=== PATIENT | male | born 1935 | race Caucasian/White ===

== ENCOUNTER 2018-03-18 17:48 | Observation (INO) ==
[2018-03-18 19:08] LABS: Bilirubin,Urine Negative (Negative); Clarity,Urine Clear (Clear); Color,Urine Yellow (Yellw/Straw); Glucose,Urine (UA) Negative (Negative); Leukocyte Esterase,Urine Negative (Negative); Nitrite,Urine Negative (Negative); Specific Gravity,Urine 1.014 (1.002-1.035)
[2018-03-18 19:10] LABS: Baso % (Auto) 0.3 % (0.0-2.0); Eos # (Auto) 0.1 th/mm3 (0.0-0.4); Eos % (Auto) 0.8 % (0.0-4.0); Hematocrit 41.6 % (39.0-51.0); Hemoglobin 13.7 gm/dL (13.0-17.0); Lymph # (Auto) 0.8 th/mm3 (1.0-4.8); Lymph % (Auto) 6.4 % (9.0-44.0); Mean Corpuscular Hemoglobin 28.6 pg (27.0-34.0); Mean Corpuscular Volume 86.8 fL (80.0-100.0); Mean Platelet Volume 8.7 fL (7.0-11.0); Mono % (Auto) 8.1 % (0.0-8.0); Neut % (Auto) 84.4 % (16.0-70.0); Platelet Count 201 th/mm3 (150-450); Red Cell Distribution Width 13.7 % (11.6-17.2); White Blood Count 11.8 th/mm3 (4.0-11.0)
--- NOTE | 2018-03-18 19:19 | XR ---
EXAM DATE: 03/18/2018 7:16 PM EST AGE/SEX: 82 years / Male INDICATIONS: Pain and swelling in entire left foot. CLINICAL DATA: This is the patient's initial encounter. Patient reports that signs and symptoms have been present for 1 day and indicates a pain score of 5/10. MEDICAL/SURGICAL HISTORY: None. None. COMPARISON: No prior exams available for comparison. FINDINGS: No fractures or subluxations are seen of the left foot. Mild talonavicular, navicular/cuneiform and Lisfranc osteoarthritis present. There is associated dors al spurring of the talonavicular joint. Bones are mildly osteopenic. There is mild, generalized soft tissue swelling. No radiopaque foreign b sola demonstrated. CONCLUSION: Intact left foot. Mild hindfoot and midfoot degenerative changes. Nonspecific mild diffuse soft tissue swelling. Electronically signed by: Francis Henry MD 03/18/2018 7:18 PM EST
[2018-03-18 19:28] LABS: Amphetamine Screen,Urine Neg (Neg); Barbiturate Screen,Urine Neg (Neg); Cannabinoid Screen,Urine Neg (Neg); Cocaine Screen,Urine Neg (Neg)
[2018-03-18 19:29] LABS: Opiate Screen,Urine Neg (Neg)
[2018-03-18 19:31] LABS: Alanine Aminotransferase 26 U/L (12-78)
--- NOTE | 2018-03-18 19:31 | CT ---
EXAM DATE: 03/18/2018 7:27 PM EST AGE/SEX: 82 years / Male INDICATIONS: Trauma; head injury. Confusion. CLINICAL DATA: This is the patient's initial encounter. Patient reports that signs and symptoms have been present for 1 day and indicates a pain score of 4/10. MEDICAL/SURGICAL HISTORY: Dementia. None. RADIATION DOSE: 56.35 CTDI (mGy) COMPARISON: POI, MR BRAIN W AND W/O CONTRAST, 01/12/2018. . TECHNIQUE: CT of the head without contrast. Using automated exposure control and adjustment of the mA and/or kV according to patient size, radiation dose was kept as low as reasonably achievable to ob tain optimal diagnostic quality images. DICOM format image data is available electronically for revi ew and comparison. FINDINGS: Cerebrum: The ventricles are normal for age. No evidence of midline shift, mass lesion, hemorrhage or acute infarction. No extraaxial fluid collections are seen. Atrophy and chronic low-attenuation i n the periventricular white matter. 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 Posterior Fossa: The cerebellum and brainstem are intact. The 4th ventricle is midline. The cerebe llopontine angle is unremarkable. Extracranial: The visualized portion of the orbits is intact. Skull: The calvaria is intact. No evidence of skull fracture. CONCLUSION: 1. No bleed or other acute intracranial abnormality. 2. Atrophy and chronic ischemic changes. . Electronically signed by: Francis Henry MD 03/18/2018 7:30 PM EST
[2018-03-18 19:35] LABS: Alkaline Phosphatase 110 U/L (45-117); Total Protein 7.7 g/dL (6.4-8.2)
[2018-03-18 19:36] LABS: Albumin 3.4 g/dL (3.4-5.0); Anion Gap 8 meq/L (5-15); Aspartate Aminotransferase 33 U/L (15-37); Blood Urea Nitrogen 21 mg/dL (7-18); Calcium 9.1 mg/dL (8.5-10.1); Carbon Dioxide 31.6 meq/L (21.0-32.0); Chloride 94 meq/L (98-107); Glomerular Filtration Rate 46 mL/min (>89); Glucose,Random 177 mg/dL (74-106); Magnesium 1.9 mg/dL (1.5-2.5); Potassium 4.4 meq/L (3.5-5.1); Sodium 134 meq/L (136-145)
--- NOTE | 2018-03-18 19:45 | ED ---
HPI General Chief Complaint: Extremity Injury, Lower Stated Complaint: confused Time Seen by Provider: 03/18/18 17:56 Source: patient and family Mode of arrival: ambulatory Limitations: no limitations History of Present Illness HPI narrative: 82 yo M with AMS. + Hx normal pressure hydrocephalus. Increased agitation last few nights per , decreased appetite and generalized weakness. no fever. NPH medication reportedly increased a few days prior by Dr Casillas. L foot pain and swelling reported to be new. No falls. No fever/ chills. No c/o cp/sob. Hx provided mainly by . Related Data Home Medications Medication Instructions Recorded Confirmed amlodipine [Norvasc] 10 mg PO DAILY 03/18/18 03/18/18 aspirin [Aspirin Childrens] 81 mg PO DAILY 03/18/18 03/18/18 atorvastatin [Lipitor] 40 mg PO DAILY 03/18/18 03/18/18 metoprolol succinate [Toprol XL] 25 mg PO DAILY 03/18/18 03/18/18 quetiapine [Seroquel] 400 mg PO BID 03/18/18 03/18/18 triamterene-hydrochlorothiazid 1 cap PO DAILY 03/18/18 03/18/18 Allergies Allergy/AdvReac Type Severity Reaction Status Date / Time benazepril AdvReac Severe swelling Verified 03/18/18 22:51 of face lips captopril AdvReac Severe swelling Verified 03/18/18 22:51 of face lips enalaprilat AdvReac Severe swelling Verified 03/18/18 22:51 of face lips fosinopril AdvReac Severe swelling Verified 03/18/18 22:51 of face lips lisinopril AdvReac Severe swelling Verified 03/18/18 22:51 of face lips quinapril AdvReac Severe swelling Verified 03/18/18 22:51 of face lips Review of Systems ROS: all other systems reviewed are negative PMFSH Social History Social History Substance History: No History of Abuse Smoking Status: Never smoker How Often Do You Have a Drink Containing Alcohol: Never Recent Travel in [place] within the Last 8 Weeks: No Recent Out of Country Travel within the Last 8 Weeks: No Immunization History Tetanus Immunization: >5 Years Exam Narrative Exam Narrative: GENERAL: 82 yo M, WNWD, NAD, speaking full sentences SKIN: Focused skin assessment warm/dry. HEAD: Atraumatic. Normocephalic. EYES: Pupils equal and round. No scleral icterus. No injection or drainage. ENT: No nasal bleeding or discharge. Mucous membranes pink and moist. NECK: Trachea midline. No JVD. CARDIOVASCULAR: Regular rate and rhythm. No murmur appreciated. RESPIRATORY: No accessory muscle use. Clear to auscultation. Breath sounds equal bilaterally. GASTROINTESTINAL: Abdomen soft, non-tender, nondistended. Hepatic and splenic margins not palpable. MUSCULOSKELETAL: Tenderness w edema and warmth about dorsal L foot. 2+ DP bilaterally. RLE normal. No significant calf tenderness or swelling. NEUROLOGICAL: Answers questions. Normal speech. CN III-XII normal. Recent memory limited. PSYCHIATRIC: Appropriate mood and affect; insight and judgment normal. Course Initial Documented Vital Signs Pulse Rate 101 H 03/18/18 17:50 Blood Pressure 149/69 H 03/18/18 17:50 Pulse Oximetry 96 03/18/18 17:50 Last Documented Vital Signs Temperature 100.0 F H 03/18/18 22:05 Pulse Rate 97 H 03/18/18 22:44 Respiratory Rate 21 03/18/18 22:00 Blood Pressure 140/60 03/18/18 22:00 Pulse Oximetry 99 03/18/18 22:44 Critical Care Time Critical Care Time: Yes Total Critical Care Time: 35 Attestation: Aggregate critical care time was 35 minutes. Time to perform other separately billable procedures was not included in the critical care time. My time did not include minutes spent treating any other patients simultaneously or on activities that did not directly contribute to the patient's treatment. The services I provided to this patient were to treat and/or prevent clinically significant deterioration that could result in: septic shock, MODS I provided critical care services requiring my management, as noted below: Chart data review, documentation time, medication orders and management, vital sign assessments/reviewing monitor data, ordering and reviewing lab tests, ordering and interpreting/reviewing x-rays and diagnostic studies, care of the patient and discussion of the patient with the admitting physicians. Medical Decision Making MDM Narrative Medical decision making narrative: Upon reassessment fever 100.0 observed. Sepsis work up started. Possible L foot cellulitis as etiology. AMS with infection present. Keflex started for foot. Influenza pending. Call to [facility] at 1043pm. d/w Dr Artis at 1055pm. Medical Screen Exam Complete: Yes Emergency Medical Condition: Yes Differential Diagnosis Differential Diagnosis: infection, metabolic abnormality, polypharmacy, normal pressure hydrocephalus, CVA Lab Data Lab results reviewed: Yes I reviewed the patient's lab results. Result diagrams: 03/18/18 18:36 03/18/18 18:36 Lab Results 03/18/18 03/18/18 03/18/18 Range/Units 18:19 18:36 18:36 WBC 11.8 H (4.0-11.0) th/mm3 RBC 4.80 (4.50-5.90) mil/mm3 Hgb 13.7 (13.0-17.0) gm/dL Hct 41.6 (39.0-51.0) % MCV 86.8 (80.0-100.0) fL MCH 28.6 (27.0-34.0) pg MCHC 33.0 (32.0-36.0) % RDW 13.7 (11.6-17.2) % Plt Count 201 (150-450) th/mm3 MPV 8.7 (7.0-11.0) fL Neut % (Auto) 84.4 H (16.0-70.0) % Lymph % (Auto) 6.4 L (9.0-44.0) % Hall % (Auto) 8.1 H (0.0-8.0) % Eos % (Auto) 0.8 (0.0-4.0) % Baso % (Auto) 0.3 (0.0-2.0) % Neut # (Auto) 10.0 H (1.8-7.7) th/mm3 Lymph # (Auto) 0.8 L (1.0-4.8) th/mm3 Hall # (Auto) 1.0 H (0.0-0.9) th/mm3 Eos # (Auto) 0.1 (0.0-0.4) th/mm3 Baso # (Auto) 0.0 (0.0-0.2) th/mm3 WBC Differential . Differential Comment Auto diff final Sodium 134 L (136-145) meq/L Potassium 4.4 (3.5-5.1) meq/L Chloride 94 L (98-107) meq/L Carbon Dioxide 31.6 (21.0-32.0) meq/L Anion Gap 8 (5-15) meq/L BUN 21 H (7-18) mg/dL Creatinine 1.45 H (0.60-1.30) mg/dL Estimated GFR 46 L (>89) mL/min Random Glucose 177 H (74-106) mg/dL Lactic Acid (0.4-2.0) mmol/L Calcium 9.1 (8.5-10.1) mg/dL Magnesium 1.9 (1.5-2.5) mg/dL Total Bilirubin 0.8 (0.2-1.0) mg/dL AST 33 (15-37) U/L ALT 26 (12-78) U/L Alkaline Phosphatase 110 (45-117) U/L Troponin I Less than 0.02 L (0.02-0.05) ng/mL Total Protein 7.7 (6.4-8.2) g/dL Albumin 3.4 (3.4-5.0) g/dL Urine Color Yellow (Yellw/Straw) Urine Clarity Clear (Clear) Urine pH 7.0 (5.0-8.5) Ur Specific Matthews 1.014 (1.002-1.035) Urine Protein 30 H (Neg-Trace) mg/dL Urine Glucose (UA) Negative (Negative) mg/dL Urine Ketones Negative (Negative) mg/dL Urine Occult Blood Moderate H (Negative) Urine Nitrate Negative (Negative) Urine Bilirubin Negative (Negative) Urine Urobilinogen Less than 2 (Less than 2) mg/dL Ur Leukocyte Esterase Negative (Negative) Urine RBC 20 H (0-3) /hpf Urine WBC 1 (0-5) /hpf Micro UA Comment Culture not ind Ur Microscopic Review Not Reportable Urine Culture Comments Culture not ind Urine Opiates Screen (Neg) Ur Barbiturates Screen (Neg) Ur Amphetamines Screen (Neg) U Benzodiazepines Scrn (Neg) Urine Cocaine Screen (Neg) U Cannabinoids Screen (Neg) 03/18/18 03/18/18 Range/Units 22:30 Unknown WBC (4.0-11.0) th/mm3 RBC (4.50-5.90) mil/mm3 Hgb (13.0-17.0) gm/dL Hct (39.0-51.0) % MCV (80.0-100.0) fL MCH (27.0-34.0) pg MCHC (32.0-36.0) % RDW (11.6-17.2) % Plt Count (150-450) th/mm3 MPV (7.0-11.0) fL Neut % (Auto) (16.0-70.0) % Lymph % (Auto) (9.0-44.0) % Hall % (Auto) (0.0-8.0) % Eos % (Auto) (0.0-4.0) % Baso % (Auto) (0.0-2.0) % Neut # (Auto) (1.8-7.7) th/mm3 Lymph # (Auto) (1.0-4.8) th/mm3 Hall # (Auto) (0.0-0.9) th/mm3 Eos # (Auto) (0.0-0.4) th/mm3 Baso # (Auto) (0.0-0.2) th/mm3 WBC Differential Differential Comment Sodium (136-145) meq/L Potassium (3.5-5.1) meq/L Chloride (98-107) meq/L Carbon Dioxide (21.0-32.0) meq/L Anion Gap (5-15) meq/L BUN (7-18) mg/dL Creatinine (0.60-1.30) mg/dL Estimated GFR (>89) mL/min Random Glucose (74-106) mg/dL Lactic Acid 1.5 (0.4-2.0) mmol/L Calcium (8.5-10.1) mg/dL Magnesium (1.5-2.5) mg/dL Total Bilirubin (0.2-1.0) mg/dL AST (15-37) U/L ALT (12-78) U/L Alkaline Phosphatase (45-117) U/L Troponin I (0.02-0.05) ng/mL Total Protein (6.4-8.2) g/dL Albumin (3.4-5.0) g/dL Urine Color (Yellw/Straw) Urine Clarity (Clear) Urine pH (5.0-8.5) Ur Specific Matthews (1.002-1.035) Urine Protein (Neg-Trace) mg/dL Urine Glucose (UA) (Negative) mg/dL Urine Ketones (Negative) mg/dL Urine Occult Blood (Negative) Urine Nitrate (Negative) Urine Bilirubin (Negative) Urine Urobilinogen (Less than 2) mg/dL Ur Leukocyte Esterase (Negative) Urine RBC (0-3) /hpf Urine WBC (0-5) /hpf Micro UA Comment Ur Microscopic Review Urine Culture Comments Urine Opiates Screen Neg (Neg) Ur Barbiturates Screen Neg (Neg) Ur Amphetamines Screen Neg (Neg) U Benzodiazepines Scrn Neg (Neg) Urine Cocaine Screen Neg (Neg) U Cannabinoids Screen Neg (Neg) Imaging Data Radiologist's impression: Foot X-Ray 03/18/18 18:18 CONCLUSION: Intact left foot. Mild hindfoot and midfoot degenerative changes. Nonspecific mild diffuse soft tissue swelling. Head CT 03/18/18 18:18 CONCLUSION: 1. No bleed or other acute intracranial abnormality. 2. Atrophy and chronic ischemic changes. . Venous Doppler Study 03/18/18 18:18 CONCLUSION: 1. No sonographic evidence for lower extremity DVT. Chest X-Ray 03/18/18 21:56 CONCLUSION: No acute cardiopulmonary disease. Discharge Plan Discharge Disposition Patient Disposition: 30 Still Patient Physicians Team ED Provider: Aiden Castillo Primary Care Provider: UNKNOWN, Attending Provider: Eva Artis Status ED Status: Admitted Patient
--- NOTE | 2018-03-18 21:53 | US ---
EXAM DATE: 03/18/2018 9:50 PM EST AGE/SEX: 82 years / Male INDICATIONS: Right foot redness and swelling. CLINICAL DATA: This is the patient's initial encounter. Patient reports that signs and symptoms have been present for 1 week and indicates a pain score of 7/10. MEDICAL/SURGICAL HISTORY: Hypertension. Hypercholesterolemia. Chronic obstructive pulmonary d isease. CAD. . Spinal surgery. COMPARISON: No prior exams available for comparison. TECHNIQUE: Venous ultrasound of both lower extremities was performed from the inguinal ligament to t he proximal calf. Real-time, color Doppler and spectral tracing, compression and augmentation techni ques were used. FINDINGS: Right Leg: Normal compression of the deep venous system from the inguinal region to the proximal yvonne f. No echogenic clot is seen. Normal response of the venous system to augmentation and respiration. Left Leg: Normal compression of the deep venous system from the inguinal region to the proximal calf . No echogenic clot is seen. Normal response of the venous system to augmentation and respiration. Other: None. CONCLUSION: 1. No sonographic evidence for lower extremity DVT. Electronically signed by: Carlos Coats MD 03/18/2018 9:52 PM EST
[2018-03-18] MEDS ORDERED: Acetaminophen 325 MG Tablet PO ONE (22:05)
[2018-03-18] MEDS ORDERED: Sod Chloride 0.9% Inj 1,000 ML IV.SIG SCH ×2 (22:15)
--- NOTE | 2018-03-18 22:24 | XR ---
EXAM DATE: 03/18/2018 10:18 PM EST AGE/SEX: 82 years / Male INDICATIONS: Fever. Congestion. CLINICAL DATA: This is the patient's initial encounter. Patient reports that signs and symptoms have been present for 3 days and indicates a pain score of 5/10. MEDICAL/SURGICAL HISTORY: None. None. COMPARISON: [facility], XR CHEST PA AND LAT, 08/04/2017. . FINDINGS: No infiltrate, effusion or pneumothorax demonstrated. Heart size stable, within normal limits. Mildly tortuous thoracic aorta. CONCLUSION: No acute cardiopulmonary disease. Electronically signed by: Francis Henry MD 03/18/2018 10:23 PM EST
[2018-03-19] MEDS ORDERED: Bisacodyl 10 MG Supp RECTAL PRN (01:02)
--- NOTE | 2018-03-19 01:09 | P.HP ---
History of Present Illness Service: [facility] Primary Care Physician: UNKNOWN History of Present Illness: 82-year-old male with a past medical history significant for normal pressure hydrocephalus, peripheral vascular disease, hypertension, dementia and hyperlipidemia presents to the emergency department accompanied by his for the evaluation of altered mental status and a painful, swollen left foot. The patient's reports that on Wednesday the patient became increasingly agitated with confusion and insomnia. She spoke to the patient's neurologist who prescribed Seroquel 25 mg tablets. The patient reports that the pills did not help her and she increase the dose giving him up to 6 and a 24-hour period with no improvement in behavior. She also states that at approximately 9 PM last night the patient began to complain of left foot pain and would no longer bear weight on that foot. She states he has had right lower extremity weakness that also began yesterday which she noticed while trying to get him to stand with his walker. No fevers/chills. No chest pain or shortness of breath. No abdominal pain. No nausea/vomiting/diarrhea. Inpatient Certification: I certify that the inpatient services were ordered in accordance with Medicare regulations governing the order. This includes certification that hospital inpatient services are reasonable and necessary and in the case of services not specified as inpatient-only under 42 CFR 419.22(n), that they are appropriately provided as inpatient services in accordance to with the 2-midnight benchmark under 43 CFR 412.3(e) Review of Systems All other systems reviewed negative except as stated in [facility] - History History Provided By: Patient, Family Member - Medical History Medical History: Medical History (Last Updated 03/19/18 @ 01:07 by Eva Artis MD) Dementia Hyperlipidemia Hypertension Normal pressure hydrocephalus Peripheral vascular disease - Surgical History Surgical History: Surgical History (Last Updated 03/19/18 @ 01:08 by Eva Artis MD) Status post transcatheter aortic valve replacement - Tobacco History Smoking Status: Never smoker - Alcohol History How Often Do You Have a Drink Containing Alcohol: Never - Substance Use History Substance History: No History of Abuse - Travel History Recent Travel in the [place] Within the Last 8 Weeks: No Recent Travel Out of the Country Within the Last 8 Weeks: No - Immunization History Tetanus Immunization: >5 Years Medications and Allergies Active Medications: Active Medications Acetaminophen (Tylenol) 650 mg PO Q4H PRN PRN Reason: Temp > 100.4 Al Hydroxide/Mg Hydroxide (Milk Of Magnesia Liq) 30 ml PO Q12H PRN PRN Reason: Mild Constipation Amlodipine Besylate (Norvasc) 10 mg PO DAILY [facility] Aspirin (Aspirin Chew) 81 mg PO DAILY [facility] Atorvastatin Calcium (Lipitor) 40 mg PO DAILY [facility] Bisacodyl (Dulcolax Supp) 10 mg RECTAL DAILY PRN PRN Reason: SEVERE CONSITIPATION Cephalexin Monohydrate (Keflex) 500 mg PO Q6HR [facility] Heparin Sodium (Porcine) (Heparin Inj) 5,000 units SQ Q12H [facility] Sodium Chloride (Ns Inj) 1,000 mls @ 0 mls/hr IV.SIG .Q0M [facility] Last Infusion: 03/19/18 00:26 Dose: Infused Sodium Chloride (Ns Inj) 1,000 mls @ 0 mls/hr IV.SIG .Q0M [facility] Last Infusion: 03/19/18 00:27 Dose: Infused Sodium Chloride (Ns Inj) 1,000 mls @ 70 mls/hr IV.CONT .[id number] [facility] Lactulose (Lactulose Liq) 30 ml PO DAILY PRN PRN Reason: SEVERE CONSITIPATION Metoprolol Succinate (Toprol Xl) 25 mg PO DAILY [facility] Ondansetron HCl (Zofran Inj) 4 mg IV.PUSH Q6H PRN PRN Reason: NAUSEA OR VOMITING Senna/Docusate Sodium (Radha-Colace) 1 tab PO BID [facility] Sennosides (Senokot) 17.2 mg PO Q12H PRN PRN Reason: Moderate Constipation Sodium Chloride (Ns Flush) 2 ml IV.FLUSH PRN PRN PRN Reason: FLUSH AFTER USING IV ACCESS Last Admin: 03/18/18 21:56 Dose: 2 ml Triamterene/HCTZ (Dyazide 37.5/25 Mg) 1 cap PO DAILY [facility] Allergies Allergy/AdvReac Type Severity Reaction Status Date / Time benazepril AdvReac Severe swelling Verified 03/18/18 22:51 of face lips captopril AdvReac Severe swelling Verified 03/18/18 22:51 of face lips enalaprilat AdvReac Severe swelling Verified 03/18/18 22:51 of face lips fosinopril AdvReac Severe swelling Verified 03/18/18 22:51 of face lips lisinopril AdvReac Severe swelling Verified 03/18/18 22:51 of face lips quinapril AdvReac Severe swelling Verified 03/18/18 22:51 of face lips Home Medications Medication Instructions Recorded Confirmed Type amlodipine [Norvasc] 10 mg PO DAILY 03/18/18 03/18/18 History aspirin [Aspirin Childrens] 81 mg PO DAILY 03/18/18 03/18/18 History atorvastatin [Lipitor] 40 mg PO DAILY 03/18/18 03/18/18 History metoprolol succinate [Toprol XL] 25 mg PO DAILY 03/18/18 03/18/18 History quetiapine [Seroquel] 25 mg PO DAILY 03/18/18 03/19/18 History triamterene-hydrochlorothiazid 1 cap PO DAILY 03/18/18 03/18/18 History cyanocobalamin (vitamin B-12) 1 cap PO DAILY 03/19/18 03/19/18 History [Vitamin B-12] Exam Vital signs: Vital Signs 03/18/18 17:50 03/18/18 17:54 03/18/18 22:00 Temperature Pulse Rate 101 H 102 H 102 H Respiratory Rate 18 21 Blood Pressure 149/69 H 149/69 H 140/60 Pulse Oximetry 96 94 L 96 03/18/18 22:05 03/18/18 22:44 03/19/18 00:27 Temperature 100.0 F H 99.9 F H Pulse Rate 97 H 94 H Respiratory Rate Blood Pressure Pulse Oximetry 99 Intake & Output 03/18/18 03/18/18 03/19/18 06:59 18:59 06:59 Intake Total 2099 Output Total 500 / 500 Balance 1600 / 1600 Weight 194 kg Intake: IV 2099 NS Inj 1,000 ML @ Wide Open IV. 2099 SIG .Q0M [facility] Rx#:[id number] Output: Urine 500 / 500 Narrative: Gen.: No acute distress Head: Normocephalic. Atraumatic. EENT: Pupils equal round and reactive to light. Nose without drainage. Airway intact. Throat without injection. Cardiovascular: Regular rate and rhythm. No murmurs, rubs or gallops. Respiratory: Lungs clear to auscultation bilaterally. No wheezes or rhonchi. Abdomen: Soft, nontender, nondistended. No peritoneal signs. Musculoskeletal: No gross deformities. Swollen, painful left foot/ankle without redness Skin: No obvious rashes or erythema. Neuro: Sensory and motor grossly intact. Cranial nerves II through XII grossly intact. 5/5 upper and lower extremity strength. Results - Labs CBC & Chem 7: 03/18/18 18:36 03/18/18 18:36 Labs: Laboratory Results - last 24 hr 03/18/18 03/18/18 03/18/18 18:19 18:36 18:36 WBC 11.8 H RBC 4.80 Hgb 13.7 Hct 41.6 MCV 86.8 MCH 28.6 MCHC 33.0 RDW 13.7 Plt Count 201 MPV 8.7 Neut % (Auto) 84.4 H Lymph % (Auto) 6.4 L [place] % (Auto) 8.1 H Eos % (Auto) 0.8 Baso % (Auto) 0.3 Neut # (Auto) 10.0 H Lymph # (Auto) 0.8 L [place] # (Auto) 1.0 H Eos # (Auto) 0.1 Baso # (Auto) 0.0 WBC Differential . Differential Comment Auto diff final Sodium 134 L Potassium 4.4 Chloride 94 L Carbon Dioxide 31.6 Anion Gap 8 BUN 21 H Creatinine 1.45 H Estimated GFR 46 L Random Glucose 177 H Lactic Acid Calcium 9.1 Magnesium 1.9 Total Bilirubin 0.8 AST 33 ALT 26 Alkaline Phosphatase 110 Troponin I Less than 0.02 L Total Protein 7.7 Albumin 3.4 Urine Color Yellow Urine Clarity Clear Urine pH 7.0 Ur Specific [place] 1.014 Urine Protein 30 H Urine Glucose (UA) Negative Urine Ketones Negative Urine Occult Blood Moderate H Urine Nitrate Negative Urine Bilirubin Negative Urine Urobilinogen Less than 2 Ur Leukocyte Esterase Negative Urine RBC 20 H Urine WBC 1 Micro UA Comment Culture not ind Ur Microscopic Review Not Reportable Urine Culture Comments Culture not ind Urine Opiates Screen Ur Barbiturates Screen Ur Amphetamines Screen U Benzodiazepines Scrn Urine Cocaine Screen U Cannabinoids Screen 03/18/18 03/18/18 22:30 Unknown WBC RBC Hgb Hct MCV MCH MCHC RDW Plt Count MPV Neut % (Auto) Lymph % (Auto) [place] % (Auto) Eos % (Auto) Baso % (Auto) Neut # (Auto) Lymph # (Auto) [place] # (Auto) Eos # (Auto) Baso # (Auto) WBC Differential Differential Comment Sodium Potassium Chloride Carbon Dioxide Anion Gap BUN Creatinine Estimated GFR Random Glucose Lactic Acid 1.5 Calcium Magnesium Total Bilirubin AST ALT Alkaline Phosphatase Troponin I Total Protein Albumin Urine Color Urine Clarity Urine pH Ur Specific [place] Urine Protein Urine Glucose (UA) Urine Ketones Urine Occult Blood Urine Nitrate Urine Bilirubin Urine Urobilinogen Ur Leukocyte Esterase Urine RBC Urine WBC Micro UA Comment Ur Microscopic Review Urine Culture Comments Urine Opiates Screen Neg Ur Barbiturates Screen Neg Ur Amphetamines Screen Neg U Benzodiazepines Scrn Neg Urine Cocaine Screen Neg U Cannabinoids Screen Neg - Imaging Impressions Foot X-Ray 03/18/18 18:18 CONCLUSION: Intact left foot. Mild hindfoot and midfoot degenerative changes. Nonspecific mild diffuse soft tissue swelling. Head CT 03/18/18 18:18 CONCLUSION: 1. No bleed or other acute intracranial abnormality. 2. Atrophy and chronic ischemic changes. . Venous Doppler Study 03/18/18 18:18 CONCLUSION: 1. No sonographic evidence for lower extremity DVT. Chest X-Ray 03/18/18 21:56 CONCLUSION: No acute cardiopulmonary disease. Caprini VTE Risk Assessment Caprini VTE Risk Assessment: Moderate/High Risk (score >= 2) Caprini Risk Assessment Model: Point Value = 1 Point Value = 2 Point Value = 3 Point Value = 5 Age 41-60 Minor surgery BMI > 25 kg/m2 Swollen legs Varicose veins or History of unexplained or recurrent spontaneous Oral contraceptives or hormone replacement Sepsis (< 1 month) Serious lung disease, including pneumonia (< 1 month) Abnormal pulmonary function Acute myocardial infarction Congestive heart failure (< 1 month) History of inflammatory bowel disease Medical patient at bed rest Age 61-74 Arthroscopic surgery Major open surgery (> 45 min) Laparoscopic surgery (> 45 min) Malignancy Confined to bed (> 72 hours) Immobilizing plaster cast Central venous access Age >= 75 History of VTE Family history of VTE Factor V Leiden Prothrombin [id number] Lupus anticoagulant Anticardiolipin antibodies Elevated serum homocysteine Heparin-induced thrombocytopenia Other congenital or acquired thrombophilia Stroke (< 1 month) Elective arthroplasty Hip, pelvis, or leg fracture Acute spinal cord injury (< 1 month) Prophylaxis Regimen: Total Risk Factor Score Risk Level Prophylaxis Regimen 0-1 Low Early ambulation 2 Moderate Order ONE of the following: *Sequential Compression Device (SCD) *Heparin 5000 units SQ BID 3-4 Higher Order ONE of the following medications: *Heparin 5000 units SQ TID *Enoxaparin/Lovenox 40 mg SQ daily (WT < 150 kg, CrCl > 30 mL/min) *Enoxaparin/Lovenox 30 mg SQ daily (WT < 150 kg, CrCl > 10-29 mL/min) *Enoxaparin/Lovenox 30 mg SQ BID (WT < 150 kg, CrCl > 30 mL/min) AND/OR *Sequential Compression Device (SCD) 5 or more Highest Order ONE of the following medications: *Heparin 5000 units SQ TID (Preferred with Epidurals) *Enoxaparin/Lovenox 40 mg SQ daily (WT < 150 kg, CrCl > 30 mL/min) *Enoxaparin/Lovenox 30 mg SQ daily (WT < 150 kg, CrCl > 10-29 mL/min) *Enoxaparin/Lovenox 30 mg SQ BID (WT < 150 kg, CrCl > 30 mL/min) AND *Sequential Compression Device (SCD) Assessment and Plan - Plan Assessment/plan: 1. Altered mental status/dementia Unclear etiology Head CT negative for acute process Urine drug screen negative Neurology consulted, appreciate recommendations T-max 100.0 on arrival, no obvious signs of infection. Chest x-ray negative for acute process, UA negative Concern for possible cellulitis of left foot, per patient's it was red and hot. Keflex 3. Left foot swelling/pain ? Cellulitis -ABX as above Foot x-ray negative Ankle x-ray pending as patient refusing to bear weight Lower extremity ultrasound negative for DVT 4. Hypertension/hyperlipidemia/dementia Continue home medication 5. NPH Neurology consulted as above 6. AK I At noon 1.45, baseline unknown May be chronic component IV fluid hydration Monitor renal function FEN Regular diet Electrolytes: Monitor and replete as needed Heparin NS at 70 cc/hour
[2018-03-19] MEDS ORDERED: Sod Chloride 0.9% Inj 1,000 ML IV.CONT SCH (01:15)
[2018-03-19] MEDS: Heparin - SQ 10,000 UNITS/ML Vial SQ SCH ×2 (05:04→17:08)
[2018-03-19] MEDS: amLODIPine 10 MG Tablet PO SCH (08:27)
[2018-03-19] MEDS: Senna/Docusate Sodium 8.6/50 MG Tablet PO SCH ×2 (08:27→22:00)
--- NOTE | 2018-03-19 08:56 | XR ---
EXAM DATE: 03/19/2018 8:52 AM EST AGE/SEX: 82 years / Male INDICATIONS: Swelling. CLINICAL DATA: This is the patient's initial encounter. Patient reports that signs and symptoms have been present for 1 day and indicates a pain score of 6/10. MEDICAL/SURGICAL HISTORY: . Hypertension. Hypercholesterolemia. Chronic obstructive pulmonary d isease. CAD. . Spinal surgery. . COMPARISON: [facility], FOOT COMPLETE LEFT 3V, 03/18/2018. . FINDINGS: No acute fracture is seen. The ankle is normally aligned. There are bony density seen inferior to the medial malleolus presumably representing the sequela of prior injury. There is hypertrophic spurring seen at the dorsal aspect of the proximal navicular bone. The bones appear osteopenic. CONCLUSION: No acute bony abnormality is seen. Electronically signed by: Francis Palencia MD 03/19/2018 8:54 AM EST
[2018-03-19] MEDS: Escitalopram 10 MG Tablet PO SCH (09:59)
--- NOTE | 2018-03-19 10:10 | MB ---
cc: Carl Osei MD DATE: 03/19/2018 HISTORY OF PRESENT ILLNESS: An 82-year-old right-handed male with hypertension, hypercholesterolemia, aortic valve replacement with a tissue valve. He takes baby aspirin a day. He had prostate cancer without mets. 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 Was seen in [place] and also the [facility]. Evidently had 2 lumbar drains which may have helped his gait a little bit, but not too much, and it was recommended by the neurology neurosurgeon to his not to put a shunt in. As such, shunt has not been put in. He follows Dr. Casillas in the office. He has been belligerent and very critical, especially over the last month or so. He has been put on Seroquel about a week ago. He has had some difficulty walking. Came in, his right foot is swollen and warm. He has been running a fever. Some peripheral vascular disease apparently, according to his . MEDICATIONS AT HOME: 1. Norvasc. 2. Aspirin. 3. Lipitor. 4. Metoprolol. 5. Seroquel 400 twice a day. 6. Triamterene. CURRENT MEDICATIONS HERE: He is on 1. Lipitor. 2. Aspirin. 3. Keflex. 4. Some subcutaneous heparin. ALLERGIES: HE IS ALLERGIC TO 1. BENAZEPRIL 2. CAPTOPRIL 3. ENALAPRIL. 4. FOSINOPRIL 5. LISINOPRIL. 6. QUINAPRIL. SOCIAL HISTORY: Nonsmoker, drinker, lives with his . FAMILY HISTORY: Negative for cancer, seizure, or stroke. REVIEW OF SYSTEMS: According to his . No diabetes, RI, stent, angioplasty, AFib, Coumadin, renal, hepatic, or pulmonary disease, thyroid disease, lupus, ulcer, seizure, or stroke. PHYSICAL EXAMINATION: VITAL SIGNS: T-max 100, 84, 18, 157/72. NECK: There were no carotid bruits. HEART: Regular rhythm. I did not detect a murmur. NEUROLOGIC: Pupils are equal. Visual rivers are full. Extraocular movements are intact without nystagmus. Face is symmetric with normal sensation. Tongue was midline. There is no drift. He had normal strength in upper and lower extremities bilaterally including the left iliopsoas, hamstring, quadriceps, and toe extensors. It is tender on the left foot and it is swollen. It feels warm. DTRs are trace to absent throughout. Toes were downgoing bilaterally. Pinprick was intact throughout, except for slightly decreased in the left foot. He is not ataxic on [id number]. He does not know the year or the month. He can repeat well, but his short-term memory is 0/3 at 3 and 5 minutes. His mood is good today. LABORATORY STUDIES: His white count was 11.8. CBC otherwise is normal. BMP: His creatinine is 1.45, otherwise normal. LFTs were normal. Troponin negative. UA negative. Urine drug screen negative. CT scan of the brain shows an old right parietal infarct and significant ventriculomegaly and some [id number] cortical atrophy, but it does appear to be consistent with NPH, I would say. He had a venous Doppler of his leg taken. No evidence for DVT on either leg. He had an ankle x-ray that was normal. IMPRESSION: Normal pressure hydrocephalus with dementia. We will try him on some Namenda. We can keep him off of Seroquel for now, see how he does. Physical therapy ambulated him and he did not do too bad with favored that right leg due to pain. Certainly without a shunt and the NPH, he has developed significant dementia and he can follow up with Dr. Casillas for that. We will stick him on some Namenda here. When his infection in his foot is resolved, he could be discharged. Since he has been very hypercritical, I am going to start him on some Lexapro here. He has had an old stroke, right parietal, and I am going to defer to his followup with Dr. Casillas about any workup that has been done in the past or that he needs for that. MD ALCIDES Boyce/gerald , 09:30 AM , 09:39 AM
--- NOTE | 2018-03-19 13:41 | ECG ---
Date Performed: 03/18/2018 Time Performed: 18:43:45 PTAGE: 82 years EKG: Sinus rhythm WITH FIRST DEGREE AV BLOCK MARKED LEFT AXIS DEVIATION INTRAVENTRICULAR CONDUCTION DELAY ABNORMAL ECG NO PREVIOUS TRACING DOCTOR: Danny Torres Interpretating Date/Time 03/19/2018 13:40:42
[2018-03-19] MEDS ORDERED: Polyethylene Glycol 3350 17 GM Packet PO ONE (15:00)
[2018-03-19 19:43] LABS: Uric Acid 5.9 mg/dl (2.6-7.2)
--- NOTE | 2018-03-19 19:51 | CT ---
EXAM DATE: 03/19/2018 7:33 PM EST AGE/SEX: 82 years / Male INDICATIONS: Left ankle pain and swelling. No known injury. CLINICAL DATA: This is the patient's initial encounter. Patient reports that signs and symptoms have been present for > 1 year and indicates a pain score of 10/10. MEDICAL/SURGICAL HISTORY: Hypertension. Dementia. PVD. None. RADIATION DOSE: 7.29 CTDI (mGy) COMPARISON: [facility], ANKLE COMPLETE LEFT MIN 3V, 03/19/2018. . TECHNIQUE: Multiple contiguous axial images were acquired using a multirow detector CT scanner witho ut contrast. Multiplanar reconstruction was performed in the sagittal and coronal planes. Using aut omated exposure control and adjustment of the mA and/or kV according to patient size, radiation dose was kept as low as reasonably achievable to obtain optimal diagnostic quality images. DICOM format i mage data is available electronically for review and comparison. FINDINGS: There is generalized osteopenia. No acute fractures or subluxations are demonstrated. There is mild t o moderate ankle, subtalar, talonavicular and calcaneocuboid osteoarthritis. Small osteochondral bodi es are seen posteriorly of the tibiotalar joint. There are old, small avulsion fracture fragments of the tip of the medial malleolus and to a lesser extent the tip of the lateral malleolus. Focal benign -appearing cystic change seen of the calcaneus in the region of the ligament of the sinus Tarsi. Ther e does appear to be some synovial thickening within the sinus Tarsi. Mild thickening and marginal indistinctness of the peroneus brevis and longus tendons. No evidence of tear. There is mild thickening of the Achilles tendon. There is fairly generalized but lateral predominant subcutaneous edema. Nothing organized or drainabl e. CONCLUSION: 1. No fracture or subluxation of the left ankle. No destructive bone changes are demonstrated. 2. 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 3. Probable synovitis in the sinus Tarsi, nonspecific. 4. Evidence of old medial and lateral ankle sprains/avulsion fractures. No acute ligamentous abnorm ality demonstrated. 5. Mild peroneal tendinosis without evidence of tear. 6. Mild Achilles tendinosis. 7. Lateral predominant subcutaneous edema. No organized or drainable fluid seen. Electronically signed by: Francis Henry MD 03/19/2018 7:49 PM EST
[2018-03-20] MEDS ORDERED: Melatonin 5 MG Tablet PO ONE (01:59)
[2018-03-20] MEDS: Heparin - SQ 10,000 UNITS/ML Vial SQ SCH ×2 (06:35→17:11)
[2018-03-20 07:11] LABS: Baso % (Auto) 0.2 % (0.0-2.0); Eos # (Auto) 0.2 th/mm3 (0.0-0.4); Hematocrit 34.5 % (39.0-51.0); Hemoglobin 11.7 gm/dL (13.0-17.0); Lymph # (Auto) 0.7 th/mm3 (1.0-4.8); Mean Corpuscular HGB Conc 33.8 % (32.0-36.0); Mean Corpuscular Hemoglobin 29.7 pg (27.0-34.0); Mean Corpuscular Volume 87.7 fL (80.0-100.0); Mean Platelet Volume 9.2 fL (7.0-11.0); Mono # (Auto) 0.8 th/mm3 (0.0-0.9); Mono % (Auto) 8.3 % (0.0-8.0); Neut # (Auto) 8.3 th/mm3 (1.8-7.7); Neut % (Auto) 82.5 % (16.0-70.0); Platelet Count 190 th/mm3 (150-450); Red Blood Count 3.93 mil/mm3 (4.50-5.90); Red Cell Distribution Width 13.6 % (11.6-17.2); White Blood Count 10.1 th/mm3 (4.0-11.0)
[2018-03-20 07:21] LABS: Calcium 8.5 mg/dL (8.5-10.1); Carbon Dioxide 30.5 meq/L (21.0-32.0); Potassium 3.8 meq/L (3.5-5.1)
--- NOTE | 2018-03-20 07:55 | P.PN ---
Subjective Interval history: Follow-up on patient with normal pressure hydrocephalus, left ankle pain. Patient seen and examined. is at the bedside. Also discussed with nursing staff, patient did not sleep well last night. Patient's states he has been more confused today similar to what she has been witnessing at home for the past 10 days. Patient states that the swelling and pain in the left ankle has improved. communicates the patient's had some difficulty swallowing at home. Patient still has not had a bowel movement. He denies any fever, chills or cough. He denies any chest pain or shortness of breath. He denies any nausea, vomiting or abdominal pain. Physical Exam Vital signs: Vital Signs 03/19/18 08:00 03/19/18 12:00 03/19/18 12:19 Temperature 99.5 F 98.6 F Pulse Rate 84 80 Respiratory Rate 18 18 Blood Pressure 157/72 H 169/72 H Pulse Oximetry 95 94 L 96 03/19/18 12:25 03/19/18 15:04 03/19/18 16:00 Temperature 98.3 F Pulse Rate 85 86 Respiratory Rate 12 18 Blood Pressure 137/63 Pulse Oximetry 94 L 03/19/18 17:29 03/19/18 17:40 03/19/18 20:00 Temperature 98.9 F Pulse Rate 82 85 Respiratory Rate 20 Blood Pressure 157/71 H Pulse Oximetry 96 92 L 03/19/18 20:30 03/20/18 00:00 03/20/18 01:04 Temperature 98.8 F Pulse Rate 82 86 Respiratory Rate 20 16 Blood Pressure 140/87 Pulse Oximetry 91 L 03/20/18 04:00 03/20/18 07:00 Temperature 97.3 F L Pulse Rate 85 Respiratory Rate 20 12 Blood Pressure 161/72 H Pulse Oximetry 91 L Intake & Output 03/19/18 03/20/18 03/20/18 18:59 06:59 18:59 Intake Total 640 / 640 Output Total 750 / 750 Balance -110 / -110 Weight 98.9 kg Intake: IV 140 / 140 NS Inj 1,000 ML @ 70 mls/hr IV. 140 / 140 CONT .[id number] [facility] Rx#:[id number] Oral 500 / 500 Output: Urine 750 / 750 Other: Post Void Residual 3 Date of Last Bowel Movement 03/17/18 03/17/18 Narrative: GENERAL: Well-developed well-nourished elderly male patient, no acute distress. Awake and alert. Confused. is at the bedside. SKIN: Warm and dry. No generalized rash. +Lipomas right upper back. HEENT: Atraumatic. Normocephalic. Pupils equal and round. No scleral icterus. No injection or drainage. No nasal bleeding or discharge. Mucous membranes pink and moist. NECK: Trachea midline. CARDIOVASCULAR: Regular rate and rhythm. RESPIRATORY: No accessory muscle use. Clear to auscultation. Breath sounds equal bilaterally. GASTROINTESTINAL: Abdomen soft, non-tender, nondistended. +BS. MUSCULOSKELETAL: Extremities without clubbing or cyanosis, or edema. Left foot/ ankle edema less prominent. Mildly tender to palpation. Patient has tenderness to palpation of the instep of the right foot. No signs or symptoms of infection. NEUROLOGICAL: Awake and alert. Confused. Partially oriented. No obvious cranial nerve deficits. Able to move all extremities spontaneously. Nonfocal. Normal speech. PSYCHIATRIC: Calm and cooperative. Judgment and insight are poor. Results - Labs CBC & Chem 7: 03/20/18 04:23 03/20/18 04:23 Laboratory Results - last 24 hr 03/19/18 03/19/18 03/20/18 18:46 18:46 04:23 WBC 10.1 RBC 3.93 L Hgb 11.7 L D Hct 34.5 L MCV 87.7 MCH 29.7 MCHC 33.8 RDW 13.6 Plt Count 190 MPV 9.2 Neut % (Auto) 82.5 H Lymph % (Auto) 7.0 L Ogle % (Auto) 8.3 H Eos % (Auto) 2.0 Baso % (Auto) 0.2 Neut # (Auto) 8.3 H Lymph # (Auto) 0.7 L Ogle # (Auto) 0.8 Eos # (Auto) 0.2 Baso # (Auto) 0.0 WBC Differential . Differential Comment Auto diff final ESR 52 H Sodium Potassium Chloride Carbon Dioxide Anion Gap BUN Creatinine Estimated GFR Random Glucose Uric Acid 5.9 Calcium C-Reactive Protein 23.00 H 03/20/18 04:23 WBC RBC Hgb Hct MCV MCH MCHC RDW Plt Count MPV Neut % (Auto) Lymph % (Auto) Ogle % (Auto) Eos % (Auto) Baso % (Auto) Neut # (Auto) Lymph # (Auto) Ogle # (Auto) Eos # (Auto) Baso # (Auto) WBC Differential Differential Comment ESR Sodium 140 Potassium 3.8 Chloride 101 Carbon Dioxide 30.5 Anion Gap 9 BUN 29 H Creatinine 1.44 H Estimated GFR 47 L Random Glucose 186 H Uric Acid Calcium 8.5 C-Reactive Protein Microbiology 03/18/18 22:30 Blood - Peripheral Aerobic Blood Culture - Preliminary No growth in 1 day 03/18/18 22:30 Blood - Peripheral Anaerobic Blood Culture - Preliminary No growth in 1 day 03/18/18 22:30 Blood - Peripheral Aerobic Blood Culture - Preliminary No growth in 1 day 03/18/18 22:30 Blood - Peripheral Anaerobic Blood Culture - Preliminary No growth in 1 day - Imaging Impressions Ankle CT 03/19/18 00:00 CONCLUSION: 1. No fracture or subluxation of the left ankle. No destructive bone changes are demonstrated. 2. 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 3. Probable synovitis in the sinus Tarsi, nonspecific. 4. Evidence of old medial and lateral ankle sprains/avulsion fractures. No acute ligamentous abnormality demonstrated. 5. Mild peroneal tendinosis without evidence of tear. 6. Mild Achilles tendinosis. 7. Lateral predominant subcutaneous edema. No organized or drainable fluid seen. Ankle X-Ray 03/19/18 00:00 CONCLUSION: No acute bony abnormality is seen. Assessment and Plan - Plan 82-year-old male with a past medical history significant for normal pressure hydrocephalus, peripheral vascular disease, hypertension, dementia and hyperlipidemia presents to the emergency department accompanied by his for the evaluation of altered mental status and a painful, swollen left foot. Altered mental status/acute encephalopathy likely multifactorial in patient with normal pressure hydrocephalus with dementia. Also patient with insomnia/ poor sleep last night which may be contributing factor. Unclear etiology Head CT negative for acute process Urine drug screen negative Neurology consulted, appreciate recommendations T-max 100.0 on arrival, no obvious signs of infection. Chest x-ray negative for acute process, UA negative Concern for possible cellulitis of left foot, per patient's it was red and hot. Keflex NPH -Nephrology following, appreciate assistance. Started on Namenda and Lexapro. Keep patient off of Seroquel. Cleared for discharge, needs to follow-up with Dr. Casillas as outpatient. Left foot swelling/pain, improved ? Cellulitis Possible gout/pseudogout ESR 52, CRP 23 Foot x-ray negative Ankle x-ray negative CT ankle no evidence of fracture or subluxation, osteoarthritis, probable synovitis and tendinosis, subcutaneous edema without organized or drainable fluid Lower extremity ultrasound negative for DVT -Continue on Keflex -Continue on Colchicine -Continue to monitor for improvement Hypertension/hyperlipidemia/dementia -Continue patient on Dyazide, Norvasc and Toprol XL -Continue on Lipitor 40 mg daily Suspected chronic kidney disease At noon 1.45, baseline unknown May be chronic component IV fluid hydration Monitor renal function Diabetes HgbA1c 8.3 -Change to heart healthy diabetic diet -Start on Accu-Cheks with insulin sliding scale Chronic right leg/foot pain Hx of PVD -continue with PT Dysphagia -Consult speech therapy for swallow evaluation Insomnia -Started on Risperdal by neurology DVT prophylaxis -Patient is on Heparin Discussed Condition With: patient, nursing staff, Dr. Jensen Discharge Planning: Likely discharge in next 24-48 hours to [place]. Case management assisting with discharge planning.
[2018-03-20] MEDS: Escitalopram 10 MG Tablet PO SCH (08:43)
[2018-03-20] MEDS: Senna/Docusate Sodium 8.6/50 MG Tablet PO SCH ×2 (08:43→21:09)
[2018-03-20] MEDS: amLODIPine 10 MG Tablet PO SCH (08:43)
[2018-03-20 09:27] LABS: Hemoglobin A1c 8.3 % (4.3-6.0)
[2018-03-20] MEDS ORDERED: Temazepam 15 MG Capsule PO PRN (11:01)
--- NOTE | 2018-03-20 11:05 | P.PNNEU ---
Subjective Active Medications: Active Medications Acetaminophen (Tylenol) 650 mg PO Q4H PRN PRN Reason: Temp > 100.4 Al Hydroxide/Mg Hydroxide (Milk Of Magnesia Liq) 30 ml PO Q12H PRN PRN Reason: Mild Constipation Last Admin: 03/20/18 08:42 Dose: 30 ml Amlodipine Besylate (Norvasc) 10 mg PO DAILY [facility] Last Admin: 03/20/18 08:43 Dose: 10 mg Aspirin (Aspirin Chew) 81 mg PO DAILY [facility] Last Admin: 03/20/18 08:43 Dose: 81 mg Atorvastatin Calcium (Lipitor) 40 mg PO DAILY [facility] Last Admin: 03/20/18 08:42 Dose: 40 mg Bisacodyl (Dulcolax Supp) 10 mg RECTAL DAILY PRN PRN Reason: SEVERE CONSITIPATION Cephalexin Monohydrate (Keflex) 500 mg PO Q6HR [facility] Last Admin: 03/20/18 06:35 Dose: 500 mg Colchicine (Colcrys) 0.6 mg PO DAILY [facility] Escitalopram Oxalate (Lexapro) 10 mg PO DAILY [facility] Last Admin: 03/20/18 08:43 Dose: 10 mg Heparin Sodium (Porcine) (Heparin Inj) 5,000 units SQ Q12H [facility] Last Admin: 03/20/18 06:35 Dose: 5,000 units Lactulose (Lactulose Liq) 30 ml PO DAILY PRN PRN Reason: SEVERE CONSITIPATION Melatonin (Melatonin) 5 mg PO HS PRN PRN Reason: INSOMNIA Memantine (Namenda) 5 mg PO DAILY [facility] Last Admin: 03/20/18 08:43 Dose: 5 mg Metoprolol Succinate (Toprol Xl) 25 mg PO DAILY [facility] Last Admin: 03/20/18 08:43 Dose: 25 mg Ondansetron HCl (Zofran Inj) 4 mg IV.PUSH Q6H PRN PRN Reason: NAUSEA OR VOMITING Last Admin: 03/19/18 09:05 Dose: 4 mg Risperidone (Risperdal) 0.25 mg PO DAILY [facility] Senna/Docusate Sodium (Radha-Colace) 1 tab PO BID [facility] Last Admin: 03/20/18 08:43 Dose: 1 tab Sennosides (Senokot) 17.2 mg PO Q12H PRN PRN Reason: Moderate Constipation Sodium Chloride (Ns Flush) 2 ml IV.FLUSH PRN PRN PRN Reason: FLUSH AFTER USING IV ACCESS Last Admin: 03/18/18 21:56 Dose: 2 ml Temazepam (Restoril) 15 mg PO HS PRN PRN Reason: INSOMNIA Triamterene/HCTZ (Dyazide 37.5/25 Mg) 1 cap PO DAILY [facility] Last Admin: 03/20/18 08:43 Dose: 1 cap Allergies/Adverse Reactions: Allergies Allergy/AdvReac Type Severity Reaction Status Date / Time benazepril AdvReac Severe swelling Verified 03/18/18 22:51 of face lips captopril AdvReac Severe swelling Verified 03/18/18 22:51 of face lips enalaprilat AdvReac Severe swelling Verified 03/18/18 22:51 of face lips fosinopril AdvReac Severe swelling Verified 03/18/18 22:51 of face lips lisinopril AdvReac Severe swelling Verified 03/18/18 22:51 of face lips quinapril AdvReac Severe swelling Verified 03/18/18 22:51 of face lips Physical Exam Vital signs: Vital Signs 03/19/18 12:00 03/19/18 12:19 03/19/18 12:25 Temperature 98.6 F Pulse Rate 80 85 Respiratory Rate 18 Blood Pressure 169/72 H Pulse Oximetry 94 L 96 03/19/18 15:04 03/19/18 16:00 03/19/18 17:29 Temperature 98.3 F Pulse Rate 86 82 Respiratory Rate 12 18 Blood Pressure 137/63 Pulse Oximetry 94 L 03/19/18 17:40 03/19/18 20:00 03/19/18 20:30 Temperature 98.9 F Pulse Rate 85 82 Respiratory Rate 20 Blood Pressure 157/71 H Pulse Oximetry 96 92 L 03/20/18 00:00 03/20/18 01:04 03/20/18 04:00 Temperature 98.8 F 97.3 F L Pulse Rate 86 85 Respiratory Rate 20 16 20 Blood Pressure 140/87 161/72 H Pulse Oximetry 91 L 91 L 03/20/18 07:00 03/20/18 08:00 03/20/18 09:16 Temperature 98.1 F Pulse Rate 77 77 Respiratory Rate 12 20 Blood Pressure 156/72 H Pulse Oximetry 95 Intake & Output 03/19/18 03/20/18 03/20/18 18:59 06:59 18:59 Intake Total 640 / 640 Output Total 750 / 750 Balance -110 / -110 Weight 98.9 kg Intake: IV 140 / 140 NS Inj 1,000 ML @ 70 mls/hr IV. 140 / 140 CONT .[id number] [facility] Rx#:[id number] Oral 500 / 500 Output: Urine 750 / 750 Other: Post Void Residual 3 Date of Last Bowel Movement 03/17/18 03/17/18 Narrative: awake alert confused Objective Laboratory Results - last 24 hr 03/19/18 03/19/18 03/20/18 18:46 18:46 04:23 WBC 10.1 RBC 3.93 L Hgb 11.7 L D Hct 34.5 L MCV 87.7 MCH 29.7 MCHC 33.8 RDW 13.6 Plt Count 190 MPV 9.2 Neut % (Auto) 82.5 H Lymph % (Auto) 7.0 L Dolores % (Auto) 8.3 H Eos % (Auto) 2.0 Baso % (Auto) 0.2 Neut # (Auto) 8.3 H Lymph # (Auto) 0.7 L Dolores # (Auto) 0.8 Eos # (Auto) 0.2 Baso # (Auto) 0.0 WBC Differential . Differential Comment Auto diff final ESR 52 H Sodium Potassium Chloride Carbon Dioxide Anion Gap BUN Creatinine Estimated GFR Random Glucose Hemoglobin A1c Uric Acid 5.9 Calcium C-Reactive Protein 23.00 H 03/20/18 03/20/18 04:23 04:23 WBC RBC Hgb Hct MCV MCH MCHC RDW Plt Count MPV Neut % (Auto) Lymph % (Auto) Dolores % (Auto) Eos % (Auto) Baso % (Auto) Neut # (Auto) Lymph # (Auto) Dolores # (Auto) Eos # (Auto) Baso # (Auto) WBC Differential Differential Comment ESR Sodium 140 Potassium 3.8 Chloride 101 Carbon Dioxide 30.5 Anion Gap 9 BUN 29 H Creatinine 1.44 H Estimated GFR 47 L Random Glucose 186 H Hemoglobin A1c 8.3 H Uric Acid Calcium 8.5 C-Reactive Protein Microbiology 03/18/18 22:30 Aerobic Blood Culture - Preliminary Blood - Peripheral No growth in 2 days Anaerobic Blood Culture - Preliminary No growth in 2 days 03/18/18 22:30 Aerobic Blood Culture - Preliminary Blood - Peripheral No growth in 2 days Anaerobic Blood Culture - Preliminary No growth in 2 days Review/Management - Review/Management Plan: imp did not sleep well oob sleep regiment i dw ok by me to rehab
[2018-03-20] MEDS ORDERED: Bisacodyl 10 MG Supp RECTAL ONE (15:31)
[2018-03-20] MEDS ORDERED: Dextrose 50% in Water 50 ML Vial IV.PUSH PRN (15:45)
[2018-03-20] MEDS: Insulin NovoLOG Aspart Correctional Sugar Inj SQ SCH ×2 (16:35→21:10)
[2018-03-20] MEDS: Melatonin 5 MG Tablet PO PRN (21:09)
[2018-03-21] MEDS: Heparin - SQ 10,000 UNITS/ML Vial SQ SCH ×2 (05:57→18:00)
--- NOTE | 2018-03-21 08:41 | P.PNNEU ---
Subjective Active Medications: Active Medications Acetaminophen (Tylenol) 650 mg PO Q4H PRN PRN Reason: Temp > 100.4 Al Hydroxide/Mg Hydroxide (Milk Of Magnesia Liq) 30 ml PO Q12H PRN PRN Reason: Mild Constipation Last Admin: 03/20/18 08:42 Dose: 30 ml Amlodipine Besylate (Norvasc) 10 mg PO DAILY [facility] Last Admin: 03/20/18 08:43 Dose: 10 mg Aspirin (Aspirin Chew) 81 mg PO DAILY [facility] Last Admin: 03/20/18 08:43 Dose: 81 mg Atorvastatin Calcium (Lipitor) 40 mg PO DAILY [facility] Last Admin: 03/20/18 08:42 Dose: 40 mg Bisacodyl (Dulcolax Supp) 10 mg RECTAL DAILY PRN PRN Reason: SEVERE CONSITIPATION Cephalexin Monohydrate (Keflex) 500 mg PO Q6HR [facility] Last Admin: 03/21/18 05:57 Dose: 500 mg Colchicine (Colcrys) 0.6 mg PO DAILY [facility] Last Admin: 03/20/18 11:14 Dose: 0.6 mg Dextrose (D50w Vial) 50 ml IV.PUSH UNSCH PRN PRN Reason: PER HYPOGLYCEMIA PROTOCOL Escitalopram Oxalate (Lexapro) 10 mg PO DAILY [facility] Last Admin: 03/20/18 08:43 Dose: 10 mg Glucagon (Glucagon Inj) 1 mg OTHER PRN PRN PRN Reason: for Hypoglycemia Protocol Heparin Sodium (Porcine) (Heparin Inj) 5,000 units SQ Q12H [facility] Last Admin: 03/21/18 05:57 Dose: 5,000 units Insulin Aspart (Novolog Insulin Correctional Sugar Inj) 0 unit SQ [facility]; Protocol Last Admin: 03/20/18 21:10 Dose: 100 unit Lactulose (Lactulose Liq) 30 ml PO DAILY PRN PRN Reason: SEVERE CONSITIPATION Melatonin (Melatonin) 5 mg PO HS PRN PRN Reason: INSOMNIA Last Admin: 03/20/18 21:09 Dose: 5 mg Memantine (Namenda) 5 mg PO DAILY [facility] Last Admin: 03/20/18 08:43 Dose: 5 mg Metoprolol Succinate (Toprol Xl) 25 mg PO DAILY [facility] Last Admin: 03/20/18 08:43 Dose: 25 mg Ondansetron HCl (Zofran Inj) 4 mg IV.PUSH Q6H PRN PRN Reason: NAUSEA OR VOMITING Last Admin: 03/19/18 09:05 Dose: 4 mg Risperidone (Risperdal) 0.25 mg PO DAILY [facility] Last Admin: 03/21/18 01:36 Dose: 0.25 mg Senna/Docusate Sodium (Radha-Colace) 1 tab PO BID [facility] Last Admin: 03/20/18 21:09 Dose: 1 tab Sennosides (Senokot) 17.2 mg PO Q12H PRN PRN Reason: Moderate Constipation Sodium Chloride (Ns Flush) 2 ml IV.FLUSH PRN PRN PRN Reason: FLUSH AFTER USING IV ACCESS Last Admin: 03/18/18 21:56 Dose: 2 ml Temazepam (Restoril) 15 mg PO HS PRN PRN Reason: INSOMNIA Triamterene/HCTZ (Dyazide 37.5/25 Mg) 1 cap PO DAILY [facility] Last Admin: 03/20/18 08:43 Dose: 1 cap Allergies/Adverse Reactions: Allergies Allergy/AdvReac Type Severity Reaction Status Date / Time benazepril AdvReac Severe swelling Verified 03/18/18 22:51 of face lips captopril AdvReac Severe swelling Verified 03/18/18 22:51 of face lips enalaprilat AdvReac Severe swelling Verified 03/18/18 22:51 of face lips fosinopril AdvReac Severe swelling Verified 03/18/18 22:51 of face lips lisinopril AdvReac Severe swelling Verified 03/18/18 22:51 of face lips quinapril AdvReac Severe swelling Verified 03/18/18 22:51 of face lips Physical Exam Vital signs: Vital Signs 03/20/18 09:16 03/20/18 12:00 03/20/18 13:54 Temperature 98.5 F Pulse Rate 77 76 77 Respiratory Rate 20 Blood Pressure 138/88 Pulse Oximetry 92 L 03/20/18 16:00 03/20/18 16:23 03/20/18 17:07 Temperature 97.8 F Pulse Rate 73 Respiratory Rate 20 12 Blood Pressure 139/63 Pulse Oximetry 92 L 92 L 03/20/18 20:00 03/21/18 00:00 03/21/18 01:09 Temperature 98.1 F 98.5 F Pulse Rate 82 79 Respiratory Rate 18 18 16 Blood Pressure 161/74 H 160/73 H Pulse Oximetry 94 L 95 03/21/18 04:00 Temperature 98.2 F Pulse Rate 80 Respiratory Rate 18 Blood Pressure 158/73 H Pulse Oximetry 95 Intake & Output 03/20/18 03/21/18 03/21/18 18:59 06:59 18:59 Intake Total 240 / 240 Output Total 200 / 200 Balance 239 / 239 -200 / -200 Weight 98.8 kg Intake: Oral 240 / 240 Output: Urine 200 / 200 Other: Date of Last Bowel Movement 03/17/18 03/20/18 # Bowel Movements 1 Narrative: awake alert restless Objective Laboratory Results - last 24 hr 03/20/18 03/20/18 03/20/18 04:23 16:25 21:08 POC Glucose 236 H 178 H Hemoglobin A1c 8.3 H Microbiology 03/18/18 22:30 Aerobic Blood Culture - Preliminary Blood - Peripheral No growth in 2 days Anaerobic Blood Culture - Preliminary No growth in 2 days 03/18/18 22:30 Aerobic Blood Culture - Preliminary Blood - Peripheral No growth in 2 days Anaerobic Blood Culture - Preliminary No growth in 2 days Review/Management - Review/Management Plan: imp did not sleep well oob sleep regiment i dw ok by me to rehab 03/21/18 slep 4.5 hours last pm restless this am wants him on antipsychotic during vivek so i added the seroquel in am i warned her yest of inc morbidity and mortality of these meds she is insistent i told her better to just work on sleep more but she wants daytime dose so i started oob work of energy keep awake during day lexapro at higher dose in future and off antipsychotics lobsterman would be better but willuse for now
[2018-03-21] MEDS: amLODIPine 10 MG Tablet PO SCH (10:09)
[2018-03-21] MEDS: Escitalopram 10 MG Tablet PO SCH (10:10)
[2018-03-21] MEDS: Senna/Docusate Sodium 8.6/50 MG Tablet PO SCH ×2 (10:10→23:18)
[2018-03-21] MEDS: QUEtiapine 25 MG Tablet PO SCH (10:10)
[2018-03-21] MEDS: Insulin NovoLOG Aspart Correctional Sugar Inj SQ SCH ×4 (10:12→23:28)
--- NOTE | 2018-03-21 17:55 | P.PN ---
Subjective Interval history: Late entry, patient seen earlier this morning Follow-up on patient with normal pressure hydrocephalus, left ankle pain. Patient seen and examined. is at the bedside. Patient still had a difficult night last night with recurrent agitation. Patient's voices concern to leave her 's bedside. Patient's also states that he was very congested last night she could hear audible wheezing. Patient remains pleasantly confused. He does report that the pain in his feet is better. He denies any fever or chills. He denies any chest pain or shortness of breath. Physical Exam Vital signs: Vital Signs 03/20/18 20:00 03/21/18 00:00 03/21/18 01:09 Temperature 98.1 F 98.5 F Pulse Rate 82 79 Respiratory Rate 18 18 16 Blood Pressure 161/74 H 160/73 H Pulse Oximetry 94 L 95 03/21/18 04:00 03/21/18 08:00 03/21/18 11:56 Temperature 98.2 F 97.5 F L 98.1 F Pulse Rate 80 73 85 Respiratory Rate 18 18 20 Blood Pressure 158/73 H 138/65 153/70 H Pulse Oximetry 95 94 L 94 L Intake & Output 03/20/18 03/21/18 03/21/18 18:59 06:59 18:59 Intake Total 240 / 240 Output Total 200 / 200 Balance 239 / 239 -200 / -200 Weight 98.8 kg Intake: Oral 240 / 240 Output: Urine 200 / 200 Other: Date of Last Bowel Movement 03/17/18 03/20/18 # Bowel Movements 1 Narrative: GENERAL: Well-developed well-nourished elderly male patient, no acute distress. Awake and alert. Confused. Restless. is at the bedside. SKIN: Warm and dry. No generalized rash. +Lipoma right upper back. HEENT: Atraumatic. Normocephalic. EOMI. No scleral icterus. No injection or drainage. No nasal bleeding or discharge. Mucous membranes pink and moist. NECK: Trachea midline. CARDIOVASCULAR: Regular rate and rhythm. RESPIRATORY: No accessory muscle use. Poor effort. Clear to auscultation. Breath sounds equal bilaterally. No rhonchi or wheezing appreciated. GASTROINTESTINAL: Abdomen soft, non-tender, nondistended. +BS. MUSCULOSKELETAL: Extremities without clubbing or cyanosis, or edema. Left foot/ ankle edema less prominent. NTTP bilateral feet. NEUROLOGICAL: Awake and alert. Confused. Partially oriented. No obvious cranial nerve deficits. Able to move all extremities spontaneously. Nonfocal. Rambling speech. PSYCHIATRIC: Calm and cooperative. Judgment and insight are poor. Results - Labs CBC & Chem 7: 03/20/18 04:23 03/20/18 04:23 Laboratory Results - last 24 hr 03/20/18 03/21/18 03/21/18 21:08 08:36 13:12 POC Glucose 178 H 172 H 210 H Microbiology 03/18/18 22:30 Blood - Peripheral Aerobic Blood Culture - Preliminary No growth in 3 days 03/18/18 22:30 Blood - Peripheral Anaerobic Blood Culture - Preliminary No growth in 3 days 03/18/18 22:30 Blood - Peripheral Aerobic Blood Culture - Preliminary No growth in 3 days 03/18/18 22:30 Blood - Peripheral Anaerobic Blood Culture - Preliminary No growth in 3 days Assessment and Plan - Plan 82-year-old male with a past medical history significant for normal pressure hydrocephalus, peripheral vascular disease, hypertension, dementia and hyperlipidemia presents to the emergency department accompanied by his for the evaluation of altered mental status and a painful, swollen left foot. Altered mental status/acute encephalopathy likely multifactorial in patient with normal pressure hydrocephalus with dementia. Also patient with insomnia/ poor sleep last night which may be contributing factor. Unclear etiology Head CT negative for acute process Urine drug screen negative Neurology consulted, appreciate recommendations T-max 100.0 on arrival, no obvious signs of infection. Chest x-ray negative for acute process, UA negative Concern for possible cellulitis of left foot, per patient's it was red and hot. Keflex NPH -Neurology following, appreciate assistance. Started on Namenda and Lexapro. Cleared for discharge, needs to follow-up with Dr. Casillas as outpatient. Patient's is requesting of Dr. Casillas can see patient while he is in- house. Left foot swelling/pain, improved ? Cellulitis Possible gout/pseudogout ESR 52, CRP 23 Foot x-ray negative Ankle x-ray negative CT ankle no evidence of fracture or subluxation, osteoarthritis, probable synovitis and tendinosis, subcutaneous edema without organized or drainable fluid Lower extremity ultrasound negative for DVT -Continue on Keflex -Continue on Colchicine -Continue to monitor for improvement Hypertension/hyperlipidemia/dementia -BP elevated, possibly due to increased agitation. Increase Toprol-XL to 50 mg daily. Add clonidine as needed with parameters. Continue patient on Dyazide and Norvasc. -Continue on Lipitor 40 mg daily Suspected chronic kidney disease May be chronic component creatinine 1.44, suspect near baseline -s/p IV fluid hydration -Monitor renal function Diabetes HgbA1c 8.3 -Change to heart healthy diabetic diet -continue on Accu-Cheks with insulin sliding scale -consult to entry level electrician Chronic right leg/foot pain Hx of PVD -continue with PT Dysphagia -evaluated by speech therapy and placed on nectar thickened liquids. Re- evaluated by speech therapy and changed to thin liquids. Insomnia, possibly contributing to increased agitation -Started on Risperdal by neurology. Seroquel added as well. Deconditioned Impaired ADLs -continue participation with PT/OT. Jacob has submitted authorization for admission. DVT prophylaxis -Patient is on Heparin Discussed Condition With: patient, , nursing staff, Dr. Jensen Discharge Planning: Likely discharge in next 24-48 hours to [place]. Case management assisting with discharge planning.
--- NOTE | 2018-03-21 18:02 | P.DS ---
Date of admission: 03/18/18 23:01 Primary care physician: UNKNOWN Attending physician on discharge: Ami Jensen Brief History from admission: 82-year-old male with a past medical history significant for normal pressure hydrocephalus, peripheral vascular disease, hypertension, dementia and hyperlipidemia presents to the emergency department accompanied by his for the evaluation of altered mental status and a painful, swollen left foot. The patient's reports that on Wednesday the patient became increasingly agitated with confusion and insomnia. She spoke to the patient's neurologist who prescribed Seroquel 25 mg tablets. The patient reports that the pills did not help her and she increase the dose giving him up to 6 and a 24-hour period with no improvement in behavior. She also states that at approximately 9 PM last night the patient began to complain of left foot pain and would no longer bear weight on that foot. She states he has had right lower extremity weakness that also began yesterday which she noticed while trying to get him to stand with his walker. No fevers/chills. No chest pain or shortness of breath. No abdominal pain. No nausea/vomiting/diarrhea. Patient update on day of discharge: Follow-up on patient with normal pressure hydrocephalus, left ankle pain. Patient seen and examined. is at the bedside. Patient still had a difficult night last night with recurrent agitation. Patient's voices concern to leave her 's bedside. Patient's also states that he was very congested last night she could hear audible wheezing. Patient remains pleasantly confused. He does report that the pain in his feet is better. He denies any fever or chills. He denies any chest pain or shortness of breath. DS: Diagnosis - Discharge Diagnosis (1) Cellulitis of foot without toes, left Status: Acute (2) Encephalopathy Status: Acute (3) Dementia Status: Acute (4) NPH (normal pressure hydrocephalus) Status: Acute (5) Diabetes Status: Acute DS: Summary Hospital Course: Patient admitted with acute encephalopathy likely multifactorial in patient with normal pressure hydrocephalus with dementia. Head CT negative for acute process. UDS negative. Concern for cellulitis left foot with pain and swelling. Xray of the left foot and ankle unremarkable. CT ankle no evidence of fracture or subluxation, osteoarthritis, probable synovitis and tendinosis, subcutaneous edema without organized or drainable fluid. US negative for DVT. Started on Keflex with improvement. Also treated with short course of colchicine. Found to have hyperglycemia with elevated A1c of 8.3 c/w diabetes. [employer] Splitter was consulted for diabetic education. Patient was seen in consultation by Neurology who started patient on Lexapro and Namenda. Risperdal and Seroquel were added as well to help with insomnia and nighttime agitation. Patient worked with PT/OT. Patient reached the maximum benefit from his hospitalization. He was evaluated by [facility] and accepted for admission to continue with inpatient rehabilitation. - Time Spent with Patient Total time spent providing and/or coordinating discharge services: Greater than 30 minutes - Quality: VTE Deep Vein Thrombosis/Pulmonary Embolism Present on Admission: No Exam Vital signs: Vital Signs 03/20/18 20:00 03/21/18 00:00 03/21/18 01:09 Temperature 98.1 F 98.5 F Pulse Rate 82 79 Respiratory Rate 18 18 16 Blood Pressure 161/74 H 160/73 H Pulse Oximetry 94 L 95 03/21/18 04:00 03/21/18 08:00 03/21/18 11:56 Temperature 98.2 F 97.5 F L 98.1 F Pulse Rate 80 73 85 Respiratory Rate 18 18 20 Blood Pressure 158/73 H 138/65 153/70 H Pulse Oximetry 95 94 L 94 L 03/21/18 16:00 Temperature 98.3 F Pulse Rate 85 Respiratory Rate 18 Blood Pressure 180/62 H Pulse Oximetry 91 L Intake & Output 03/20/18 03/21/18 03/21/18 18:59 06:59 18:59 Intake Total 240 / 240 Output Total 200 / 200 Balance 239 / 239 -200 / -200 Weight 98.8 kg Intake: Oral 240 / 240 Output: Urine 200 / 200 Other: Date of Last Bowel Movement 03/17/18 03/20/18 # Bowel Movements 1 Narrative: GENERAL: Well-developed well-nourished elderly male patient, no acute distress. Awake and alert. Confused. Restless. is at the bedside. SKIN: Warm and dry. No generalized rash. +Lipoma right upper back. HEENT: Atraumatic. Normocephalic. EOMI. No scleral icterus. No injection or drainage. No nasal bleeding or discharge. Mucous membranes pink and moist. NECK: Trachea midline. CARDIOVASCULAR: Regular rate and rhythm. RESPIRATORY: No accessory muscle use. Poor effort. Clear to auscultation. Breath sounds equal bilaterally. No rhonchi or wheezing appreciated. GASTROINTESTINAL: Abdomen soft, non-tender, nondistended. +BS. MUSCULOSKELETAL: Extremities without clubbing or cyanosis, or edema. Left foot/ ankle edema less prominent. NTTP bilateral feet. NEUROLOGICAL: Awake and alert. Confused. Partially oriented. No obvious cranial nerve deficits. Able to move all extremities spontaneously. Nonfocal. Rambling speech. PSYCHIATRIC: Calm and cooperative. Judgment and insight are poor. Results Procedures completed during hospitalization: None Labs on day of discharge: Labs from last 24 hours 03/21/18 03/21/18 03/20/18 13:12 08:36 21:08 POC Glucose 210 H 172 H 178 H Preliminary micro results at discharge 03/18/18 22:30 Aerobic Blood Culture - Preliminary Blood - Peripheral No growth in 3 days Anaerobic Blood Culture - Preliminary No growth in 3 days 03/18/18 22:30 Aerobic Blood Culture - Preliminary Blood - Peripheral No growth in 3 days Anaerobic Blood Culture - Preliminary No growth in 3 days - Impressions ITS Impressions Foot X-Ray 03/18/18 18:18 CONCLUSION: Intact left foot. Mild hindfoot and midfoot degenerative changes. Nonspecific mild diffuse soft tissue swelling. Head CT 03/18/18 18:18 CONCLUSION: 1. No bleed or other acute intracranial abnormality. 2. Atrophy and chronic ischemic changes. . Venous Doppler Study 03/18/18 18:18 CONCLUSION: 1. No sonographic evidence for lower extremity DVT. Chest X-Ray 03/18/18 21:56 CONCLUSION: No acute cardiopulmonary disease. Ankle CT 03/19/18 00:00 CONCLUSION: 1. No fracture or subluxation of the left ankle. No destructive bone changes are demonstrated. 2. 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 3. Probable synovitis in the sinus Tarsi, nonspecific. 4. Evidence of old medial and lateral ankle sprains/avulsion fractures. No acute ligamentous abnormality demonstrated. 5. Mild peroneal tendinosis without evidence of tear. 6. Mild Achilles tendinosis. 7. Lateral predominant subcutaneous edema. No organized or drainable fluid seen. Ankle X-Ray 03/19/18 00:00 CONCLUSION: No acute bony abnormality is seen. Discharge Plan - Discharge Disposition Patient Disposition: [facility] Re[facility] Inpatient - Discharge Condition Condition: Stable - Discharge Order Discharge Orders: Discharge Order (Routine); Ordered 03/21/18 Ordered By: Kaia Camacho - Discharge Details Anticipated Discharge Date: 03/21/18 Discharge Comment: Discharge pending [place] insurance authorization - Physicians Team Primary Care Provider: UNKNOWN, Attending Provider: Ami Jensen Other Providers: Carl Stevens MD
--- NOTE | 2018-03-21 19:06 | XR ---
EXAM DATE: 03/21/2018 6:58 PM EST AGE/SEX: 82 years / Male INDICATIONS: Congestion CLINICAL DATA: This is the patient's subsequent encounter. Patient reports that signs and symptoms h ave been present for 3 days and indicates a pain score of 0/10. MEDICAL/SURGICAL HISTORY: Cardiovascular disease. . Heart valve replacement COMPARISON: [facility], CHEST 1V SINGLE AP, 03/18/2018. . FINDINGS: The heart is enlarged. The pulmonary vascularity is normal. Minimal parental changes medial basal seg ment left lower lobe. Right lung clear. No significant peribronchial thickening. No pleural effusion. The portion of the bony skeleton visualized is unremarkable. CONCLUSION: Compensated cardiomegaly with minimal airspace disease left base that has progressed in the interval. . Electronically signed by: Dickson Garcia MD 03/21/2018 7:05 PM EST
[2018-03-21] MEDS: Melatonin 5 MG Tablet PO PRN (23:18)
[2018-03-22] MEDS: Heparin - SQ 10,000 UNITS/ML Vial SQ SCH ×2 (05:29→17:21)
--- NOTE | 2018-03-22 07:52 | P.PN ---
Subjective Interval history: Patient seen and examined. Patient appears improved. His mentation is more clear. He is calmer. He denies any complaints of bilateral foot pain. He denies any fever or chills. He denies any chest pain or dyspnea. He denies any N/V or abdominal pain. Physical Exam Vital signs: Vital Signs 03/21/18 08:00 03/21/18 11:56 03/21/18 16:00 Temperature 98.7 F 98.1 F 98.3 F Pulse Rate 85 85 85 Respiratory Rate 18 20 18 Blood Pressure 130/64 153/70 H 180/62 H Pulse Oximetry 95 94 L 91 L 03/21/18 20:00 03/22/18 00:00 03/22/18 04:00 Temperature 98.8 F 98.5 F Pulse Rate 85 70 59 L Respiratory Rate 18 18 Blood Pressure 180/122 H 154/72 H 183/81 H Pulse Oximetry 90 L 93 L Intake & Output 03/21/18 03/22/18 03/22/18 18:59 06:59 18:59 Output Total 800 / 800 Balance -800 / -800 Output: Urine 800 / 800 Other: Date of Last Bowel Movement 03/20/18 03/20/18 Narrative: GENERAL: Well-developed well-nourished elderly male patient. Awake and alert. Sitting up in bedside chair. Family is at the bedside. Not in any acute distress. NECK: Trachea midline. CARDIOVASCULAR: Regular rate and rhythm. RESPIRATORY: No accessory muscle use. Fair air entry. Mild wheezing noted. Breath sounds equal bilaterally. GASTROINTESTINAL: Abdomen soft, non-tender, nondistended. +BS. MUSCULOSKELETAL: Extremities without clubbing or cyanosis, or edema. Bilateral feet benign, NTTP. NEUROLOGICAL: Awake and alert. CN II-XII grossly intact. Able to move all extremities spontaneously. Nonfocal. Normal speech. PSYCHIATRIC: Calm and cooperative. Judgment and insight are poor. Results - Labs CBC & Chem 7: 03/20/18 04:23 03/20/18 04:23 Laboratory Results - last 24 hr 03/21/18 03/21/18 03/21/18 08:36 13:12 17:57 POC Glucose 172 H 210 H 167 H 03/21/18 23:20 POC Glucose 170 H Microbiology 03/18/18 22:30 Blood - Peripheral Aerobic Blood Culture - Preliminary No growth in 3 days 03/18/18 22:30 Blood - Peripheral Anaerobic Blood Culture - Preliminary No growth in 3 days 03/18/18 22:30 Blood - Peripheral Aerobic Blood Culture - Preliminary No growth in 3 days 03/18/18 22:30 Blood - Peripheral Anaerobic Blood Culture - Preliminary No growth in 3 days - Imaging Impressions Chest X-Ray 03/21/18 00:00 CONCLUSION: Compensated cardiomegaly with minimal airspace disease left base that has progressed in the interval.. - Procedures None Assessment and Plan - Assessment (1) Cellulitis of foot without toes, left Code(s): L03.116 - Cellulitis of left lower limb Status: Acute (2) Encephalopathy Code(s): G93.40 - Encephalopathy, unspecified Status: Acute (3) Dementia Code(s): F03.90 - Unspecified dementia without behavioral disturbance Status: Acute (4) NPH (normal pressure hydrocephalus) Code(s): G91.2 - (Idiopathic) normal pressure hydrocephalus Status: Acute (5) Diabetes Code(s): E11.9 - Type 2 diabetes mellitus without complications Status: Acute - Plan 82-year-old male with a past medical history significant for normal pressure hydrocephalus, peripheral vascular disease, hypertension, dementia and hyperlipidemia presents to the emergency department accompanied by his for the evaluation of altered mental status and a painful, swollen left foot. Altered mental status/acute encephalopathy likely multifactorial in patient with normal pressure hydrocephalus with dementia. Also patient with insomnia/ poor sleep last night which may be contributing factor. Unclear etiology Head CT negative for acute process Urine drug screen negative Neurology consulted, appreciate recommendations T-max 100.0 on arrival, no obvious signs of infection. Chest x-ray negative for acute process, UA negative Concern for possible cellulitis of left foot, per patient's it was red and hot. Keflex started, continue NPH -Neurology following, appreciate assistance. Started on Namenda and Lexapro. Cleared for discharge, needs to follow-up with Dr. Casillas as outpatient. Patient's is requesting of Dr. Casillas can see patient while he is in- house. Left foot swelling/pain, improved ? Cellulitis Possible gout/pseudogout ESR 52, CRP 23 Foot x-ray negative Ankle x-ray negative CT ankle no evidence of fracture or subluxation, osteoarthritis, probable synovitis and tendinosis, subcutaneous edema without organized or drainable fluid Lower extremity ultrasound negative for DVT -Continue on Keflex -Continue on Colchicine -Continue to monitor for improvement Hypertension/hyperlipidemia/dementia -BP elevated, possibly due to increased agitation. Increase Toprol-XL to 50 mg daily. Add clonidine as needed with parameters. Continue patient on Dyazide and Norvasc. -Continue on Lipitor 40 mg daily Suspected chronic kidney disease May be chronic component creatinine 1.44, suspect near baseline -s/p IV fluid hydration -Monitor renal function Diabetes HgbA1c 8.3 Blood sugars running around mid 100s -Changed to heart healthy diabetic diet -continue on Accu-Cheks with insulin sliding scale -consult to wood fence installer Chronic right leg/foot pain Hx of PVD -continue with PT Dysphagia -evaluated by speech therapy and placed on nectar thickened liquids. Re- evaluated by speech therapy and changed to thin liquids. Insomnia, possibly contributing to increased agitation -Started on Risperdal by neurology. Seroquel added as well. Deconditioned Impaired ADLs -continue participation with PT/OT. [facility] has submitted authorization for admission - peer to peer completed today, awaiting insurance determination. Patient and family also looking at SNF facilities. DVT prophylaxis -Patient is on Heparin Discussed Condition With: patient, nursing staff, Dr. Jensen Discharge Planning: Likely discharge in next 24-48 hours to [facility]. Case management assisting with discharge planning.
[2018-03-22] MEDS: Insulin NovoLOG Aspart Correctional Sugar Inj SQ SCH ×4 (09:48→21:19)
[2018-03-22] MEDS: QUEtiapine 25 MG Tablet PO SCH (09:50)
[2018-03-22] MEDS: amLODIPine 10 MG Tablet PO SCH (09:50)
[2018-03-22] MEDS: Senna/Docusate Sodium 8.6/50 MG Tablet PO SCH ×2 (09:50→22:39)
[2018-03-22] MEDS: Escitalopram 10 MG Tablet PO SCH (09:50)
--- NOTE | 2018-03-22 19:00 | P.PNNEU ---
Subjective Subjective Comments: Asked the patient. Seen in the office history of dementia with behavioral disturbance. Having a lot of delusions, more obsessive compulsive fidgety. He has been requiring higher dose of Seroquel outpatient to help him calm down. This is also occurred in the hospital and today the states he is more calm than he has been in some time. Active Medications: Active Medications Acetaminophen (Tylenol) 650 mg PO Q4H PRN PRN Reason: Temp > 100.4 Al Hydroxide/Mg Hydroxide (Milk Of Magnesia Liq) 30 ml PO Q12H PRN PRN Reason: Mild Constipation Last Admin: 03/20/18 08:42 Dose: 30 ml Amlodipine Besylate (Norvasc) 10 mg PO DAILY [facility] Last Admin: 03/22/18 09:50 Dose: 10 mg Aspirin (Aspirin Chew) 81 mg PO DAILY [facility] Last Admin: 03/22/18 09:50 Dose: 81 mg Atorvastatin Calcium (Lipitor) 40 mg PO DAILY [facility] Last Admin: 03/22/18 09:50 Dose: 40 mg Bisacodyl (Dulcolax Supp) 10 mg RECTAL DAILY PRN PRN Reason: SEVERE CONSITIPATION Cephalexin Monohydrate (Keflex) 500 mg PO Q6HR [facility] Last Admin: 03/22/18 17:20 Dose: 500 mg Clonidine HCl (Catapres) 0.1 mg PO Q6H PRN PRN Reason: SBP>180, DBP>95 Last Admin: 03/22/18 04:52 Dose: 0.1 mg Colchicine (Colcrys) 0.6 mg PO DAILY [facility] Last Admin: 03/22/18 09:50 Dose: 0.6 mg Dextrose (D50w Vial) 50 ml IV.PUSH UNSCH PRN PRN Reason: PER HYPOGLYCEMIA PROTOCOL Escitalopram Oxalate (Lexapro) 10 mg PO DAILY [facility] Last Admin: 03/22/18 09:50 Dose: 10 mg Glucagon (Glucagon Inj) 1 mg OTHER PRN PRN PRN Reason: for Hypoglycemia Protocol Heparin Sodium (Porcine) (Heparin Inj) 5,000 units SQ Q12H [facility] Last Admin: 03/22/18 17:21 Dose: 5,000 units Insulin Aspart (Novolog Insulin Correctional Sugar Inj) 0 unit SQ ACHS [facility]; Protocol Last Admin: 03/22/18 17:21 Dose: Not Given Lactulose (Lactulose Liq) 30 ml PO DAILY PRN PRN Reason: SEVERE CONSITIPATION Melatonin (Melatonin) 5 mg PO HS PRN PRN Reason: INSOMNIA Last Admin: 03/21/18 23:18 Dose: 5 mg Memantine (Namenda) 5 mg PO DAILY [facility] Last Admin: 03/22/18 09:50 Dose: 5 mg Metoprolol Succinate (Toprol Xl) 50 mg PO DAILY [facility] Last Admin: 03/22/18 09:50 Dose: 50 mg Ondansetron HCl (Zofran Inj) 4 mg IV.PUSH Q6H PRN PRN Reason: NAUSEA OR VOMITING Last Admin: 03/19/18 09:05 Dose: 4 mg Quetiapine Fumarate (Seroquel) 25 mg PO DAILY [facility] Last Admin: 03/22/18 09:50 Dose: 25 mg Risperidone (Risperdal) 0.25 mg PO DAILY [facility] Last Admin: 03/22/18 09:50 Dose: 0.25 mg Senna/Docusate Sodium (Radha-Colace) 1 tab PO BID [facility] Last Admin: 03/22/18 09:50 Dose: 1 tab Sennosides (Senokot) 17.2 mg PO Q12H PRN PRN Reason: Moderate Constipation Sodium Chloride (Ns Flush) 2 ml IV.FLUSH PRN PRN PRN Reason: FLUSH AFTER USING IV ACCESS Last Admin: 03/18/18 21:56 Dose: 2 ml Temazepam (Restoril) 15 mg PO HS PRN PRN Reason: INSOMNIA Triamterene/HCTZ (Dyazide 37.5/25 Mg) 1 cap PO DAILY [facility] Last Admin: 03/22/18 09:59 Dose: 1 cap Allergies/Adverse Reactions: Allergies Allergy/AdvReac Type Severity Reaction Status Date / Time benazepril AdvReac Severe swelling Verified 03/18/18 22:51 of face lips captopril AdvReac Severe swelling Verified 03/18/18 22:51 of face lips enalaprilat AdvReac Severe swelling Verified 03/18/18 22:51 of face lips fosinopril AdvReac Severe swelling Verified 03/18/18 22:51 of face lips lisinopril AdvReac Severe swelling Verified 03/18/18 22:51 of face lips quinapril AdvReac Severe swelling Verified 03/18/18 22:51 of face lips Review of Systems All other systems reviewed negative except as stated in HPI Physical Exam Vital signs: Vital Signs 03/21/18 20:00 03/22/18 00:00 03/22/18 04:00 Temperature 98.8 F 98.5 F Pulse Rate 85 70 59 L Respiratory Rate 18 18 Blood Pressure 180/122 H 154/72 H 183/81 H Pulse Oximetry 90 L 93 L 03/22/18 08:00 03/22/18 09:04 03/22/18 12:00 Temperature 98.5 F 97.3 F L Pulse Rate 66 83 Respiratory Rate 16 16 Blood Pressure 121/58 L 187/82 H Pulse Oximetry 95 93 L 98 03/22/18 16:00 Temperature 97.8 F Pulse Rate 64 Respiratory Rate 16 Blood Pressure 167/71 H Pulse Oximetry 95 Intake & Output 03/21/18 03/22/18 03/22/18 18:59 06:59 18:59 Output Total 800 / 800 Balance -800 / -800 Output: Urine 800 / 800 Other: Date of Last Bowel Movement 03/20/18 03/20/18 03/20/18 Narrative: GENERAL: Well-developed well-nourished elderly male patient, no acute distress. NECK: Trachea midline. CARDIOVASCULAR: Regular rate and rhythm. RESPIRATORY: No accessory muscle use. Poor effort. Clear to auscultation. Breath sounds equal bilaterally. No rhonchi or wheezing appreciated. GASTROINTESTINAL: Abdomen soft, non-tender, nondistended. +BS. MUSCULOSKELETAL: Extremities without clubbing or cyanosis, or edema NEUROLOGICAL: Awake and alert. Sitting up in a chair, recognizes his spouse thinks he see me before appears pleasant follows moving all 70 gravity gait not assessed secondary fall risk PSYCHIATRIC: Calm and cooperative. Judgment and insight are poor. - Constitutional no acute distress - Routine HEENT Exam Head: Present: normocephalic Eye: Present: EOMI Objective Laboratory Results - last 24 hr 03/21/18 03/22/18 03/22/18 23:20 08:29 12:17 POC Glucose 170 H 168 H 143 H 03/22/18 16:35 POC Glucose 155 H Microbiology 03/18/18 22:30 Aerobic Blood Culture - Preliminary Blood - Peripheral No growth in 4 days Anaerobic Blood Culture - Preliminary No growth in 4 days 03/18/18 22:30 Aerobic Blood Culture - Preliminary Blood - Peripheral No growth in 4 days Anaerobic Blood Culture - Preliminary No growth in 4 days Review/Management - Diagnosis (1) Behavioral disorder Status: Acute Current Visit: Yes (2) Encephalopathy Code(s): G93.40 - Encephalopathy, unspecified Status: Acute Current Visit: Yes (3) Dementia Code(s): F03.90 - Unspecified dementia without behavioral disturbance Status: Acute Current Visit: Yes (4) Diabetes Code(s): E11.9 - Type 2 diabetes mellitus without complications Status: Acute Current Visit: Yes - Review/Management Plan: Fluctuating mental status. 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 Ramesh Magallon Would appreciate psychiatry evaluation and assistance He may benefit from inpatient hospitalization in the geriatric psychiatry [facility] Discussed with patient, spouse, daughter and medical
[2018-03-22] MEDS: Melatonin 5 MG Tablet PO PRN (22:39)
[2018-03-23] MEDS: Heparin - SQ 10,000 UNITS/ML Vial SQ SCH ×2 (06:06→18:18)
--- NOTE | 2018-03-23 08:55 | P.PNNEU ---
Subjective Active Medications: Active Medications Acetaminophen (Tylenol) 650 mg PO Q4H PRN PRN Reason: Temp > 100.4 Al Hydroxide/Mg Hydroxide (Milk Of Magnesia Liq) 30 ml PO Q12H PRN PRN Reason: Mild Constipation Last Admin: 03/20/18 08:42 Dose: 30 ml Amlodipine Besylate (Norvasc) 10 mg PO DAILY [facility] [place] Last Admin: 03/22/18 09:50 Dose: 10 mg Aspirin (Aspirin Chew) 81 mg PO DAILY [facility] [place] Last Admin: 03/22/18 09:50 Dose: 81 mg Atorvastatin Calcium (Lipitor) 40 mg PO DAILY [facility] [place] Last Admin: 03/22/18 09:50 Dose: 40 mg Bisacodyl (Dulcolax Supp) 10 mg RECTAL DAILY PRN PRN Reason: SEVERE CONSITIPATION Cephalexin Monohydrate (Keflex) 500 mg PO Q6HR [facility] [place] Last Admin: 03/23/18 06:06 Dose: 500 mg Clonidine HCl (Catapres) 0.1 mg PO Q6H PRN PRN Reason: SBP>180, DBP>95 Last Admin: 03/22/18 04:52 Dose: 0.1 mg Colchicine (Colcrys) 0.6 mg PO DAILY [facility] [place] Last Admin: 03/22/18 09:50 Dose: 0.6 mg Dextrose (D50w Vial) 50 ml IV.PUSH UNSCH PRN PRN Reason: PER HYPOGLYCEMIA PROTOCOL Escitalopram Oxalate (Lexapro) 10 mg PO DAILY [facility] [place] Last Admin: 03/22/18 09:50 Dose: 10 mg Glucagon (Glucagon Inj) 1 mg OTHER PRN PRN PRN Reason: for Hypoglycemia Protocol Heparin Sodium (Porcine) (Heparin Inj) 5,000 units SQ Q12H [facility] [place] Last Admin: 03/23/18 06:06 Dose: 5,000 units Insulin Aspart (Novolog Insulin Correctional Sugar Inj) 0 unit SQ ACHS [facility] [place]; Protocol Last Admin: 03/22/18 21:19 Dose: Not Given Lactulose (Lactulose Liq) 30 ml PO DAILY PRN PRN Reason: SEVERE CONSITIPATION Melatonin (Melatonin) 5 mg PO HS PRN PRN Reason: INSOMNIA Last Admin: 03/22/18 22:39 Dose: 5 mg Memantine (Namenda) 5 mg PO DAILY [facility] [place] Last Admin: 03/22/18 09:50 Dose: 5 mg Metoprolol Succinate (Toprol Xl) 50 mg PO DAILY [facility] [place] Last Admin: 03/22/18 09:50 Dose: 50 mg Ondansetron HCl (Zofran Inj) 4 mg IV.PUSH Q6H PRN PRN Reason: NAUSEA OR VOMITING Last Admin: 03/19/18 09:05 Dose: 4 mg Quetiapine Fumarate (Seroquel) 25 mg PO DAILY [facility] [place] Last Admin: 03/22/18 09:50 Dose: 25 mg Risperidone (Risperdal) 0.25 mg PO DAILY [facility] [place] Last Admin: 03/22/18 09:50 Dose: 0.25 mg Senna/Docusate Sodium (Radha-Colace) 1 tab PO BID [facility] [place] Last Admin: 03/22/18 22:39 Dose: 1 tab Sennosides (Senokot) 17.2 mg PO Q12H PRN PRN Reason: Moderate Constipation Sodium Chloride (Ns Flush) 2 ml IV.FLUSH PRN PRN PRN Reason: FLUSH AFTER USING IV ACCESS Last Admin: 03/18/18 21:56 Dose: 2 ml Temazepam (Restoril) 15 mg PO HS PRN PRN Reason: INSOMNIA Triamterene/HCTZ (Dyazide 37.5/25 Mg) 1 cap PO DAILY [facility] [place] Last Admin: 03/22/18 09:59 Dose: 1 cap Allergies/Adverse Reactions: Allergies Allergy/AdvReac Type Severity Reaction Status Date / Time benazepril AdvReac Severe swelling Verified 03/18/18 22:51 of face lips captopril AdvReac Severe swelling Verified 03/18/18 22:51 of face lips enalaprilat AdvReac Severe swelling Verified 03/18/18 22:51 of face lips fosinopril AdvReac Severe swelling Verified 03/18/18 22:51 of face lips lisinopril AdvReac Severe swelling Verified 03/18/18 22:51 of face lips quinapril AdvReac Severe swelling Verified 03/18/18 22:51 of face lips Review of Systems All other systems reviewed negative except as stated in HPI Physical Exam Vital signs: Vital Signs 03/22/18 09:04 03/22/18 12:00 03/22/18 16:00 Temperature 97.3 F L 97.8 F Pulse Rate 83 64 Respiratory Rate 16 16 Blood Pressure 187/82 H 167/71 H Pulse Oximetry 93 L 98 95 03/22/18 20:00 03/23/18 00:00 03/23/18 04:00 Temperature 97.7 F 98 F 97.4 F L Pulse Rate 63 65 60 Respiratory Rate 16 18 18 Blood Pressure 141/67 H 177/71 H 143/65 H Pulse Oximetry 93 L 65 L 97 03/23/18 08:00 Temperature 98.4 F Pulse Rate 68 Respiratory Rate Blood Pressure 148/68 H Pulse Oximetry 97 Intake & Output 03/22/18 03/23/18 03/23/18 18:59 06:59 18:59 Output Total 1000 / 1000 Balance -1000 / -1000 Weight 90.5 kg Output: Urine 1000 / 1000 Other: Date of Last Bowel Movement 03/20/18 03/22/18 Narrative: GENERAL: Well-developed well-nourished elderly male patient, no acute distress. NECK: Trachea midline. CARDIOVASCULAR: Regular rate and rhythm. RESPIRATORY: No accessory muscle use. Poor effort. Clear to auscultation. Breath sounds equal bilaterally. No rhonchi or wheezing appreciated. GASTROINTESTINAL: Abdomen soft, non-tender, nondistended. +BS. MUSCULOSKELETAL: Extremities without clubbing or cyanosis, or edema NEUROLOGICAL: Awake and alert. Oriented to self, laying in bed, looks comfortable, articulate, pleasant follows moving all 4 extremities to gravity gait not assessed secondary fall risk PSYCHIATRIC: Calm and cooperative. Judgment and insight are poor. - Constitutional no acute distress - Routine HEENT Exam Head: Present: normocephalic Eye: Present: EOMI Objective Laboratory Results - last 24 hr 03/22/18 03/22/18 03/22/18 12:17 16:35 21:18 POC Glucose 143 H 155 H 144 H 03/23/18 07:33 POC Glucose 134 H Microbiology 03/18/18 22:30 Aerobic Blood Culture - Preliminary Blood - Peripheral No growth in 4 days Anaerobic Blood Culture - Preliminary No growth in 4 days 03/18/18 22:30 Aerobic Blood Culture - Preliminary Blood - Peripheral No growth in 4 days Anaerobic Blood Culture - Preliminary No growth in 4 days Review/Management - Diagnosis (1) Behavioral disorder Status: Acute Current Visit: Yes (2) Encephalopathy Code(s): G93.40 - Encephalopathy, unspecified Status: Acute Current Visit: Yes (3) Dementia Code(s): F03.90 - Unspecified dementia without behavioral disturbance Status: Acute Current Visit: Yes (4) Diabetes Code(s): E11.9 - Type 2 diabetes mellitus without complications Status: Acute Current Visit: Yes - Review/Management Plan: Fluctuating mental status. 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 Ramesh Magallon Would appreciate psychiatry evaluation and assistance-pending He may benefit from inpatient hospitalization in the geriatric psychiatry [facility]
[2018-03-23] MEDS: Insulin NovoLOG Aspart Correctional Sugar Inj SQ SCH ×4 (08:56→21:34)
[2018-03-23] MEDS: amLODIPine 10 MG Tablet PO SCH (09:18)
[2018-03-23] MEDS: Escitalopram 10 MG Tablet PO SCH (09:19)
[2018-03-23] MEDS: QUEtiapine 25 MG Tablet PO SCH (09:19)
[2018-03-23] MEDS: Senna/Docusate Sodium 8.6/50 MG Tablet PO SCH ×2 (09:19→21:31)
--- NOTE | 2018-03-23 12:27 | XR ---
EXAM DATE: 03/23/2018 12:21 PM EST AGE/SEX: 82 years / Male INDICATIONS: Respiratory disease. CLINICAL DATA: This is the patient's subsequent encounter. Patient reports that signs and symptoms h ave been present for 4 - 6 days and indicates a pain score of 0/10. MEDICAL/SURGICAL HISTORY: None. . Aortic valve. COMPARISON: [facility] [place], CHEST 1V SINGLE AP, 03/21/2018. . FINDINGS: A single AP view of the chest demonstrates the lungs to be symmetrically aerated without evidence of mass, infiltrate or effusion. The cardiomediastinal contours are unremarkable. Osseous structures a re intact. CONCLUSION: No acute disease Electronically signed by: Francis Guillen MD 03/23/2018 12:25 PM EST
--- NOTE | 2018-03-23 12:34 | P.PN ---
Subjective Interval history: Follow up on patient with NPH, dementia. Patient seen and examined. Patient complaining of non productive cough and chest congestion. Patient denies any fever or chills. He denies any chest pain or dyspnea. He reports good BM. He denies any dysuria. Physical Exam Vital signs: Vital Signs 03/22/18 16:00 03/22/18 20:00 03/23/18 00:00 Temperature 97.8 F 97.7 F 98 F Pulse Rate 64 63 65 Respiratory Rate 16 16 18 Blood Pressure 167/71 H 141/67 H 177/71 H Pulse Oximetry 95 93 L 65 L 03/23/18 04:00 03/23/18 08:00 Temperature 97.4 F L 98.4 F Pulse Rate 60 68 Respiratory Rate 18 Blood Pressure 143/65 H 148/68 H Pulse Oximetry 97 97 Intake & Output 03/22/18 03/23/18 03/23/18 18:59 06:59 18:59 Output Total 1000 / 1000 Balance -1000 / -1000 Weight 90.5 kg Output: Urine 1000 / 1000 Other: Date of Last Bowel Movement 03/20/18 03/22/18 03/22/18 Narrative: GENERAL: Well-developed well-nourished elderly male patient, no acute distress. Awake and alert. Sitting up in bedside chair. Family is at the bedside. NECK: Trachea midline. CARDIOVASCULAR: Regular rate and rhythm. RESPIRATORY: No accessory muscle use. Fair air entry. Mild wheezing noted. Breath sounds equal bilaterally. GASTROINTESTINAL: Abdomen soft, non-tender, nondistended. +BS. MUSCULOSKELETAL: Extremities without clubbing or cyanosis, or edema NEUROLOGICAL: Awake and alert. CN II-XII grossly intact. Able to move all extremities spontaneously. Nonfocal. Normal speech. PSYCHIATRIC: Calm and cooperative. Judgment and insight are poor. Results - Labs CBC & Chem 7: 03/20/18 04:23 03/20/18 04:23 Laboratory Results - last 24 hr 03/22/18 03/22/18 03/22/18 12:17 16:35 21:18 POC Glucose 143 H 155 H 144 H 03/23/18 07:33 POC Glucose 134 H Microbiology 03/18/18 22:30 Blood - Peripheral Aerobic Blood Culture - Final No growth in 5 days 03/18/18 22:30 Blood - Peripheral Anaerobic Blood Culture - Final No growth in 5 days 03/18/18 22:30 Blood - Peripheral Aerobic Blood Culture - Final No growth in 5 days 03/18/18 22:30 Blood - Peripheral Anaerobic Blood Culture - Final No growth in 5 days - Procedures None Assessment and Plan - Assessment (1) Cellulitis of foot without toes, left Code(s): L03.116 - Cellulitis of left lower limb Status: Acute (2) Encephalopathy Code(s): G93.40 - Encephalopathy, unspecified Status: Acute (3) Dementia Code(s): F03.90 - Unspecified dementia without behavioral disturbance Status: Acute (4) NPH (normal pressure hydrocephalus) Code(s): G91.2 - (Idiopathic) normal pressure hydrocephalus Status: Acute (5) Diabetes Code(s): E11.9 - Type 2 diabetes mellitus without complications Status: Acute - Plan 82-year-old male with a past medical history significant for normal pressure hydrocephalus, peripheral vascular disease, hypertension, dementia and hyperlipidemia presents to the emergency department accompanied by his for the evaluation of altered mental status and a painful, swollen left foot. Altered mental status/acute encephalopathy likely multifactorial in patient with normal pressure hydrocephalus with dementia. Also patient with insomnia/poor sleep last night which may be contributing factor. Head CT negative for acute process Urine drug screen negative Neurology consulted, appreciate recommendations. Started on low dose Seroquel, Namenda and Risperdal. Also started on Lexapro. Has requested patient be seen by Psychiatry and feels may benefit from inpatient hospitalization in the geriatric psychiatry [facility] NPH -Neurology following as above, appreciate assistance. -Patient evaluated at [place] for possible DATA DESIGNER shunt but not felt to be likely effective Left foot swelling/pain, improved ? Cellulitis Possible gout/pseudogout ESR 52, CRP 23 Foot x-ray negative Ankle x-ray negative CT ankle no evidence of fracture or subluxation, osteoarthritis, probable synovitis and tendinosis, subcutaneous edema without organized or drainable fluid Lower extremity ultrasound negative for DVT Treated with Colchicine -Continue on Keflex -Continue to monitor for improvement Cough, chest congestion -start on scheduled Duonebs and Mucinex -obtain CXR -IS and acapella -monitor respiratory status Hypertension/hyperlipidemia/dementia -BP elevated, possibly due to increased agitation. -Continue on increased dose of Toprol-XL 50 mg daily. Continue patient on Dyazide and Norvasc. -Add Hydralazine 25mg BID. -clonidine as needed with parameters. -Continue on Lipitor 40 mg daily Suspected chronic kidney disease May be chronic component creatinine 1.44, suspect near baseline -s/p IV fluid hydration -Monitor renal function as indicated Diabetes HgbA1c 8.3 -Changed to heart healthy diabetic diet -continue on Accu-Cheks with insulin sliding scale -consult to aco coordinator Chronic right leg/foot pain Hx of PVD -continue with PT Dysphagia -evaluated by speech therapy and placed on nectar thickened liquids. Re- evaluated by speech therapy and changed to thin liquids. Insomnia, possibly contributing to increased agitation -Started on Risperdal by neurology. Seroquel added as well. Deconditioned Impaired ADLs -continue participation with PT/OT. Jacob submitted authorization for admission but was declined by insurance. Family looking at SNF facilities. CM assisting with discharge planning. DVT prophylaxis -Patient is on Heparin Discussed Condition With: patient, nursing staff, Dr. Hicks, family at bedside Discharge Planning: Likely discharge in next 24-48 hours to SNF or possibly inpatient psych pending psych evaluation. Case management assisting with discharge planning.
[2018-03-23] MEDS: guaiFENesin 600 MG ER Tablet PO SCH ×2 (12:57→21:31)
[2018-03-23] MEDS: hydrALAZINE 25 MG Tablet PO SCH ×2 (12:57→21:31)
--- NOTE | 2018-03-23 16:59 | P.DIET ---
Nutritional Evaluation Screening comments: MDC for Diet Education Acknowledged. Pt with fluctuating mental status and is not appropriate for diet teaching at this time. D/C plan indicates he will d/c to a SNF after Psych Eval. RD will remain available if pt's family will be caring for him and need instruction. Family may also need visit from the Piano Technician. RD monitoring.
[2018-03-23] MEDS: Melatonin 5 MG Tablet PO PRN (21:30)
[2018-03-23] MEDS: Acetaminophen 325 MG Tablet PO PRN (21:31)
[2018-03-24] MEDS: Heparin - SQ 10,000 UNITS/ML Vial SQ SCH ×2 (05:29→18:08)
[2018-03-24] MEDS: Insulin NovoLOG Aspart Correctional Sugar Inj SQ SCH ×4 (08:53→21:12)
[2018-03-24] MEDS: hydrALAZINE 25 MG Tablet PO SCH ×2 (09:41→21:11)
[2018-03-24] MEDS: Escitalopram 10 MG Tablet PO SCH (09:41)
[2018-03-24] MEDS: guaiFENesin 600 MG ER Tablet PO SCH ×2 (09:42→21:12)
[2018-03-24] MEDS: QUEtiapine 25 MG Tablet PO SCH (09:43)
[2018-03-24] MEDS: amLODIPine 10 MG Tablet PO SCH (09:44)
[2018-03-24] MEDS: Senna/Docusate Sodium 8.6/50 MG Tablet PO SCH ×2 (09:44→21:12)
--- NOTE | 2018-03-24 15:13 | P.CONPSY ---
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 Altered mental status/acute encephalopathy likely multifactorial in patient with normal pressure hydrocephalus with dementia. Also patient with insomnia/poor sleep last night which may be contributing factor. Head CT negative for acute process. Consulted to psychiatry to address mental status and potential need of admission in inpatient psychiatry. On my psychiatric evaluation I find a patient that is accompanied by his and younger daughter. The patient is calm, cooperative, with a very good sense of humor and very pleasant. He reports that he feels much better, he says that he has been quite confused and disorganized recently. He reports to be in a good mood, denies anhedonia, denies hopelessness, denies helplessness, denies worthlessness, denies problems with appetite, with a sleep and energy at the moment. He denies suicidal and homicidal ideation, he denies visual and auditory hallucinations. The patient at times become tangential, disorganized but he is redirectable, he is partially oriented in time and place, he knows he is in February, but he thinks that we are in 1981. He knows that the vice president of news is Ejobinna Griffith. He is able to recognize his and daughter. Able to repeat 3 words, but unable to remember 3 minutes. No prominent paranoia, no agitation, no aggressive behavior present. But, as per and daughter, the patient was in his usual state of mind of the March 11 when we start having visual hallucinations, became disorganized, paranoid and fixated in TV lights. They say that he was a person highly functional until about a year ago when he was driving his car, went to [facility] and could not find the way back home and since then he could not drive anymore and he was diagnosed with a dementia. However, in the last year even though he has been diagnosed with dementia, he has been able to take showers by himself, to eat by herself, to have pleasant conversation with his family, but since March 11 he has apparently decompensated. He was medicated with Seroquel 25 mg twice daily that was increased to 4 times a day with a poor response. Since he was admitted in the hospital once he was started in the Risperdal Lexapro and his swollen leg was treated he is doing much better and he is very close to baseline. 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 , diagnosed about a year ago, no previous psychiatric admissions, no previous suicide attempts, with a abrupt mental decompensation last March 11, since then he has been on Seroquel 25 mg twice daily, Risperdal 0.25 mg twice daily, Lexapro 10 mg PMHx: with a past medical history significant for normal pressure hydrocephalus , peripheral vascular disease, hypertension, dementia and hyperlipidemia Substance Hx: Denies the use of illegal drugs or alcohol Family Hx: No Family psychiatric history Social Hx: The patient was born and raised in [facility], he is , lives in [place] with his , father of 3 kids, he used to be a tax officer, highest level of education is college Review of Systems All other systems reviewed negative except as stated in HPI Psychiatric: Reports confusion, Reports memory loss PMFSH - History History Provided By: Patient, Family Member - Medical History Medical History: Medical History (Last Reviewed 03/24/18 @ 09:06 by Josselin Parra) Dementia Hyperlipidemia Hypertension Normal pressure hydrocephalus Peripheral vascular disease - Surgical History Surgical History: Surgical History (Last Reviewed 03/24/18 @ 09:06 by Josselin Parra) Status post transcatheter aortic valve replacement - Tobacco History Second Hand Smoke Exposure: Yes (coworkers and family, relatives) Smoking Status: Never smoker - Alcohol History How Often Do You Have a Drink Containing Alcohol: Never - Substance Use History Substance History: No History of Abuse - Travel History Recent Travel in the [facility] Within the Last 8 Weeks: No Recent Travel Out of the Country Within the Last 8 Weeks: No - Immunization History Tetanus Immunization: Unsure Hx Influenza Vaccine This Season: Yes Medications and Allergies Active Medications: Active Medications Acetaminophen (Tylenol) 650 mg PO Q4H PRN PRN Reason: Temp > 100.4 Last Admin: 03/23/18 21:31 Dose: 650 mg Al Hydroxide/Mg Hydroxide (Milk Of Ellen Liq) 30 ml PO Q12H PRN PRN Reason: Mild Constipation Last Admin: 03/20/18 08:42 Dose: 30 ml Albuterol (Duoneb Neb ([facility])) 1 ampul NEB Q6HR WHILE AWAKE NEB [facility] Last Admin: 03/24/18 13:06 Dose: 1 ampul Amlodipine Besylate (Norvasc) 10 mg PO DAILY [facility] Last Admin: 03/24/18 09:44 Dose: 10 mg Aspirin (Aspirin Chew) 81 mg PO DAILY [facility] Last Admin: 03/24/18 09:44 Dose: 81 mg Atorvastatin Calcium (Lipitor) 40 mg PO DAILY [facility] Last Admin: 03/24/18 09:42 Dose: 40 mg Bisacodyl (Dulcolax Supp) 10 mg RECTAL DAILY PRN PRN Reason: SEVERE CONSITIPATION Cephalexin Monohydrate (Keflex) 500 mg PO Q6HR [facility] Last Admin: 03/24/18 13:55 Dose: 500 mg Clonidine HCl (Catapres) 0.1 mg PO Q6H PRN PRN Reason: SBP>180, DBP>95 Last Admin: 03/22/18 04:52 Dose: 0.1 mg Dextrose (D50w Vial) 50 ml IV.PUSH UNSCH PRN PRN Reason: PER HYPOGLYCEMIA PROTOCOL Escitalopram Oxalate (Lexapro) 10 mg PO DAILY [facility] Last Admin: 03/24/18 09:41 Dose: 10 mg Glucagon (Glucagon Inj) 1 mg OTHER PRN PRN PRN Reason: for Hypoglycemia Protocol Guaifenesin (Mucinex Er) 600 mg PO BID [facility] Last Admin: 03/24/18 09:42 Dose: 600 mg Heparin Sodium (Porcine) (Heparin Inj) 5,000 units SQ Q12H [facility] Last Admin: 03/24/18 05:29 Dose: 5,000 units Hydralazine HCl (Apresoline) 25 mg PO BID [facility] Last Admin: 03/24/18 09:41 Dose: 25 mg Insulin Aspart (Novolog Insulin Correctional Sugar Inj) 0 unit SQ ACHS [facility]; Protocol Last Admin: 03/24/18 13:55 Dose: 1 unit Lactulose (Lactulose Liq) 30 ml PO DAILY PRN PRN Reason: SEVERE CONSITIPATION Melatonin (Melatonin) 5 mg PO HS PRN PRN Reason: INSOMNIA Last Admin: 03/23/18 21:30 Dose: 5 mg Memantine (Namenda) 5 mg PO DAILY [facility] Last Admin: 03/24/18 09:41 Dose: 5 mg Metoprolol Succinate (Toprol Xl) 50 mg PO DAILY [facility] Last Admin: 03/24/18 09:43 Dose: 50 mg Ondansetron HCl (Zofran Inj) 4 mg IV.PUSH Q6H PRN PRN Reason: NAUSEA OR VOMITING Last Admin: 03/19/18 09:05 Dose: 4 mg Quetiapine Fumarate (Seroquel) 25 mg PO DAILY [facility] Last Admin: 03/24/18 09:43 Dose: 25 mg Risperidone (Risperdal) 0.25 mg PO DAILY [facility] Last Admin: 03/24/18 09:43 Dose: 0.25 mg Senna/Docusate Sodium (Radha-Colace) 1 tab PO BID [facility] Last Admin: 03/24/18 09:44 Dose: Not Given Sennosides (Senokot) 17.2 mg PO Q12H PRN PRN Reason: Moderate Constipation Sodium Chloride (Ns Flush) 2 ml IV.FLUSH PRN PRN PRN Reason: FLUSH AFTER USING IV ACCESS Last Admin: 03/18/18 21:56 Dose: 2 ml Temazepam (Restoril) 15 mg PO HS PRN PRN Reason: INSOMNIA Triamterene/HCTZ (Dyazide 37.5/25 Mg) 1 cap PO DAILY [facility] Last Admin: 03/24/18 09:44 Dose: 1 cap Allergies Allergy/AdvReac Type Severity Reaction Status Date / Time benazepril AdvReac Severe swelling Verified 03/18/18 22:51 of face lips captopril AdvReac Severe swelling Verified 03/18/18 22:51 of face lips enalaprilat AdvReac Severe swelling Verified 03/18/18 22:51 of face lips fosinopril AdvReac Severe swelling Verified 03/18/18 22:51 of face lips lisinopril AdvReac Severe swelling Verified 03/18/18 22:51 of face lips quinapril AdvReac Severe swelling Verified 03/18/18 22:51 of face lips Home Medications Medication Instructions Recorded Confirmed Type amlodipine [Norvasc] 10 mg PO DAILY 03/18/18 03/18/18 History aspirin [Aspirin Childrens] 81 mg PO DAILY 03/18/18 03/18/18 History atorvastatin [Lipitor] 40 mg PO DAILY 03/18/18 03/18/18 History metoprolol succinate [Toprol XL] 25 mg PO DAILY 03/18/18 03/18/18 History triamterene-hydrochlorothiazid 1 cap PO DAILY 03/18/18 03/18/18 History cyanocobalamin (vitamin B-12) 1 cap PO DAILY 03/19/18 03/19/18 History [Vitamin B-12] Exam Vital signs: Vital Signs 03/23/18 19:44 03/23/18 20:00 03/24/18 00:00 Temperature 98.4 F 99.1 F Pulse Rate 73 67 59 L Respiratory Rate 24 18 18 Blood Pressure 151/68 H 157/70 H Pulse Oximetry 93 L 94 L 03/24/18 04:00 03/24/18 07:55 03/24/18 08:00 Temperature 98.7 F 97.2 F L Pulse Rate 61 58 L 55 L Respiratory Rate 18 20 Blood Pressure 193/84 H 176/82 H Pulse Oximetry 93 L 100 03/24/18 12:00 03/24/18 13:11 Temperature 98.5 F Pulse Rate 84 65 Respiratory Rate 20 16 Blood Pressure 116/67 Pulse Oximetry 96 Intake & Output 03/23/18 03/24/18 03/24/18 18:59 06:59 18:59 Intake Total 1000 / 1000 Output Total 653 / 653 Balance 1000 / 1000 -653 / -653 Weight 88.3 kg Intake: Oral 1000 / 1000 Output: Urine 653 / 653 Other: # Voids 3 Date of Last Bowel Movement 03/22/18 03/22/18 # Bowel Movements 2 Narrative: No tremors, no EPS, no psychomotor agitation or retardation, no catatonia - Constitutional no acute distress - Routine HEENT Exam Head: Present: normocephalic Eye: Present: EOMI, PERRL ENT: Present: mucous membranes moist Mental Status Examination Appearance: Appropriate Consciousness: Alert Orientation: Person, Place Motor Activity: Normal gait Speech: Unremarkable Language: Adequate Fund of Knowledge: Adequate Attention and Concentration: Adequate Memory: Impaired Mood: Appropriate Affect: Appropriate Thought Process & Associations: Loose associations Thought Content: Appropriate Hallucination Type: None Delusion Type: None Suicidal Ideation: No Suicidal Plan: No Suicidal Intention: No Homicidal Ideation: No Homicidal Plan: No Homicidal Intention: No Insight: Adequate Judgment: Adequate Assessment and Plan - Assessment (1) Dementia Code(s): F03.90 - Unspecified dementia without behavioral disturbance Status: Acute - Plan Plan: At the moment of the psychiatric evaluation I find a patient that is calm, cooperative, very pleasant and with a very good sense of humor. The patient does present very clear signs of dementia such as disorientation, the patient is just partially oriented in place and time, impairment in recent and immediate recall, executive function deficits, impairment in abstraction, which is very consistent with his diagnosis of neurocognitive disorder related with normal pressure hydrocephalus. At the moment of my evaluation the patient reports good mood, denies anxiety, denies anhedonia, denies hopelessness, helplessness, denies suicidal and homicidal ideation, denies visual and auditory hallucinations. The patient does not have any prominent attention deficit, fluctuation of consciousness, agitation, paranoia and perceptual disturbances at this moment. He does not meet criteria for involuntary psychiatric admission at this moment. It seems to me that the patient described by the family: Abrupt onset of visual hallucinations, paranoia, agitation, disorganization was most probably related with delirium superimposed to dementia secondary to medical conditions. Patient can continue Seroquel 25 mg twice daily for behavioral control and to prevent delirium. Risperdal 0.25 twice daily can be discontinued. Also can continue Lexapro 10 mg daily. Patient also can benefit of medication to his lower the progression of dementia process: Namenda 5 mg with Aricept 5 mg daily. Extensive support, motivation and psychoeducation. Consult appreciated. Justification for Continued Inpatient Stay: No admission indicated.
--- NOTE | 2018-03-24 16:14 | P.PN ---
Subjective Interval history: Follow up on patient with NPH, dementia. Patient seen and examined. Pt. sitting up in chair, awake, oriented to place, not sure of year, notes with the president is. Following commands. Pleasant and cooperative at this time. BP elevated to 190s overnight, better today. and daughters at bedside. Minimal cough, no wheezing. Per at bedside, wheezing has improved since last night. They are currently meeting with Wilmanol[facility]ia and are planning for future assistance at home, at this time she would like patient to go to SNF facility. Physical Exam Vital signs: Vital Signs 03/23/18 19:44 03/23/18 20:00 03/24/18 00:00 Temperature 98.4 F 99.1 F Pulse Rate 73 67 59 L Respiratory Rate 24 18 18 Blood Pressure 151/68 H 157/70 H Pulse Oximetry 93 L 94 L 03/24/18 04:00 03/24/18 07:55 03/24/18 08:00 Temperature 98.7 F 97.2 F L Pulse Rate 61 58 L 55 L Respiratory Rate 18 20 Blood Pressure 193/84 H 176/82 H Pulse Oximetry 93 L 100 03/24/18 12:00 03/24/18 13:11 Temperature 98.5 F Pulse Rate 84 65 Respiratory Rate 20 16 Blood Pressure 116/67 Pulse Oximetry 96 Intake & Output 03/23/18 03/24/18 03/24/18 18:59 06:59 18:59 Intake Total 1000 / 1000 Output Total 653 / 653 Balance 1000 / 1000 -653 / -653 Weight 88.3 kg Intake: Oral 1000 / 1000 Output: Urine 653 / 653 Other: # Voids 3 Date of Last Bowel Movement 03/22/18 03/22/18 # Bowel Movements 2 Narrative: GENERAL: Well-developed well-nourished elderly male patient, no acute distress. Sitting up in chair. NECK: Trachea midline. CARDIOVASCULAR: Regular rate and rhythm. RESPIRATORY: No accessory muscle use. Fair air entry. Breath sounds equal bilateral, no wheezing noted. GASTROINTESTINAL: Abdomen soft, non-tender, nondistended. +BS. MUSCULOSKELETAL: Extremities without clubbing or cyanosis, or edema NEUROLOGICAL: Awake, alert oriented x2. No focal deficits. Following commands , speech is clear PSYCHIATRIC: Calm and cooperative. Judgment and insight are poor. Results - Labs CBC & Chem 7: 03/20/18 04:23 03/20/18 04:23 Laboratory Results - last 24 hr 03/23/18 03/23/18 03/24/18 17:26 20:19 07:57 POC Glucose 123 H 154 H 127 H 03/24/18 12:35 POC Glucose 158 H - Procedures None Assessment and Plan - Assessment (1) Cellulitis of foot without toes, left Code(s): L03.116 - Cellulitis of left lower limb Status: Acute (2) Encephalopathy Code(s): G93.40 - Encephalopathy, unspecified Status: Acute (3) Dementia Code(s): F03.90 - Unspecified dementia without behavioral disturbance Status: Acute (4) NPH (normal pressure hydrocephalus) Code(s): G91.2 - (Idiopathic) normal pressure hydrocephalus Status: Acute (5) Diabetes Code(s): E11.9 - Type 2 diabetes mellitus without complications Status: Acute - Plan 82-year-old male with a past medical history significant for normal pressure hydrocephalus, peripheral vascular disease, hypertension, dementia and hyperlipidemia presents to the emergency department accompanied by his for the evaluation of altered mental status and a painful, swollen left foot. Altered mental status/acute encephalopathy likely multifactorial in patient with normal pressure hydrocephalus with dementia. Also patient with insomnia/poor sleep last night which may be contributing factor. Head CT negative for acute process Urine drug screen negative Neurology consulted, appreciate recommendations. Started on low dose Seroquel, Namenda and Risperdal. Also started on Lexapro. Has requested patient be seen by Psychiatry and feels may benefit from inpatient hospitalization in the geriatric psychiatry [facility] Psychiatry evaluated today, they believe delirium superimposed on dementia. Recommend to continue Seroquel, Lexapro. Recommends that Risperdal can be discontinued. Agrees with Namenda and also adding Aricept. Patient does not meet criteria for inpatient psychiatric admission. NPH -Neurology following as above, appreciate assistance. -Patient evaluated at [place] for possible [employer] shunt but not felt to be likely effective Left foot swelling/pain, improved ? Cellulitis Possible gout/pseudogout ESR 52, CRP 23 Foot x-ray negative Ankle x-ray negative CT ankle no evidence of fracture or subluxation, osteoarthritis, probable synovitis and tendinosis, subcutaneous edema without organized or drainable fluid Lower extremity ultrasound negative for DVT Treated with Colchicine -Continue on Keflex until tomorrow -Continue to monitor for improvement Cough, chest congestion Sx improved today -Continue with scheduled Duonebs and Mucinex -CXR reviewed, no acute findings. -IS and acapella -monitor respiratory status Hypertension/hyperlipidemia/dementia -BP elevated, possibly due to increased agitation. -Continue on increased dose of Toprol-XL 50 mg daily. Continue patient on Dyazide and Norvasc. -Continue with Hydralazine 25mg BID. -clonidine as needed with parameters. -Continue on Lipitor 40 mg daily Suspected chronic kidney disease May be chronic component creatinine 1.44, suspect near baseline -s/p IV fluid hydration -Monitor renal function as indicated Diabetes HgbA1c 8.3 -Changed to heart healthy diabetic diet -continue on Accu-Cheks with insulin sliding scale -consult to trailers and motor homes salesperson Chronic right leg/foot pain Hx of PVD -continue with PT Dysphagia -evaluated by speech therapy and placed on nectar thickened liquids. Re- evaluated by speech therapy and changed to thin liquids. Insomnia, possibly contributing to increased agitation -Started on Risperdal by neurology. Seroquel added as well. Deconditioned Impaired ADLs -continue participation with PT/OT. Jacob submitted authorization for admission but was declined by insurance. Family looking at SNF facilities. CM assisting with discharge planning. DVT prophylaxis -Patient is on Heparin Hopefully discharge in the next 1-2 days to SNF. Code Status: Full code Discussed Condition With: RN, pt and pt's , CM Discharge Planning: Poss SNF when cleared by neurology Family also sought services from Heather who met with pt in hospital.
--- NOTE | 2018-03-24 19:37 | P.PNNEU ---
Subjective Subjective Comments: no acute events; no cp,mood stable. seen by psych Active Medications: Active Medications Acetaminophen (Tylenol) 650 mg PO Q4H PRN PRN Reason: Temp > 100.4 Last Admin: 03/23/18 21:31 Dose: 650 mg Al Hydroxide/Mg Hydroxide (Milk Of Magndelilah Liq) 30 ml PO Q12H PRN PRN Reason: Mild Constipation Last Admin: 03/20/18 08:42 Dose: 30 ml Albuterol (Duoneb Neb ([facility])) 1 ampul NEB Q6HR WHILE AWAKE NEB [facility] Last Admin: 03/24/18 13:06 Dose: 1 ampul Amlodipine Besylate (Norvasc) 10 mg PO DAILY [facility] Last Admin: 03/24/18 09:44 Dose: 10 mg Aspirin (Aspirin Chew) 81 mg PO DAILY [facility] Last Admin: 03/24/18 09:44 Dose: 81 mg Atorvastatin Calcium (Lipitor) 40 mg PO DAILY [facility] Last Admin: 03/24/18 09:42 Dose: 40 mg Bisacodyl (Dulcolax Supp) 10 mg RECTAL DAILY PRN PRN Reason: SEVERE CONSITIPATION Cephalexin Monohydrate (Keflex) 500 mg PO Q6HR [facility] Last Admin: 03/24/18 18:09 Dose: 500 mg Clonidine HCl (Catapres) 0.1 mg PO Q6H PRN PRN Reason: SBP>180, DBP>95 Last Admin: 03/22/18 04:52 Dose: 0.1 mg Dextrose (D50w Vial) 50 ml IV.PUSH UNSCH PRN PRN Reason: PER HYPOGLYCEMIA PROTOCOL Escitalopram Oxalate (Lexapro) 10 mg PO DAILY [facility] Last Admin: 03/24/18 09:41 Dose: 10 mg Glucagon (Glucagon Inj) 1 mg OTHER PRN PRN PRN Reason: for Hypoglycemia Protocol Guaifenesin (Mucinex Er) 600 mg PO BID [facility] Last Admin: 03/24/18 09:42 Dose: 600 mg Heparin Sodium (Porcine) (Heparin Inj) 5,000 units SQ Q12H [facility] Last Admin: 03/24/18 18:08 Dose: 5,000 units Hydralazine HCl (Apresoline) 25 mg PO BID [facility] Last Admin: 03/24/18 09:41 Dose: 25 mg Insulin Aspart (Novolog Insulin Correctional Sugar Inj) 0 unit SQ ACHS [facility]; Protocol Last Admin: 03/24/18 18:08 Dose: 1 unit Lactulose (Lactulose Liq) 30 ml PO DAILY PRN PRN Reason: SEVERE CONSITIPATION Melatonin (Melatonin) 5 mg PO HS PRN PRN Reason: INSOMNIA Last Admin: 03/23/18 21:30 Dose: 5 mg Memantine (Namenda) 5 mg PO DAILY [facility] Last Admin: 03/24/18 09:41 Dose: 5 mg Metoprolol Succinate (Toprol Xl) 50 mg PO DAILY [facility] Last Admin: 03/24/18 09:43 Dose: 50 mg Ondansetron HCl (Zofran Inj) 4 mg IV.PUSH Q6H PRN PRN Reason: NAUSEA OR VOMITING Last Admin: 03/19/18 09:05 Dose: 4 mg Quetiapine Fumarate (Seroquel) 25 mg PO DAILY [facility] Last Admin: 03/24/18 09:43 Dose: 25 mg Risperidone (Risperdal) 0.25 mg PO DAILY [facility] Last Admin: 03/24/18 09:43 Dose: 0.25 mg Senna/Docusate Sodium (Radha-Colace) 1 tab PO BID [facility] Last Admin: 03/24/18 09:44 Dose: Not Given Sennosides (Senokot) 17.2 mg PO Q12H PRN PRN Reason: Moderate Constipation Sodium Chloride (Ns Flush) 2 ml IV.FLUSH PRN PRN PRN Reason: FLUSH AFTER USING IV ACCESS Last Admin: 03/18/18 21:56 Dose: 2 ml Temazepam (Restoril) 15 mg PO HS PRN PRN Reason: INSOMNIA Triamterene/HCTZ (Dyazide 37.5/25 Mg) 1 cap PO DAILY [facility] Last Admin: 03/24/18 09:44 Dose: 1 cap Allergies/Adverse Reactions: Allergies Allergy/AdvReac Type Severity Reaction Status Date / Time benazepril AdvReac Severe swelling Verified 03/18/18 22:51 of face lips captopril AdvReac Severe swelling Verified 03/18/18 22:51 of face lips enalaprilat AdvReac Severe swelling Verified 03/18/18 22:51 of face lips fosinopril AdvReac Severe swelling Verified 03/18/18 22:51 of face lips lisinopril AdvReac Severe swelling Verified 03/18/18 22:51 of face lips quinapril AdvReac Severe swelling Verified 03/18/18 22:51 of face lips Review of Systems All other systems reviewed negative except as stated in HPI Physical Exam Vital signs: Vital Signs 03/23/18 19:44 03/23/18 20:00 03/24/18 00:00 Temperature 98.4 F 99.1 F Pulse Rate 73 67 59 L Respiratory Rate 24 18 18 Blood Pressure 151/68 H 157/70 H Pulse Oximetry 93 L 94 L 03/24/18 04:00 03/24/18 07:55 03/24/18 08:00 Temperature 98.7 F 97.2 F L Pulse Rate 61 58 L 55 L Respiratory Rate 18 20 Blood Pressure 193/84 H 176/82 H Pulse Oximetry 93 L 100 03/24/18 12:00 03/24/18 13:11 03/24/18 16:00 Temperature 98.5 F 97.4 F L Pulse Rate 84 65 70 Respiratory Rate 20 16 20 Blood Pressure 116/67 176/81 H Pulse Oximetry 96 96 Intake & Output 03/24/18 03/24/18 03/25/18 06:59 18:59 06:59 Output Total 653 / 653 4 / 4 Balance -653 / -653 -4 / -4 Weight 88.3 kg Output: Urine 653 / 653 4 / 4 Other: # Voids 3 Date of Last Bowel Movement 03/22/18 03/22/18 Narrative: GENERAL: Well-developed well-nourished elderly male patient, no acute distress. NECK: Trachea midline. CARDIOVASCULAR: Regular rate and rhythm. RESPIRATORY: No accessory muscle use. getting breathing tx GASTROINTESTINAL: Abdomen soft, non-tender, nondistended. +BS. MUSCULOSKELETAL: Extremities without clubbing or cyanosis, or edema NEUROLOGICAL: Awake and alert. ox 1-2, recognizes me, getting breathing tx. pleasant, follows, gait not assessed secondary fall risk PSYCHIATRIC: Calm and cooperative. - Constitutional no acute distress - Routine HEENT Exam Head: Present: normocephalic Eye: Present: EOMI Objective Laboratory Results - last 24 hr 03/23/18 03/24/18 03/24/18 20:19 07:57 12:35 POC Glucose 154 H 127 H 158 H 03/24/18 17:03 POC Glucose 161 H Review/Management - Diagnosis (1) Behavioral disorder Status: Acute Current Visit: Yes (2) Encephalopathy Code(s): G93.40 - Encephalopathy, unspecified Status: Acute Current Visit: Yes (3) Dementia Code(s): F03.90 - Unspecified dementia without behavioral disturbance Status: Acute Current Visit: Yes (4) Diabetes Code(s): E11.9 - Type 2 diabetes mellitus without complications Status: Acute Current Visit: Yes - Review/Management Plan: Fluctuating mental status. Moderate dementia suspect of Alzheimer's type he also may have Lewy body component based on the recent delusions and almost visual hallucinations and at times sensitivity to neuroleptic agents On low-dose Namenda, low-dose Seroquel, Lexapro Recommendations doing well namenda 10mg bid seen by psych d/c planning
[2018-03-24] MEDS: Melatonin 5 MG Tablet PO PRN (21:12)
[2018-03-25] MEDS: Heparin - SQ 10,000 UNITS/ML Vial SQ SCH ×2 (05:46→18:12)
[2018-03-25] MEDS: guaiFENesin 600 MG ER Tablet PO SCH ×2 (08:13→21:09)
[2018-03-25] MEDS: QUEtiapine 25 MG Tablet PO SCH (08:13)
[2018-03-25] MEDS: Senna/Docusate Sodium 8.6/50 MG Tablet PO SCH ×2 (08:14→21:09)
[2018-03-25] MEDS: hydrALAZINE 25 MG Tablet PO SCH ×2 (08:14→21:09)
[2018-03-25] MEDS: Escitalopram 10 MG Tablet PO SCH (08:14)
[2018-03-25] MEDS: amLODIPine 10 MG Tablet PO SCH (08:14)
[2018-03-25] MEDS: Insulin NovoLOG Aspart Correctional Sugar Inj SQ SCH ×4 (08:15→21:00)
--- NOTE | 2018-03-25 08:36 | P.PNNEU ---
Subjective Subjective Comments: no acute events. no cp, no dyspnea. feels well Active Medications: Active Medications Acetaminophen (Tylenol) 650 mg PO Q4H PRN PRN Reason: Temp > 100.4 Last Admin: 03/23/18 21:31 Dose: 650 mg Al Hydroxide/Mg Hydroxide (Milk Of Magndelilah Liq) 30 ml PO Q12H PRN PRN Reason: Mild Constipation Last Admin: 03/20/18 08:42 Dose: 30 ml Albuterol (Duoneb Neb ([facility])) 1 ampul NEB Q6HR WHILE AWAKE NEB [facility] Last Admin: 03/24/18 19:49 Dose: 1 ampul Amlodipine Besylate (Norvasc) 10 mg PO DAILY [facility] Last Admin: 03/25/18 08:14 Dose: 10 mg Aspirin (Aspirin Chew) 81 mg PO DAILY [facility] Last Admin: 03/25/18 08:14 Dose: 81 mg Atorvastatin Calcium (Lipitor) 40 mg PO DAILY [facility] Last Admin: 03/25/18 08:13 Dose: 40 mg Bisacodyl (Dulcolax Supp) 10 mg RECTAL DAILY PRN PRN Reason: SEVERE CONSITIPATION Cephalexin Monohydrate (Keflex) 500 mg PO Q6HR [facility] Last Admin: 03/25/18 05:46 Dose: 500 mg Clonidine HCl (Catapres) 0.1 mg PO Q6H PRN PRN Reason: SBP>180, DBP>95 Last Admin: 03/22/18 04:52 Dose: 0.1 mg Dextrose (D50w Vial) 50 ml IV.PUSH UNSCH PRN PRN Reason: PER HYPOGLYCEMIA PROTOCOL Escitalopram Oxalate (Lexapro) 10 mg PO DAILY [facility] Last Admin: 03/25/18 08:14 Dose: 10 mg Glucagon (Glucagon Inj) 1 mg OTHER PRN PRN PRN Reason: for Hypoglycemia Protocol Guaifenesin (Mucinex Er) 600 mg PO BID [facility] Last Admin: 03/25/18 08:13 Dose: 600 mg Heparin Sodium (Porcine) (Heparin Inj) 5,000 units SQ Q12H [facility] Last Admin: 03/25/18 05:46 Dose: 5,000 units Hydralazine HCl (Apresoline) 25 mg PO BID [facility] Last Admin: 03/25/18 08:14 Dose: 25 mg Insulin Aspart (Novolog Insulin Correctional Sugar Inj) 0 unit SQ ACHS [facility]; Protocol Last Admin: 03/25/18 08:15 Dose: Not Given Lactulose (Lactulose Liq) 30 ml PO DAILY PRN PRN Reason: SEVERE CONSITIPATION Melatonin (Melatonin) 5 mg PO HS PRN PRN Reason: INSOMNIA Last Admin: 03/24/18 21:12 Dose: 5 mg Memantine (Namenda) 10 mg PO BID [facility] Last Admin: 03/25/18 08:14 Dose: 10 mg Metoprolol Succinate (Toprol Xl) 50 mg PO DAILY [facility] Last Admin: 03/25/18 08:14 Dose: 50 mg Ondansetron HCl (Zofran Inj) 4 mg IV.PUSH Q6H PRN PRN Reason: NAUSEA OR VOMITING Last Admin: 03/19/18 09:05 Dose: 4 mg Quetiapine Fumarate (Seroquel) 25 mg PO DAILY [facility] Last Admin: 03/25/18 08:13 Dose: 25 mg Risperidone (Risperdal) 0.25 mg PO DAILY [facility] Last Admin: 03/25/18 08:14 Dose: 0.25 mg Senna/Docusate Sodium (Radha-Colace) 1 tab PO BID [facility] Last Admin: 03/25/18 08:14 Dose: 1 tab Sennosides (Senokot) 17.2 mg PO Q12H PRN PRN Reason: Moderate Constipation Sodium Chloride (Ns Flush) 2 ml IV.FLUSH PRN PRN PRN Reason: FLUSH AFTER USING IV ACCESS Last Admin: 03/18/18 21:56 Dose: 2 ml Temazepam (Restoril) 15 mg PO HS PRN PRN Reason: INSOMNIA Triamterene/HCTZ (Dyazide 37.5/25 Mg) 1 cap PO DAILY [facility] Last Admin: 03/25/18 08:14 Dose: 1 cap Allergies/Adverse Reactions: Allergies Allergy/AdvReac Type Severity Reaction Status Date / Time benazepril AdvReac Severe swelling Verified 03/18/18 22:51 of face lips captopril AdvReac Severe swelling Verified 03/18/18 22:51 of face lips enalaprilat AdvReac Severe swelling Verified 03/18/18 22:51 of face lips fosinopril AdvReac Severe swelling Verified 03/18/18 22:51 of face lips lisinopril AdvReac Severe swelling Verified 03/18/18 22:51 of face lips quinapril AdvReac Severe swelling Verified 03/18/18 22:51 of face lips Review of Systems All other systems reviewed negative except as stated in HPI Physical Exam Vital signs: Vital Signs 03/24/18 12:00 03/24/18 13:11 03/24/18 16:00 Temperature 98.5 F 97.4 F L Pulse Rate 84 65 70 Respiratory Rate 20 16 20 Blood Pressure 116/67 176/81 H Pulse Oximetry 96 96 03/24/18 19:50 03/24/18 20:00 03/25/18 00:00 Temperature 98.2 F 98.0 F Pulse Rate 61 58 L 57 L Respiratory Rate 18 16 20 Blood Pressure 123/60 176/70 H Pulse Oximetry 95 93 L 03/25/18 04:00 03/25/18 08:00 Temperature 98.2 F 98.6 F Pulse Rate 72 74 Respiratory Rate 20 15 Blood Pressure 108/81 150/67 H Pulse Oximetry 96 93 L Intake & Output 03/24/18 03/25/18 03/25/18 18:59 06:59 18:59 Output Total 154 / 154 Balance -154 / -154 Weight 90.6 kg Output: Urine 154 / 154 Other: # Voids 2 Date of Last Bowel Movement 03/22/18 03/23/18 Narrative: GENERAL: Well-developed well-nourished elderly male patient, no acute distress. NECK: Trachea midline. CARDIOVASCULAR: Regular rate and rhythm. RESPIRATORY: No accessory muscle use. GASTROINTESTINAL: Abdomen soft, non-tender, nondistended. MUSCULOSKELETAL: Extremities without clubbing or cyanosis, or edema NEUROLOGICAL: Awake and alert. ox 1-2, recognizes me, pleasant, follows, vff, face sym, edwards to gravity, gait not assessed secondary fall risk PSYCHIATRIC: Calm and cooperative. - Constitutional no acute distress - Routine HEENT Exam Head: Present: normocephalic Eye: Present: EOMI Objective Laboratory Results - last 24 hr 03/24/18 03/24/18 03/24/18 12:35 17:03 20:24 POC Glucose 158 H 161 H 165 H 03/25/18 07:17 POC Glucose 136 H Review/Management - Diagnosis (1) Behavioral disorder Status: Acute Current Visit: Yes (2) Encephalopathy Code(s): G93.40 - Encephalopathy, unspecified Status: Acute Current Visit: Yes (3) Dementia Code(s): F03.90 - Unspecified dementia without behavioral disturbance Status: Acute Current Visit: Yes (4) Diabetes Code(s): E11.9 - Type 2 diabetes mellitus without complications Status: Acute Current Visit: Yes - Review/Management Plan: Fluctuating mental status. Moderate dementia suspect of Alzheimer's type he also may have Lewy body component based on the recent delusions and almost visual hallucinations and at times sensitivity to neuroleptic agents On low-dose Namenda, low-dose Seroquel, Lexapro Recommendations doing well namenda 10mg bid seen by psych. d/c risperdal and seroquel bid prn d/c planning rehab f/u with me outpatient
[2018-03-25] MEDS ORDERED: QUEtiapine 25 MG Tablet PO PRN (09:00)
--- NOTE | 2018-03-25 11:30 | P.PN ---
Subjective Interval history: Follow up on patient with NPH, dementia. Patient seen and examined. Pt. sitting up at d, eating breakfast. Oriented to place. Disorganized today, refusing to take meds. Wants to wait for . No cough, no wheezing. No acute changes overnight. No fever. No family at [facility] re-evaluated pt. later in the day, and daughter present, per , pt. c/o headache earlier, holding head. He is sleeping at this time. Physical Exam Vital signs: Vital Signs 03/24/18 12:00 03/24/18 13:11 03/24/18 16:00 Temperature 98.5 F 97.4 F L Pulse Rate 84 65 70 Respiratory Rate 20 16 20 Blood Pressure 116/67 176/81 H Pulse Oximetry 96 96 03/24/18 19:50 03/24/18 20:00 03/25/18 00:00 Temperature 98.2 F 98.0 F Pulse Rate 61 58 L 57 L Respiratory Rate 18 16 20 Blood Pressure 123/60 176/70 H Pulse Oximetry 95 93 L 03/25/18 04:00 03/25/18 07:00 03/25/18 08:00 Temperature 98.2 F 98.6 F Pulse Rate 72 74 Respiratory Rate 20 15 Blood Pressure 108/81 150/67 H Pulse Oximetry 96 95 93 L Intake & Output 03/24/18 03/25/18 03/25/18 18:59 06:59 18:59 Output Total 154 / 154 Balance -154 / -154 Weight 90.6 kg Output: Urine 154 / 154 Other: # Voids 2 Date of Last Bowel Movement 03/22/18 03/23/18 Narrative: GENERAL: Well-developed well-nourished elderly male patient, no acute distress. Sitting up in bed. NECK: Trachea midline. CARDIOVASCULAR: Regular rate and rhythm. RESPIRATORY: No accessory muscle use. Fair air entry. Breath sounds equal bilateral, no wheezing noted. GASTROINTESTINAL: Abdomen soft, non-tender, nondistended. +BS. MUSCULOSKELETAL: Extremities without clubbing or cyanosis, or edema NEUROLOGICAL: Awake, oriented x 1. No focal deficits. Following commands, speech is clear PSYCHIATRIC: Disorganized Results - Labs CBC & Chem 7: 03/20/18 04:23 03/20/18 04:23 Laboratory Results - last 24 hr 03/24/18 03/24/18 03/24/18 12:35 17:03 20:24 POC Glucose 158 H 161 H 165 H 03/25/18 07:17 POC Glucose 136 H - Procedures None Assessment and Plan - Assessment (1) Cellulitis of foot without toes, left Code(s): L03.116 - Cellulitis of left lower limb Status: Acute (2) Encephalopathy Code(s): G93.40 - Encephalopathy, unspecified Status: Acute (3) Dementia Code(s): F03.90 - Unspecified dementia without behavioral disturbance Status: Acute (4) NPH (normal pressure hydrocephalus) Code(s): G91.2 - (Idiopathic) normal pressure hydrocephalus Status: Acute (5) Diabetes Code(s): E11.9 - Type 2 diabetes mellitus without complications Status: Acute - Plan 82-year-old male with a past medical history significant for normal pressure hydrocephalus, peripheral vascular disease, hypertension, dementia and hyperlipidemia presents to the emergency department accompanied by his for the evaluation of altered mental status and a painful, swollen left foot. Altered mental status/acute encephalopathy likely multifactorial in patient with normal pressure hydrocephalus with dementia. Also patient with insomnia/poor sleep last night which may be contributing factor. Head CT negative for acute process Urine drug screen negative -Neurology consulted, appreciate recommendations. Started on low dose Seroquel , Namenda and Risperdal. Also started on Lexapro. Has requested patient be seen by Psychiatry and feels may benefit from inpatient hospitalization in the [facility] [place] -Psychiatry evaluated- delirium superimposed on dementia. Recommend to continue Seroquel, Lexapro. Recommends that Risperdal can be discontinued. Agrees with Namenda and also adding Aricept. Patient does not meet criteria for inpatient psychiatric admission. -med changes per [employer] Namenda to 10 mg po bid, Seroequel 25 mg po bid, dc 'd Risperidone. Ok to dc, f/u as OP NPH -Neurology following as above, appreciate assistance. -Patient evaluated at [place] for possible SIDEHAND shunt but not felt to be likely effective Headache, hx of NPH -Tylenol prn -if worsening, will check CT of head. Family wants to hold on for now. Left foot swelling/pain, improved ? Cellulitis Possible gout/pseudogout ESR 52, CRP 23 Foot x-ray negative Ankle x-ray negative CT ankle no evidence of fracture or subluxation, osteoarthritis, probable synovitis and tendinosis, subcutaneous edema without organized or drainable fluid Lower extremity ultrasound negative for DVT Treated with Colchicine -Continue on Keflex until today -left ankle improved, no erythema, no swelling. Cough, chest congestion Improved, no fever, no resp. distress. -Continue with scheduled Duonebs and Mucinex -CXR reviewed, no acute findings. -IS and acapella -monitor respiratory status-stable Hypertension/hyperlipidemia/dementia -BP elevated, possibly due to increased agitation. -Continue on increased dose of Toprol-XL 50 mg daily. Continue patient on Dyazide and Norvasc. -Continue with Hydralazine 25mg BID. -clonidine as needed with parameters. -Continue on Lipitor 40 mg daily Suspected chronic kidney disease May be chronic component creatinine 1.44, suspect near baseline -s/p IV fluid hydration -Monitor renal function as indicated Diabetes HgbA1c 8.3 -Changed to heart healthy diabetic diet -continue on Accu-Cheks with insulin sliding scale-change to BID 0700 and 1700. Difficulty with obtaining sample, pt. becoming anxious and refusing. -consult to teacher of the emotionally disturbed Chronic right leg/foot pain Hx of PVD -continue with PT Dysphagia -evaluated by speech therapy and placed on nectar thickened liquids. Re- evaluated by speech therapy and changed to thin liquids. Insomnia, possibly contributing to increased agitation -Started on Risperdal by neurology. Seroquel added as well. Deconditioned Impaired ADLs -continue participation with PT/OT. Jacob submitted authorization for admission but was declined by insurance. SNF pending, family to provide 3 facility names. DVT prophylaxis -Patient is on Heparin SQ To SNF when arrangements made Heather also evaluated at family's request for home after SNF Code Status: Full code Discussed Condition With: RN, pt., CM addendum, went back to room to discuss with and daughter. They are looking for another SNF to give to . Discharge Planning: to SNF soon, poss tomorrow.
[2018-03-25] MEDS: Melatonin 5 MG Tablet PO PRN (21:09)
[2018-03-26] MEDS: Heparin - SQ 10,000 UNITS/ML Vial SQ SCH ×2 (06:05→17:47)
[2018-03-26] MEDS: Insulin NovoLOG Aspart Correctional Sugar Inj SQ SCH ×2 (09:02→22:40)
[2018-03-26] MEDS: Senna/Docusate Sodium 8.6/50 MG Tablet PO SCH ×2 (09:57→22:37)
[2018-03-26] MEDS: guaiFENesin 600 MG ER Tablet PO SCH ×2 (09:57→22:37)
[2018-03-26] MEDS: amLODIPine 10 MG Tablet PO SCH (09:57)
[2018-03-26] MEDS: Escitalopram 10 MG Tablet PO SCH (09:58)
[2018-03-26] MEDS: hydrALAZINE 25 MG Tablet PO SCH ×2 (09:58→22:39)
--- NOTE | 2018-03-26 10:30 | P.PN ---
Subjective Interval history: Follow up on patient with NPH, dementia. Patient seen and examined. Pt. sitting up at bsd, eating breakfast. Oriented to self and place, less disorganized today. Accepting my help to assist with his breakfast. States he is waiting for his . Denies headache when asked. Per RN, some agitation overnight. Physical Exam Vital signs: Vital Signs 03/25/18 12:00 03/25/18 16:00 03/25/18 20:00 Temperature 97.6 F 98.2 F 98.1 F Pulse Rate 74 62 66 Respiratory Rate 20 18 17 Blood Pressure 126/60 136/61 128/62 Pulse Oximetry 93 L 94 L 94 L 03/25/18 20:06 03/25/18 23:55 03/26/18 04:00 Temperature 98 F 98.1 F Pulse Rate 67 64 65 Respiratory Rate 17 16 16 Blood Pressure 126/61 129/61 Pulse Oximetry 94 L 95 03/26/18 07:54 03/26/18 08:37 Temperature 97.8 F Pulse Rate 77 Respiratory Rate 20 16 Blood Pressure 177/83 H Pulse Oximetry 95 Intake & Output 03/25/18 03/26/18 03/26/18 18:59 06:59 18:59 Intake Total 200 / 200 Output Total 150 / 150 Balance -150 / -150 200 / 200 Weight 90.5 kg Intake: Oral 200 / 200 Output: Urine 150 / 150 Other: # Voids 3 Date of Last Bowel Movement 03/25/18 # Bowel Movements 1 Narrative: GENERAL: Well-developed well-nourished elderly male patient, no acute distress. Sitting up in bed. NECK: Trachea midline. CARDIOVASCULAR: Regular rate and rhythm. RESPIRATORY: No accessory muscle use. Fair air entry. Breath sounds equal bilateral, no wheezing noted. GASTROINTESTINAL: Abdomen soft, non-tender, nondistended. +BS. MUSCULOSKELETAL: Extremities without clubbing or cyanosis, or edema NEUROLOGICAL: Awake, oriented x 2. No focal deficits. Following commands, speech is clear PSYCHIATRIC: Disoriented, calm Results - Labs CBC & Chem 7: 03/20/18 04:23 03/20/18 04:23 Laboratory Results - last 24 hr 03/25/18 03/25/18 03/25/18 11:41 17:36 21:25 POC Glucose 150 H 134 H 166 H 03/26/18 08:58 POC Glucose 149 H - Procedures None Assessment and Plan - Assessment (1) Cellulitis of foot without toes, left Code(s): L03.116 - Cellulitis of left lower limb Status: Acute (2) Encephalopathy Code(s): G93.40 - Encephalopathy, unspecified Status: Acute (3) Dementia Code(s): F03.90 - Unspecified dementia without behavioral disturbance Status: Acute (4) NPH (normal pressure hydrocephalus) Code(s): G91.2 - (Idiopathic) normal pressure hydrocephalus Status: Acute (5) Diabetes Code(s): E11.9 - Type 2 diabetes mellitus without complications Status: Acute - Plan 82-year-old male with a past medical history significant for normal pressure hydrocephalus, peripheral vascular disease, hypertension, dementia and hyperlipidemia presents to the emergency department accompanied by his for the evaluation of altered mental status and a painful, swollen left foot. Altered mental status/acute encephalopathy likely multifactorial in patient with normal pressure hydrocephalus with dementia. Also patient with insomnia/poor sleep last night which may be contributing factor. Head CT negative for acute process Urine drug screen negative -Neurology consulted, appreciate recommendations. Started on low dose Seroquel , Namenda and Risperdal. Also started on Lexapro. Has requested patient be seen by Psychiatry and feels may benefit from inpatient hospitalization in the geriatric psychiatry [facility] -Psychiatry evaluated- delirium superimposed on dementia. Recommend to continue Seroquel, Lexapro. Recommends that Risperdal can be discontinued. Agrees with Namenda and also adding Aricept. Patient does not meet criteria for inpatient psychiatric admission. -med changes per neuro, inc. Namenda to 10 mg po bid, Seroequel 25 mg po bid, dc 'd Risperidone. Ok to dc, f/u as OP -inc agitation especially at night, changed Seroquel from 25 mg po bid PRN to schedule BID, may need PRN at HS NPH -Neurology following as above, appreciate assistance. -Patient evaluated at [place] for possible REAL ESTATE MANAGEMENT SPECIALIST shunt but not felt to be likely effective Headache, hx of NPH -Tylenol prn -if worsening, will check CT of head. Family wants to hold on for now. -Stable today. Left foot swelling/pain, improved ? Cellulitis Possible gout/pseudogout ESR 52, CRP 23 Foot x-ray negative Ankle x-ray negative CT ankle no evidence of fracture or subluxation, osteoarthritis, probable synovitis and tendinosis, subcutaneous edema without organized or drainable fluid Lower extremity ultrasound negative for DVT Treated with Colchicine -Completed Keflex. -left ankle improved, no erythema, no swelling. Cough, chest congestion Improved, no fever, no resp. distress. -Continue with scheduled Duonebs and Mucinex -CXR reviewed, no acute findings. -IS and acapella -monitor respiratory status-stable Hypertension/hyperlipidemia/dementia -BP elevated, possibly due to increased agitation. -Continue on increased dose of Toprol-XL 50 mg daily. Continue patient on Dyazide and Norvasc. -Continue with Hydralazine 25mg BID. -clonidine as needed with parameters. -Continue on Lipitor 40 mg daily Suspected chronic kidney disease May be chronic component creatinine 1.44, suspect near baseline -s/p IV fluid hydration -Monitor renal function as indicated Diabetes HgbA1c 8.3 -Changed to heart healthy diabetic diet -continue on Accu-Cheks with insulin sliding scale-change to BID 0700 and 1700. Difficulty with obtaining sample, pt. becoming anxious and refusing. -consult to shop welder Chronic right leg/foot pain Hx of PVD -continue with PT Dysphagia -evaluated by speech therapy and placed on nectar thickened liquids. Re- evaluated by speech therapy and changed to thin liquids. Insomnia, possibly contributing to increased agitation -Started on Risperdal by neurology. Seroquel added as well. Deconditioned Impaired ADLs -continue participation with PT/OT. Jacob submitted authorization for admission but was declined by insurance. SNF pending, family to provide 3 facility names. DVT prophylaxis -Patient is on Heparin SQ D/W pt's daughter at length, pt. ambulating better with contact guard only. They are leaning to taking him home with HHC and PT. They have secured night time help for supervision and have already started to obtain some equipment including hospital bed CM following, SNF referrals have been sent. Will talk to daughter again to finalize decision on HHC. Pt's brought in living will, discussed goals of care and code status. She confirms that pt. is a DNR and would like code status to be changed. Code Status: Full code Discussed Condition With: RN, pt's family-daughter and , CM D/W Dr. Jensen Discharge Planning: Family leaning towards HHC instead of SNF, to decide today
[2018-03-26] MEDS ORDERED: QUEtiapine 25 MG Tablet PO SCH ×2 (12:00→21:00)
--- NOTE | 2018-03-26 12:56 | P.DCO ---
- Diagnosis (1) Encephalopathy Status: Acute (2) Dementia Status: Acute (3) NPH (normal pressure hydrocephalus) Status: Acute (4) Cellulitis of foot without toes, left Status: Acute (5) Diabetes Status: Acute (6) Behavioral disorder Status: Acute - Physical Therapy Order: Evaluate and treat - Home Health Nursing Order: Medical education, Signs/symptoms of disease process, Medication education-adverse effect, Nursing assessment with vital signs - Case Management Consult Case Management Consult-Home Health: Yes - Certification I have seen patient Enrrique Pimentel on 03/26/18. My clinical findings support the need for the requested home health care services because: high risk for falls, unsteady gait, dementia with behavioral disturbance. Limited mobility due to disease progression, Deconditioned with increased weakness, Limited ability to care for self, Need for psychosocial assistance, Impaired cognition/judgement, High risk of falls I certify that my clinical findings support that this patient is homebound because: Impaired cognitive ability/safety, Unsteady gait/balance, Need for psychosocial assistance
--- NOTE | 2018-03-26 13:43 | P.PN ---
Subjective Interval history: no new issues will change seroquel to 25mg tid and add 0.5mg haldol bid prn for breakthrough Physical Exam Vital signs: Vital Signs 03/25/18 16:00 03/25/18 20:00 03/25/18 20:06 Temperature 98.2 F 98.1 F Pulse Rate 62 66 67 Respiratory Rate 18 17 17 Blood Pressure 136/61 128/62 Pulse Oximetry 94 L 94 L 03/25/18 23:55 03/26/18 04:00 03/26/18 07:54 Temperature 98 F 98.1 F 97.8 F Pulse Rate 64 65 77 Respiratory Rate 16 16 20 Blood Pressure 126/61 129/61 177/83 H Pulse Oximetry 94 L 95 95 03/26/18 08:37 03/26/18 11:53 Temperature 97.9 F Pulse Rate 79 Respiratory Rate 16 18 Blood Pressure 145/68 H Pulse Oximetry 96 Intake & Output 03/25/18 03/26/18 03/26/18 18:59 06:59 18:59 Intake Total 200 / 200 Output Total 150 / 150 Balance -150 / -150 200 / 200 Weight 90.5 kg Intake: Oral 200 / 200 Output: Urine 150 / 150 Other: # Voids 3 Date of Last Bowel Movement 03/25/18 # Bowel Movements 1 - Constitutional no acute distress - Routine HEENT Exam Head: Present: normocephalic Eye: Present: EOMI - Routine Neurological Exam Present: alert, CN II-XII intact Results - Labs CBC & Chem 7: 03/20/18 04:23 03/20/18 04:23 Laboratory Results - last 24 hr 03/25/18 03/25/18 03/26/18 17:36 21:25 08:58 POC Glucose 134 H 166 H 149 H - Procedures None Assessment and Plan - Assessment (1) Behavioral disorder Status: Acute (2) Encephalopathy Code(s): G93.40 - Encephalopathy, unspecified Status: Acute (3) Dementia Code(s): F03.90 - Unspecified dementia without behavioral disturbance Status: Acute (4) Diabetes Code(s): E11.9 - Type 2 diabetes mellitus without complications Status: Acute
[2018-03-26] MEDS ORDERED: Haloperidol 1 MG Tablet PO PRN (14:00)
[2018-03-26] MEDS: QUEtiapine 25 MG Tablet PO SCH ×2 (14:21→17:47)
[2018-03-26] MEDS: Acetaminophen 325 MG Tablet PO PRN (17:48)
[2018-03-27] MEDS: Heparin - SQ 10,000 UNITS/ML Vial SQ SCH ×2 (06:03→18:22)
[2018-03-27] MEDS: hydrALAZINE 25 MG Tablet PO SCH ×2 (10:33→20:46)
[2018-03-27] MEDS: Escitalopram 10 MG Tablet PO SCH (10:33)
[2018-03-27] MEDS: Senna/Docusate Sodium 8.6/50 MG Tablet PO SCH ×2 (10:34→20:45)
[2018-03-27] MEDS: QUEtiapine 25 MG Tablet PO SCH ×3 (10:34→18:22)
[2018-03-27] MEDS: amLODIPine 10 MG Tablet PO SCH (10:34)
[2018-03-27] MEDS: guaiFENesin 600 MG ER Tablet PO SCH ×2 (10:34→20:46)
[2018-03-27] MEDS: Insulin NovoLOG Aspart Correctional Sugar Inj SQ SCH ×2 (10:35→20:46)
--- NOTE | 2018-03-27 10:44 | P.PN ---
Subjective Interval history: Follow up on patient with NPH, dementia. Patient seen and examined. Sitting up in chair, eating breakfast. Disoriented but easily to re-direct. Feeding himself. C/O headache. No recent cough. No fever. No episodes of agitation at night that required PRN Haldol. Left foot pain resolved. Physical Exam Vital signs: Vital Signs 03/26/18 11:53 03/26/18 16:00 03/26/18 19:56 Temperature 97.9 F 97.2 F L Pulse Rate 79 59 L 72 Respiratory Rate 18 18 16 Blood Pressure 145/68 H 140/64 Pulse Oximetry 96 94 L 03/26/18 20:00 03/27/18 00:00 03/27/18 04:00 Temperature 98.0 F 97.6 F 97.9 F Pulse Rate 60 64 65 Respiratory Rate 18 Blood Pressure 164/68 H 160/66 H 165/74 H Pulse Oximetry 95 96 97 03/27/18 07:54 03/27/18 08:29 Temperature 97.8 F Pulse Rate 73 61 Respiratory Rate 18 16 Blood Pressure 161/74 H Pulse Oximetry 96 Intake & Output 03/26/18 03/27/18 03/27/18 18:59 06:59 18:59 Intake Total 1200 / 1200 Output Total 800 / 800 800 / 800 Balance 400 / 400 -800 / -800 Weight 90 kg Intake: Oral 1200 / 1200 Output: Urine 800 / 800 800 / 800 Other: Date of Last Bowel Movement 03/23/18 03/23/18 Narrative: GENERAL: Well-developed well-nourished elderly male patient, no acute distress. Sitting up in bed. NECK: Trachea midline. CARDIOVASCULAR: Regular rate and rhythm. RESPIRATORY: No accessory muscle use. Fair air entry. Breath sounds equal bilateral, no wheezing noted. GASTROINTESTINAL: Abdomen soft, non-tender, nondistended. +BS. MUSCULOSKELETAL: Extremities without clubbing or cyanosis, or edema NEUROLOGICAL: Awake, oriented x 2. No focal deficits. Following commands, speech is clear PSYCHIATRIC: Disoriented, calm Results - Labs CBC & Chem 7: 03/20/18 04:23 03/20/18 04:23 Laboratory Results - last 24 hr 03/27/18 07:51 POC Glucose 144 H - Procedures None Assessment and Plan - Assessment (1) Cellulitis of foot without toes, left Code(s): L03.116 - Cellulitis of left lower limb Status: Acute (2) Encephalopathy Code(s): G93.40 - Encephalopathy, unspecified Status: Acute (3) Dementia Code(s): F03.90 - Unspecified dementia without behavioral disturbance Status: Acute (4) NPH (normal pressure hydrocephalus) Code(s): G91.2 - (Idiopathic) normal pressure hydrocephalus Status: Acute (5) Diabetes Code(s): E11.9 - Type 2 diabetes mellitus without complications Status: Acute - Plan 82-year-old male with a past medical history significant for normal pressure hydrocephalus, peripheral vascular disease, hypertension, dementia and hyperlipidemia presents to the emergency department accompanied by his for the evaluation of altered mental status and a painful, swollen left foot. Altered mental status/acute encephalopathy likely multifactorial in patient with normal pressure hydrocephalus with dementia. Also patient with insomnia/poor sleep last night which may be contributing factor. Head CT negative for acute process Urine drug screen negative -Neurology consulted, appreciate recommendations. Started on low dose Seroquel , Namenda and Risperdal. Also started on Lexapro. Has requested patient be seen by Psychiatry and feels may benefit from inpatient hospitalization in the [facility]iatric psychiatry [place] -Psychiatry evaluated- delirium superimposed on dementia. Recommend to continue Seroquel, Lexapro. Recommends that Risperdal can be discontinued. Agrees with Namenda and also adding Aricept. Patient does not meet criteria for inpatient psychiatric admission. -med changes per neuro, inc. Namenda to 10 mg po bid, Seroequel 25 mg po bid, dc 'd Risperidone. Ok to dc, f/u as OP -appreciate neuro input, d/w Dr. Cornelius yesterday. Inc. Seroquel to 25 mg PO TID and added Haldol 0.5 mg PO BID PRN agitation. -pt. better today. NPH -Neurology following as above, appreciate assistance. -Patient evaluated at [place] for possible EVENT SALES ASSISTANT shunt but not felt to be likely effective Headache, hx of NPH -Tylenol prn -if worsening, will check CT of head. Family wants to hold on for now. -Stable today. Left foot swelling/pain, improved ? Cellulitis Possible gout/pseudogout ESR 52, CRP 23 Foot x-ray negative Ankle x-ray negative CT ankle no evidence of fracture or subluxation, osteoarthritis, probable synovitis and tendinosis, subcutaneous edema without organized or drainable fluid Lower extremity ultrasound negative for DVT Treated with Colchicine -Completed Keflex. -left ankle improved, no erythema, no swelling. Cough, chest congestion Improved, no fever, no resp. distress. -Continue with scheduled Duonebs and Mucinex -CXR reviewed, no acute findings. -IS and acapella -monitor respiratory status-stable Hypertension/hyperlipidemia/dementia -BP elevated, possibly due to increased agitation. -Continue on increased dose of Toprol-XL 50 mg daily. Continue patient on Dyazide and Norvasc. -Continue with Hydralazine 25mg BID. -clonidine as needed with parameters. -Continue on Lipitor 40 mg daily Suspected chronic kidney disease May be chronic component creatinine 1.44, suspect near baseline -s/p IV fluid hydration -Monitor renal function as indicated Diabetes HgbA1c 8.3 -Changed to heart healthy diabetic diet -continue on Accu-Cheks with insulin sliding scale-change to BID 0700 and 1700. Difficulty with obtaining sample, pt. becoming anxious and refusing. -consult to mechanical assembly technician Chronic right leg/foot pain Hx of PVD -continue with PT Dysphagia -evaluated by speech therapy and placed on nectar thickened liquids. Re- evaluated by speech therapy and changed to thin liquids. Insomnia, possibly contributing to increased agitation -Started on Risperdal by neurology. Seroquel added as well. Deconditioned Impaired ADLs -continue participation with PT/OT. Jacob submitted authorization for admission but was declined by insurance. -pt. has improved mobility with walker, and contact guard. Will be going home with HHC/PT and nighttime caregiver. DVT prophylaxis -Patient is on Heparin SQ CM following, HHC/PT arranged. DME has been ordered, will be delivered on Wednesday. Code Status: DNR Discussed Condition With: pt, pt's family, RN, CM Discharge Planning: Home tomorrow with HHC, equipment needs to be delivered.
[2018-03-27] MEDS: Acetaminophen 325 MG Tablet PO PRN (14:49)
[2018-03-28] MEDS: Heparin - SQ 10,000 UNITS/ML Vial SQ SCH ×2 (05:50→17:34)
--- NOTE | 2018-03-28 08:13 | P.PNNEU ---
Subjective Subjective Comments: no acute events. slept well. no cp, no dyspnea. no agitation. d/w rn Active Medications: Active Medications Acetaminophen (Tylenol) 650 mg PO Q4H PRN PRN Reason: Temp > 100.4 Last Admin: 03/27/18 14:49 Dose: 650 mg Al Hydroxide/Mg Hydroxide (Milk Of Magnesia Liq) 30 ml PO Q12H PRN PRN Reason: Mild Constipation Last Admin: 03/20/18 08:42 Dose: 30 ml Amlodipine Besylate (Norvasc) 10 mg PO DAILY [facility] Last Admin: 03/27/18 10:34 Dose: 10 mg Aspirin (Aspirin Chew) 81 mg PO DAILY [facility] Last Admin: 03/27/18 10:33 Dose: 81 mg Atorvastatin Calcium (Lipitor) 40 mg PO DAILY [facility] Last Admin: 03/27/18 10:34 Dose: 40 mg Bisacodyl (Dulcolax Supp) 10 mg RECTAL DAILY PRN PRN Reason: SEVERE CONSITIPATION Clonidine HCl (Catapres) 0.1 mg PO Q6H PRN PRN Reason: SBP>180, DBP>95 Last Admin: 03/22/18 04:52 Dose: 0.1 mg Dextrose (D50w Vial) 50 ml IV.PUSH UNSCH PRN PRN Reason: PER HYPOGLYCEMIA PROTOCOL Escitalopram Oxalate (Lexapro) 10 mg PO DAILY [facility] Last Admin: 03/27/18 10:33 Dose: 10 mg Glucagon (Glucagon Inj) 1 mg OTHER PRN PRN PRN Reason: for Hypoglycemia Protocol Guaifenesin (Mucinex Er) 600 mg PO BID [facility] Last Admin: 03/27/18 20:46 Dose: 600 mg Haloperidol (Haldol) 0.5 mg PO BID PRN PRN Reason: AGITATION AND/OR HALLUCINATION Heparin Sodium (Porcine) (Heparin Inj) 5,000 units SQ Q12H [facility] Last Admin: 03/28/18 05:50 Dose: Not Given Hydralazine HCl (Apresoline) 25 mg PO BID [facility] Last Admin: 03/27/18 20:46 Dose: 25 mg Insulin Aspart (Novolog Insulin Correctional Sugar Inj) 0 unit SQ BID [facility]; Protocol Last Admin: 03/27/18 20:46 Dose: Not Given Lactulose (Lactulose Liq) 30 ml PO DAILY PRN PRN Reason: SEVERE CONSITIPATION Melatonin (Melatonin) 5 mg PO HS PRN PRN Reason: INSOMNIA Last Admin: 03/25/18 21:09 Dose: 5 mg Memantine (Namenda) 10 mg PO BID [facility] Last Admin: 03/27/18 20:45 Dose: 10 mg Metoprolol Succinate (Toprol Xl) 50 mg PO DAILY [facility] Last Admin: 03/27/18 10:34 Dose: 50 mg Ondansetron HCl (Zofran Inj) 4 mg IV.PUSH Q6H PRN PRN Reason: NAUSEA OR VOMITING Last Admin: 03/19/18 09:05 Dose: 4 mg Quetiapine Fumarate (Seroquel) 25 mg PO TID [facility] Last Admin: 03/27/18 18:22 Dose: 25 mg Senna/Docusate Sodium (Radha-Colace) 1 tab PO BID [facility] Last Admin: 03/27/18 20:45 Dose: 1 tab Sennosides (Senokot) 17.2 mg PO Q12H PRN PRN Reason: Moderate Constipation Sodium Chloride (Ns Flush) 2 ml IV.FLUSH PRN PRN PRN Reason: FLUSH AFTER USING IV ACCESS Last Admin: 03/18/18 21:56 Dose: 2 ml Temazepam (Restoril) 15 mg PO HS PRN PRN Reason: INSOMNIA Triamterene/HCTZ (Dyazide 37.5/25 Mg) 1 cap PO DAILY [facility] Last Admin: 03/27/18 10:34 Dose: 1 cap Allergies/Adverse Reactions: Allergies Allergy/AdvReac Type Severity Reaction Status Date / Time benazepril AdvReac Severe swelling Verified 03/18/18 22:51 of face lips captopril AdvReac Severe swelling Verified 03/18/18 22:51 of face lips enalaprilat AdvReac Severe swelling Verified 03/18/18 22:51 of face lips fosinopril AdvReac Severe swelling Verified 03/18/18 22:51 of face lips lisinopril AdvReac Severe swelling Verified 03/18/18 22:51 of face lips quinapril AdvReac Severe swelling Verified 03/18/18 22:51 of face lips Review of Systems All other systems reviewed negative except as stated in HPI Physical Exam Vital signs: Vital Signs 03/27/18 08:29 03/27/18 11:56 03/27/18 15:27 Temperature 98.1 F 98 F Pulse Rate 61 53 L 50 L Respiratory Rate 16 18 20 Blood Pressure 122/56 L 135/62 Pulse Oximetry 98 93 L 03/27/18 16:51 03/27/18 20:00 03/28/18 00:00 Temperature 97.7 F 97.8 F Pulse Rate 69 65 Respiratory Rate 18 20 20 Blood Pressure 125/59 L 141/71 H Pulse Oximetry 96 95 03/28/18 04:00 03/28/18 07:00 03/28/18 07:58 Temperature 97.9 F 98.3 F Pulse Rate 70 68 Respiratory Rate 20 12 20 Blood Pressure 143/76 H 180/78 H Pulse Oximetry 96 94 L Intake & Output 03/27/18 03/28/18 03/28/18 18:59 06:59 18:59 Intake Total 1300 / 1300 Output Total 1200 / 1200 950 / 950 Balance 100 / 100 -950 / -950 Weight 90.2 kg Intake: Oral 1300 / 1300 Output: Urine 1200 / 1200 950 / 950 Other: Date of Last Bowel Movement 03/25/18 03/23/18 Narrative: GENERAL: in nad NECK: Trachea midline. CARDIOVASCULAR: Regular rate and rhythm. RESPIRATORY: No accessory muscle use. GASTROINTESTINAL: Abdomen soft, non-tender, nondistended. +BS. MUSCULOSKELETAL: Extremities without clubbing or cyanosis, or edema NEUROLOGICAL: Awake, oriented x 2. not to date, eomi, vff, No focal deficits. Following commands, edwards to gravity PSYCHIATRIC: Disoriented, calm - Constitutional no acute distress - Routine HEENT Exam Head: Present: normocephalic Eye: Present: EOMI Objective Laboratory Results - last 24 hr 03/28/18 07:14 POC Glucose 148 H Review/Management - Diagnosis (1) Behavioral disorder Status: Acute Current Visit: Yes (2) Encephalopathy Code(s): G93.40 - Encephalopathy, unspecified Status: Acute Current Visit: Yes (3) Dementia Code(s): F03.90 - Unspecified dementia without behavioral disturbance Status: Acute Current Visit: Yes (4) Diabetes Code(s): E11.9 - Type 2 diabetes mellitus without complications Status: Acute Current Visit: Yes - Review/Management Plan: Fluctuating mental status. Moderate dementia suspect of Alzheimer's type he also may have Lewy body component based on the recent delusions and almost visual hallucinations and at times sensitivity to neuroleptic agents On low-dose Namenda, low-dose Seroquel, Lexapro Recommendations doing well namenda 10mg bid d/c planning home/rehab f/u with me outpatient as scheduled
[2018-03-28] MEDS: Senna/Docusate Sodium 8.6/50 MG Tablet PO SCH ×2 (08:14→22:47)
[2018-03-28] MEDS: amLODIPine 10 MG Tablet PO SCH (08:14)
[2018-03-28] MEDS: QUEtiapine 25 MG Tablet PO SCH ×3 (08:14→17:34)
[2018-03-28] MEDS: Escitalopram 10 MG Tablet PO SCH (08:14)
[2018-03-28] MEDS: hydrALAZINE 25 MG Tablet PO SCH ×2 (08:14→22:47)
[2018-03-28] MEDS: Insulin NovoLOG Aspart Correctional Sugar Inj SQ SCH ×2 (08:14→22:50)
[2018-03-28] MEDS: guaiFENesin 600 MG ER Tablet PO SCH ×2 (08:14→22:48)
--- NOTE | 2018-03-28 10:41 | P.PN ---
Subjective Interval history: Follow up on patient with NPH, dementia. Patient seen and examined. Pleasant, cooperative, disoriented. No agitation overnight, did not require Haldol. No acute changes overnight. No fever. Review of systems unreliable. Physical Exam Vital signs: Vital Signs 03/27/18 11:56 03/27/18 15:27 03/27/18 16:51 Temperature 98.1 F 98 F Pulse Rate 53 L 50 L Respiratory Rate 18 20 18 Blood Pressure 122/56 L 135/62 Pulse Oximetry 98 93 L 03/27/18 20:00 03/28/18 00:00 03/28/18 04:00 Temperature 97.7 F 97.8 F 97.9 F Pulse Rate 69 65 70 Respiratory Rate 20 20 20 Blood Pressure 125/59 L 141/71 H 143/76 H Pulse Oximetry 96 95 96 03/28/18 07:00 03/28/18 07:58 Temperature 98.3 F Pulse Rate 68 Respiratory Rate 12 20 Blood Pressure 180/78 H Pulse Oximetry 94 L Intake & Output 03/27/18 03/28/18 03/28/18 18:59 06:59 18:59 Intake Total 1300 / 1300 Output Total 1200 / 1200 950 / 950 Balance 100 / 100 -950 / -950 Weight 90.2 kg Intake: Oral 1300 / 1300 Output: Urine 1200 / 1200 950 / 950 Other: Date of Last Bowel Movement 03/25/18 03/23/18 Narrative: GENERAL: Well-developed well-nourished elderly male patient, no acute distress. Sitting up in bed. NECK: Trachea midline. CARDIOVASCULAR: Regular rate and rhythm. RESPIRATORY: No accessory muscle use. Fair air entry. Breath sounds equal bilateral, mild expiratory wheeze left upper lobe. GASTROINTESTINAL: Abdomen soft, non-tender, nondistended. +BS. MUSCULOSKELETAL: Extremities without clubbing or cyanosis, or edema NEUROLOGICAL: Awake, oriented x 2. No focal deficits. Following commands, speech is clear PSYCHIATRIC: Disoriented, calm, pleasant. Results - Labs CBC & Chem 7: 03/20/18 04:23 03/20/18 04:23 Laboratory Results - last 24 hr 03/28/18 07:14 POC Glucose 148 H - Procedures None Assessment and Plan - Assessment (1) Cellulitis of foot without toes, left Code(s): L03.116 - Cellulitis of left lower limb Status: Acute (2) Encephalopathy Code(s): G93.40 - Encephalopathy, unspecified Status: Acute (3) Dementia Code(s): F03.90 - Unspecified dementia without behavioral disturbance Status: Acute (4) NPH (normal pressure hydrocephalus) Code(s): G91.2 - (Idiopathic) normal pressure hydrocephalus Status: Acute (5) Diabetes Code(s): E11.9 - Type 2 diabetes mellitus without complications Status: Acute - Plan 82-year-old male with a past medical history significant for normal pressure hydrocephalus, peripheral vascular disease, hypertension, dementia and hyperlipidemia presents to the emergency department accompanied by his for the evaluation of altered mental status and a painful, swollen left foot. Altered mental status/acute encephalopathy likely multifactorial in patient with normal pressure hydrocephalus with dementia. Also patient with insomnia/poor sleep last night which may be contributing factor. Head CT negative for acute process Urine drug screen negative -Neurology consulted, appreciate recommendations. Started on low dose Seroquel , Namenda and Risperdal. Also started on Lexapro. Has requested patient be seen by Psychiatry and feels may benefit from inpatient hospitalization in the geriatric psychiatry [facility] -Psychiatry evaluated- delirium superimposed on dementia. Recommend to continue Seroquel, Lexapro. Recommends that Risperdal can be discontinued. Agrees with Namenda and also adding Aricept. Patient does not meet criteria for inpatient psychiatric admission. -med changes per neuro, inc. Namenda to 10 mg po bid, Seroequel 25 mg po bid, dc 'd Risperidone. -appreciate neuro input, d/w Dr. Cornelius yesterday. Inc. Seroquel to 25 mg PO TID and added Haldol 0.5 mg PO BID PRN agitation. -Mentation and behavior improved markedly on current medication. Okay to DC per neurology NPH -Neurology following as above, appreciate assistance. -Patient evaluated at [place] for possible SLOT MACHINE FLOOR PERSON shunt but not felt to be likely effective Headache, hx of NPH -Tylenol prn -if worsening, will check CT of head. Family wants to hold on for now. -Stable today. Left foot swelling/pain, improved ? Cellulitis Possible gout/pseudogout ESR 52, CRP 23 Foot x-ray negative Ankle x-ray negative CT ankle no evidence of fracture or subluxation, osteoarthritis, probable synovitis and tendinosis, subcutaneous edema without organized or drainable fluid Lower extremity ultrasound negative for DVT Treated with Colchicine -Completed Keflex. -left ankle improved, no erythema, no swelling. Cough, chest congestion Improved, no fever, no resp. distress. -Continue with scheduled Duonebs and Mucinex -CXR reviewed, no acute findings. -IS and acapella -monitor respiratory status-stable Hypertension/hyperlipidemia/dementia -BP elevated, possibly due to increased agitation. -Continue on increased dose of Toprol-XL 50 mg daily. Continue patient on Dyazide and Norvasc. -Continue with Hydralazine 25mg BID. -clonidine as needed with parameters. -Continue on Lipitor 40 mg daily Suspected chronic kidney disease May be chronic component creatinine 1.44, suspect near baseline -s/p IV fluid hydration -Monitor renal function as indicated Diabetes HgbA1c 8.3 -Changed to heart healthy diabetic diet -continue on Accu-Cheks with insulin sliding scale-change to BID 0700 and 1700. Difficulty with obtaining sample, pt. becoming anxious and refusing. -consulted admission nurse Chronic right leg/foot pain Hx of PVD -continue with PT Dysphagia -evaluated by speech therapy and placed on nectar thickened liquids. Re- evaluated by speech therapy and changed to thin liquids. Insomnia, possibly contributing to increased agitation -Started on Risperdal by neurology. Seroquel added as well. Deconditioned Impaired ADLs -continue participation with PT/OT. Jacob submitted authorization for admission but was declined by insurance. -pt. has improved mobility with walker, and contact guard. Will be going home with HHC/PT and nighttime caregiver. DVT prophylaxis -Patient is on Heparin SQ CM following, HHC/PT arranged. DME can't be delivered until tomorrow Pt. ready for dc Follow-up with Dr. Casillas in 1-2 weeks Follow-up with PCP 1-2 weeks Diabetic diet Activity as tolerated Code Status: DNR Discussed Condition With: RN, pt, CM, pt's sister in law Discharge Planning: Home tomorrow, equipment will be delivered tomorrow.
--- NOTE | 2018-03-28 16:49 | P.DS ---
Date of admission: 03/18/18 23:01 Primary care physician: UNKNOWN Attending physician on discharge: Ami Jensen Anticipated date of discharge: 03/29/18 Brief History from admission: 82-year-old male with a past medical history significant for normal pressure hydrocephalus, peripheral vascular disease, hypertension, dementia and hyperlipidemia presents to the emergency department accompanied by his for the evaluation of altered mental status and a painful, swollen left foot. The patient's reports that on Wednesday the patient became increasingly agitated with confusion and insomnia. She spoke to the patient's neurologist who prescribed Seroquel 25 mg tablets. The patient reports that the pills did not help her and she increase the dose giving him up to 6 and a 24-hour period with no improvement in behavior. She also states that at approximately 9 PM last night the patient began to complain of left foot pain and would no longer bear weight on that foot. She states he has had right lower extremity weakness that also began yesterday which she noticed while trying to get him to stand with his walker. No fevers/chills. No chest pain or shortness of breath. No abdominal pain. No nausea/vomiting/diarrhea. DS: Diagnosis - Discharge Diagnosis (1) Cellulitis of foot without toes, left Status: Acute (2) Encephalopathy Status: Acute (3) Dementia Status: Acute (4) NPH (normal pressure hydrocephalus) Status: Acute (5) Diabetes Status: Acute DS: Medications - Discharge Medications Prescriptions: haloperidol 0.5 mg PO BID PRN 60 Days #30 tab PRN Reason: Agitation And/Or Hallucination memantine [Namenda] 10 mg PO BID 30 Days #120 tab quetiapine 25 mg PO TID 30 Days #90 tab DS: Summary Hospital Course: 82-year-old male with a past medical history significant for normal pressure hydrocephalus, peripheral vascular disease, hypertension, dementia and hyperlipidemia presents to the emergency department accompanied by his for the evaluation of altered mental status and a painful, swollen left foot. Altered mental status/acute encephalopathy likely multifactorial in patient with normal pressure hydrocephalus with dementia. Also patient with insomnia/poor sleep which may be contributing factor. Head CT was negative for acute process Urine drug screen negative -Neurology consulted, appreciate recommendations. Started on low dose Seroquel , Namenda and Risperdal. Also started on Lexapro. Has requested patient be seen by Psychiatry and felt may benefit from inpatient hospitalization in the geriatric psychiatry [place] -Psychiatry evaluated- delirium superimposed on dementia. Recommended to continue Seroquel, Lexapro. Recommended that Risperdal be discontinued. Agreed with Namenda and also adding Aricept. Patient did not meet criteria for inpatient psychiatric admission. -behavior and confusion improved slowly. Further med changes per neuro, inc. Namenda to 10 mg po bid, Seroquel 25 mg po bid, dc'd Risperidone. -Less agitated but occ. worst at night. Neuro Inc. Seroquel to 25 mg PO TID and added Haldol 0.5 mg PO BID PRN agitation. -Mentation and behavior improved markedly on current medication, no need for Haldol PRN. Okayed to DC per neurology NPH -Neurology following as above, appreciate assistance. -Patient evaluated at [place] for possible PLANT AND MAINTENANCE TECHNICIAN shunt but not felt to be likely effective Headache, hx of NPH -Tylenol prn -if worsening, will check CT of head. Family wants to hold on for now. -stable, no need for CT Left foot swelling/pain, improved ? Cellulitis Possible gout/pseudogout ESR 52, CRP 23 Foot x-ray negative Ankle x-ray negative CT ankle no evidence of fracture or subluxation, osteoarthritis, probable synovitis and tendinosis, subcutaneous edema without organized or drainable fluid Lower extremity ultrasound negative for DVT Treated with Colchicine -Completed Keflex. -left ankle improved, no erythema, no swelling. Cough, chest congestion Improved, no fever, no resp. distress. -Continue with scheduled Duonebs and Mucinex -CXR reviewed, no acute findings. -IS and acapella -monitor respiratory status-stable Hypertension/hyperlipidemia/dementia -BP elevated, possibly due to increased agitation. -Continued on increased dose of Toprol-XL 50 mg daily. Continue patient on Dyazide and Norvasc. -Continued with Hydralazine 25mg BID. -clonidine as needed with parameters. -Continued on Lipitor 40 mg daily Suspected chronic kidney disease May be chronic component creatinine 1.44, suspect near baseline -s/p IV fluid hydration -Monitor renal function as indicated' -renal function stable. Diabetes HgbA1c 8.3 -Changed to heart healthy diabetic diet -continue on Accu-Cheks with insulin sliding scale-change to BID 0700 and 1700. Difficulty with obtaining sample, pt. becoming anxious and refusing. -consulted copper flotation operator -Education provided to family. Chronic right leg/foot pain Hx of PVD -continue with PT Dysphagia -evaluated by speech therapy and placed on nectar thickened liquids. Re- evaluated by speech therapy and changed to thin liquids. Insomnia, possibly contributing to increased agitation -Improved on Seroquel. Deconditioned Impaired ADLs -Ordered PT/OT. Jacob submitted authorization for admission but was declined by insurance. -pt. improved mobility with walker, and contact guard. Family decided for HHC/ PT and nighttime caregiver. CM following, HHC/PT arranged. Instructed pt. and family to: Follow-up with Dr. Casillas in 1-2 weeks Follow-up with PCP 1-2 weeks Diabetic diet Activity as tolerated - Time Spent with Patient Total time spent providing and/or coordinating discharge services:45 minutes. Greater than 30 minutes - Quality: VTE Deep Vein Thrombosis/Pulmonary Embolism Present on Admission: No Exam Vital signs: Vital Signs 03/27/18 16:51 03/27/18 20:00 03/28/18 00:00 Temperature 97.7 F 97.8 F Pulse Rate 69 65 Respiratory Rate 18 20 20 Blood Pressure 125/59 L 141/71 H Pulse Oximetry 96 95 03/28/18 04:00 03/28/18 07:00 03/28/18 07:58 Temperature 97.9 F 98.3 F Pulse Rate 70 68 Respiratory Rate 20 12 20 Blood Pressure 143/76 H 180/78 H Pulse Oximetry 96 94 L 03/28/18 11:35 03/28/18 15:33 Temperature 97.2 F L 97.8 F Pulse Rate 56 L 60 Respiratory Rate 20 20 Blood Pressure 126/67 125/65 Pulse Oximetry 98 97 Intake & Output 03/27/18 03/28/18 03/28/18 18:59 06:59 18:59 Intake Total 1300 / 1300 Output Total 1200 / 1200 950 / 950 Balance 100 / 100 -950 / -950 Weight 90.2 kg Intake: Oral 1300 / 1300 Output: Urine 1200 / 1200 950 / 950 Other: Date of Last Bowel Movement 03/25/18 03/23/18 Results Procedures completed during hospitalization: None Labs on day of discharge: Labs from last 24 hours 03/28/18 07:14 POC Glucose 148 H - Impressions ITS Impressions Foot X-Ray 03/18/18 18:18 CONCLUSION: Intact left foot. Mild hindfoot and midfoot degenerative changes. Nonspecific mild diffuse soft tissue swelling. Head CT 03/18/18 18:18 CONCLUSION: 1. No bleed or other acute intracranial abnormality. 2. Atrophy and chronic ischemic changes. . Venous Doppler Study 03/18/18 18:18 CONCLUSION: 1. No sonographic evidence for lower extremity DVT. Ankle CT 03/19/18 00:00 CONCLUSION: 1. No fracture or subluxation of the left ankle. No destructive bone changes are demonstrated. 2. 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 3. Probable synovitis in the sinus Tarsi, nonspecific. 4. Evidence of old medial and lateral ankle sprains/avulsion fractures. No acute ligamentous abnormality demonstrated. 5. Mild peroneal tendinosis without evidence of tear. 6. Mild Achilles tendinosis. 7. Lateral predominant subcutaneous edema. No organized or drainable fluid seen. Ankle X-Ray 03/19/18 00:00 CONCLUSION: No acute bony abnormality is seen. Chest X-Ray 03/23/18 00:00 CONCLUSION: No acute disease Discharge Plan - Discharge Disposition Patient Disposition: Disch /[facility] - Discharge Condition Condition: Stable - Discharge Order Discharge Orders: Discharge Order (Routine); Ordered 03/21/18 Ordered By: Kaia Camacho - Discharge Details Anticipated Discharge Date: 03/29/18 - Physicians Team Primary Care Provider: UNKNOWN, Attending Provider: Ami Jensen Other Providers: Carl Stevens MD ; Demond Casillas MD ; [facility] ; Kendall Valentino MD
[2018-03-29] MEDS: Heparin - SQ 10,000 UNITS/ML Vial SQ SCH ×2 (05:57→17:38)
[2018-03-29] MEDS: Escitalopram 10 MG Tablet PO SCH (09:22)
[2018-03-29] MEDS: Senna/Docusate Sodium 8.6/50 MG Tablet PO SCH (09:23)
[2018-03-29] MEDS: QUEtiapine 25 MG Tablet PO SCH ×3 (09:23→17:39)
[2018-03-29] MEDS: hydrALAZINE 25 MG Tablet PO SCH (09:23)
[2018-03-29] MEDS: guaiFENesin 600 MG ER Tablet PO SCH (09:23)
[2018-03-29] MEDS: amLODIPine 10 MG Tablet PO SCH (09:23)
[2018-03-29] MEDS: Insulin NovoLOG Aspart Correctional Sugar Inj SQ SCH (09:24)
--- NOTE | 2018-03-29 09:43 | P.PNNEU ---
Subjective Subjective Comments: No acute events, denies any headache chest pain dyspnea focal weakness Active Medications: Active Medications Acetaminophen (Tylenol) 650 mg PO Q4H PRN PRN Reason: Temp > 100.4 Last Admin: 03/27/18 14:49 Dose: 650 mg Al Hydroxide/Mg Hydroxide (Milk Of Magnesia Liq) 30 ml PO Q12H PRN PRN Reason: Mild Constipation Last Admin: 03/20/18 08:42 Dose: 30 ml Amlodipine Besylate (Norvasc) 10 mg PO DAILY [facility] Last Admin: 03/29/18 09:23 Dose: 10 mg Aspirin (Aspirin Chew) 81 mg PO DAILY [facility] Last Admin: 03/29/18 09:22 Dose: 81 mg Atorvastatin Calcium (Lipitor) 40 mg PO DAILY [facility] Last Admin: 03/29/18 09:23 Dose: 40 mg Bisacodyl (Dulcolax Supp) 10 mg RECTAL DAILY PRN PRN Reason: SEVERE CONSITIPATION Clonidine HCl (Catapres) 0.1 mg PO Q6H PRN PRN Reason: SBP>180, DBP>95 Last Admin: 03/29/18 09:22 Dose: 0.1 mg Dextrose (D50w Vial) 50 ml IV.PUSH UNSCH PRN PRN Reason: PER HYPOGLYCEMIA PROTOCOL Escitalopram Oxalate (Lexapro) 10 mg PO DAILY [facility] Last Admin: 03/29/18 09:22 Dose: 10 mg Glucagon (Glucagon Inj) 1 mg OTHER PRN PRN PRN Reason: for Hypoglycemia Protocol Guaifenesin (Mucinex Er) 600 mg PO BID [facility] Last Admin: 03/29/18 09:23 Dose: 600 mg Haloperidol (Haldol) 0.5 mg PO BID PRN PRN Reason: AGITATION AND/OR HALLUCINATION Heparin Sodium (Porcine) (Heparin Inj) 5,000 units SQ Q12H [facility] Last Admin: 03/29/18 05:57 Dose: Not Given Hydralazine HCl (Apresoline) 25 mg PO BID [facility] Last Admin: 03/29/18 09:23 Dose: 25 mg Insulin Aspart (Novolog Insulin Correctional Sugar Inj) 0 unit SQ BID [facility]; Protocol Last Admin: 03/29/18 09:24 Dose: Not Given Lactulose (Lactulose Liq) 30 ml PO DAILY PRN PRN Reason: SEVERE CONSITIPATION Melatonin (Melatonin) 5 mg PO HS PRN PRN Reason: INSOMNIA Last Admin: 03/25/18 21:09 Dose: 5 mg Memantine (Namenda) 10 mg PO BID [facility] Last Admin: 03/29/18 09:23 Dose: 10 mg Metoprolol Succinate (Toprol Xl) 50 mg PO DAILY [facility] Last Admin: 03/29/18 09:23 Dose: 50 mg Ondansetron HCl (Zofran Inj) 4 mg IV.PUSH Q6H PRN PRN Reason: NAUSEA OR VOMITING Last Admin: 03/19/18 09:05 Dose: 4 mg Quetiapine Fumarate (Seroquel) 25 mg PO TID [facility] Last Admin: 03/29/18 09:23 Dose: 25 mg Senna/Docusate Sodium (Radha-Colace) 1 tab PO BID [facility] Last Admin: 03/29/18 09:23 Dose: 1 tab Sennosides (Senokot) 17.2 mg PO Q12H PRN PRN Reason: Moderate Constipation Sodium Chloride (Ns Flush) 2 ml IV.FLUSH PRN PRN PRN Reason: FLUSH AFTER USING IV ACCESS Last Admin: 03/18/18 21:56 Dose: 2 ml Temazepam (Restoril) 15 mg PO HS PRN PRN Reason: INSOMNIA Triamterene/HCTZ (Dyazide 37.5/25 Mg) 1 cap PO DAILY [facility] Last Admin: 03/29/18 09:23 Dose: 1 cap Allergies/Adverse Reactions: Allergies Allergy/AdvReac Type Severity Reaction Status Date / Time benazepril AdvReac Severe swelling Verified 03/18/18 22:51 of face lips captopril AdvReac Severe swelling Verified 03/18/18 22:51 of face lips enalaprilat AdvReac Severe swelling Verified 03/18/18 22:51 of face lips fosinopril AdvReac Severe swelling Verified 03/18/18 22:51 of face lips lisinopril AdvReac Severe swelling Verified 03/18/18 22:51 of face lips quinapril AdvReac Severe swelling Verified 03/18/18 22:51 of face lips Review of Systems All other systems reviewed negative except as stated in HPI Physical Exam Vital signs: Vital Signs 03/28/18 11:35 03/28/18 15:33 03/28/18 20:00 Temperature 97.2 F L 97.8 F 97.9 F Pulse Rate 56 L 60 68 Respiratory Rate 20 20 Blood Pressure 126/67 125/65 155/66 H Pulse Oximetry 98 97 95 03/29/18 00:00 03/29/18 01:59 03/29/18 04:00 Temperature 97.7 F 97.9 F Pulse Rate 67 74 Respiratory Rate 20 16 20 Blood Pressure 168/87 H 165/84 H Pulse Oximetry 96 98 03/29/18 08:00 Temperature 97.7 F Pulse Rate 67 Respiratory Rate 18 Blood Pressure 209/88 H Pulse Oximetry 96 Intake & Output 03/28/18 03/29/18 03/29/18 18:59 06:59 18:59 Output Total 600 / 600 Balance -600 / -600 Weight 87.9 kg Output: Urine 600 / 600 Other: Date of Last Bowel Movement 03/28/18 03/28/18 Narrative: GENERAL: Well-developed well-nourished elderly male patient, no acute distress. Sitting up in bed. NECK: Trachea midline. CARDIOVASCULAR: Regular rate and rhythm. RESPIRATORY: No accessory muscle use. Fair air entry. GASTROINTESTINAL: Abdomen soft, non-tender, nondistended. +BS. MUSCULOSKELETAL: Extremities without clubbing or cyanosis, or edema NEUROLOGICAL: Awake, oriented x 2. Not to exact date or month, pleasant sitting up eating breakfast, recognizes me, no focal deficits. Following commands, articulate, Was intact face symmetric, no pronator drift PSYCHIATRIC: calm, pleasant. - Constitutional no acute distress - Routine HEENT Exam Head: Present: normocephalic Eye: Present: EOMI Review/Management - Diagnosis (1) Behavioral disorder Status: Acute Current Visit: Yes (2) Encephalopathy Code(s): G93.40 - Encephalopathy, unspecified Status: Acute Current Visit: Yes (3) Dementia Code(s): F03.90 - Unspecified dementia without behavioral disturbance Status: Acute Current Visit: Yes (4) Diabetes Code(s): E11.9 - Type 2 diabetes mellitus without complications Status: Acute Current Visit: Yes - Review/Management Plan: Fluctuating mental status. Moderate dementia suspect of Alzheimer's type he also may have Lewy body component based on the recent delusions and almost visual hallucinations and at times sensitivity to neuroleptic agents On low-dose Namenda, low-dose Seroquel, Lexapro Recommendations doing well namenda 10mg bid On Seroquel 25 mg p.o. twice daily as needed d/c planning today home/rehab f/u with me outpatient as scheduled
--- NOTE | 2018-03-29 13:45 | P.PNIM ---
Subjective Interval history: Follow-up visit dementia, NPH. Patient seen and examined today. and daughter at bedside. Reports he is doing well. They are waiting for the hospital bed to, so that he can go home today with family member. Requesting for allopurinol to be part of his med list. Otherwise, denies pain and discomfort. Denies SOB/ dyspnea. Denies chest pain, palpitations, headaches, dizziness. Denies fevers, chills, n/v/d. Physical Exam Vital signs: Vital Signs 03/28/18 15:33 03/28/18 20:00 03/29/18 00:00 Temperature 97.8 F 97.9 F 97.7 F Pulse Rate 60 68 67 Respiratory Rate 20 20 Blood Pressure 125/65 155/66 H 168/87 H Pulse Oximetry 97 95 96 03/29/18 01:59 03/29/18 04:00 03/29/18 08:00 Temperature 97.9 F 97.7 F Pulse Rate 74 67 Respiratory Rate 16 20 18 Blood Pressure 165/84 H 209/88 H Pulse Oximetry 98 96 03/29/18 12:00 Temperature 97.6 F Pulse Rate 56 L Respiratory Rate 16 Blood Pressure 116/59 L Pulse Oximetry 94 L Intake & Output 03/28/18 03/29/18 03/29/18 18:59 06:59 18:59 Output Total 600 / 600 Balance -600 / -600 Weight 87.9 kg Output: Urine 600 / 600 Other: Date of Last Bowel Movement 03/28/18 03/28/18 Narrative: GENERAL: Well-developed well-nourished elderly male patient, no acute distress. Sitting up in bed. NECK: Trachea midline. CARDIOVASCULAR: Regular rate and rhythm. RESPIRATORY: No accessory muscle use. Fair air entry. GASTROINTESTINAL: Abdomen soft, non-tender, nondistended. +BS. MUSCULOSKELETAL: Extremities without clubbing or cyanosis, or edema NEUROLOGICAL: Awake, oriented x 2. Not to exact date or month, pleasant sitting up eating, no focal deficits. Following commands, articulate, face symmetric PSYCHIATRIC: calm, pleasant. Results - Labs CBC & Chem 7: 03/20/18 04:23 03/20/18 04:23 - Procedures None Assessment and Plan - Assessment (1) Cellulitis of foot without toes, left Code(s): L03.116 - Cellulitis of left lower limb Status: Acute (2) Encephalopathy Code(s): G93.40 - Encephalopathy, unspecified Status: Acute (3) Dementia Code(s): F03.90 - Unspecified dementia without behavioral disturbance Status: Acute (4) NPH (normal pressure hydrocephalus) Code(s): G91.2 - (Idiopathic) normal pressure hydrocephalus Status: Acute (5) Diabetes Code(s): E11.9 - Type 2 diabetes mellitus without complications Status: Acute - Plan 82-year-old male with a past medical history significant for normal pressure hydrocephalus, peripheral vascular disease, hypertension, dementia and hyperlipidemia presents to the emergency department accompanied by his for the evaluation of altered mental status and a painful, swollen left foot. Altered mental status/acute encephalopathy likely multifactorial in patient with normal pressure hydrocephalus with dementia. Also patient with insomnia/poor sleep last night which may be contributing factor. Head CT negative for acute process Urine drug screen negative -Neurology consulted, appreciate recommendations. Started on low dose Seroquel, Namenda and Risperdal. Also started on Lexapro. Has requested patient be seen by Psychiatry and feels may benefit from inpatient hospitalization in the [facility] psychiatry [facility] -Psychiatry evaluated- delirium superimposed on dementia. Recommend to continue Seroquel, Lexapro. Recommends that Risperdal can be discontinued. Agrees with Namenda and also adding Aricept. Patient does not meet criteria for inpatient psychiatric admission. -med changes per neuro, inc. Namenda to 10 mg po bid, Seroequel 25 mg po bid , dc'd Risperidone. -appreciate neuro input, d/w Dr. Cornelius yesterday. Inc. Seroquel to 25 mg PO TID and added Haldol 0.5 mg PO BID PRN agitation. -Mentation and behavior improved markedly on current medication. Okay to DC per neurology NPH -Neurology following as above, appreciate assistance. -Patient evaluated at [facility] for possible PROGRAM MANAGEMENT ANALYST shunt but not felt to be likely effective Headache, hx of NPH -Tylenol prn -if worsening, will check CT of head. Family wants to hold on for now. -Stable. Left foot swelling/pain, improved ? Cellulitis Possible gout/pseudogout -ESR 52, CRP 23 -Foot x-ray negative -Ankle x-ray negative -CT ankle no evidence of fracture or subluxation, osteoarthritis, probable synovitis and tendinosis, subcutaneous edema without organized or drainable fluid -Lower extremity ultrasound negative for DVT -Treated with Colchicine -Completed Keflex. -left ankle improved, no erythema, no swelling. -Colchicine daily Cough, chest congestion Improved, no fever, no resp. distress. -Continue with scheduled Duonebs and Mucinex -CXR reviewed, no acute findings. -IS and acapella -monitor respiratory status-stable Hypertension/hyperlipidemia/dementia -BP elevated, possibly due to increased agitation. -Continue on increased dose of Toprol-XL 50 mg daily. Continue patient on Dyazide and Norvasc. -Continue with Hydralazine 25mg BID. -clonidine as needed with parameters. -Continue on Lipitor 40 mg daily Suspected chronic kidney disease May be chronic component creatinine 1.44, suspect near baseline -s/p IV fluid hydration -Monitor renal function as indicated Diabetes HgbA1c 8.3 -Changed to heart healthy diabetic diet -continue on Accu-Cheks with insulin sliding scale-change to BID 0700 and 1700. Difficulty with obtaining sample, pt. becoming anxious and refusing. -consulted pastry assistant Chronic right leg/foot pain Hx of PVD -continue with PT Dysphagia -evaluated by speech therapy and placed on nectar thickened liquids. -Re-evaluated by speech therapy and changed to thin liquids. Insomnia, possibly contributing to increased agitation -Started on Risperdal by neurology. Seroquel added as well. Deconditioned Impaired ADLs -continue participation with PT/OT. Jacob submitted authorization for admission but was declined by insurance. -pt. has improved mobility with walker, and contact guard. Will be going home with HHC/PT and nighttime caregiver. DVT prophylaxis Heparin SQ Code Status: Full Code Discussed Condition With: Patient, , daughter, nurse Discharge Planning: Plan to DC home today with home health care
[2018-03-29 17:11] VITALS: RESP 18
[2018-03-29 17:15] VITALS: BP 109/56; PULSE 57; TEMP 98.1; O2SAT 96
== END 2018-03-29 19:42 | disposition home health service (06) ==
LOC: NEPE 17:48 → INTOOBSV 23:01 → NEDA 23:01 → N05 03-19 01:39
PROVIDERS: ADMIT Family Medicine; ATTEND Family Medicine
DX: G91.2 (Idiopathic) normal pressure hydrocephalus; E78.00 Pure hypercholesterolemia, unspecified; I11.9 Hypertensive heart disease without heart failure; E78.5 Hyperlipidemia, unspecified; Z91.81 History of falling; R13.10 Dysphagia, unspecified; M19.079 Primary osteoarthritis, unspecified ankle and foot; R26.2 Difficulty in walking, not elsewhere classified; I73.9 Peripheral vascular disease, unspecified; R94.31 Abnormal electrocardiogram [ECG] [EKG]; E11.65 Type 2 diabetes mellitus with hyperglycemia; Z77.22 Contact with and (suspected) exposure to environmental tobacco smoke (acute) (chronic); F03.90 Unspecified dementia, unspecified severity, without behavioral disturbance, psychotic disturbance, mood disturbance, and anxiety; L03.116 Cellulitis of left lower limb; Z86.73 Personal history of transient ischemic attack (TIA), and cerebral infarction without residual deficits; G93.40 Encephalopathy, unspecified; M67.879 Other specified disorders of synovium and tendon, unspecified ankle and foot; C61 Malignant neoplasm of prostate; Z66 Do not resuscitate; Z79.899 Other long term (current) drug therapy; G47.00 Insomnia, unspecified; Z95.3 Presence of xenogenic heart valve